=== PATIENT | male | born 1950 | race Caucasian/White ===

== ENCOUNTER → 2016-07-31 | Outpatient (CLI) | payer OTHER ==
--- NOTE | 2016-07-31 13:18 | DIAGNOSTIC IMAGING REPORT ---
ULTRASOUND OF THE CAROTID ARTERIES CLINICAL HISTORY: Hollenhorst plaque. COMPARISON STUDY: No priors. TECHNIQUE: Real-time, grayscale, and color Doppler sonography of the carotid arteries is performed. Images are reviewed in the transverse and longitudinal planes. FINDINGS: Blood pressure in the right arm measures 140/80 and blood pressure in the left arm measures 130/80. The carotid arteries are patent bilaterally and demonstrate antegrade flow. There is no significant atherosclerotic plaque seen. Normal doppler arterial waveforms are seen throughout. Velocity measurements are listed below. Common carotid peak systolic velocity (cm/sec): RIGHT: 63 LEFT: 62 ICA proximal peak systolic velocity (cm/sec): RIGHT: 40 LEFT: 44 ICA mid peak systolic velocity (cm/sec): RIGHT: 77 LEFT: 47 ICA distal peak systolic velocity (cm/sec): RIGHT: 82 LEFT: 70 ICA/CC peak systolic ratio: RIGHT: 1.3 LEFT: 1.1 Antegrade flow was shown in the vertebral arteries. The external carotid arteries are patent. IMPRESSION: 1. There is no sonographic evidence of hemodynamically significant stenosis in the right or left carotid arterial system. 2. Antegrade flow is shown in the vertebral arteries. Electronically signed by: Baudilio Soni M.D. 07/31/2016 1:17 PM Dictated Date/Time: 07/31/2016 1:16 PM
== END | disposition home or self-care (01) ==
LOC: C.ULTR 12:25
PROVIDERS: ATTEND Ophthalmology
DX: H34.212 Partial retinal artery occlusion, left eye (principal)

== ENCOUNTER 2023-12-29 15:57 | Inpatient (IN) ==
--- NOTE | 2023-12-29 16:26 | Emergency Department Note ---
Impression & Plan Chest pain, COPD (chronic obstructive pulmonary disease) ED Provider Note NAME: SRAVANTHI KOCH AGE: 73 SEX: M : 1950 ARRIVES VIA: Walk-In INFORMANT: Patient, ED PROVIDER(S): Pavel Isaac MD CHIEF COMPLAINT: Chest pain MEDICAL DECISION MAKING: Patient presents due to concern for chest pain. IV was established and blood work was obtained. Nitro and aspirin ordered. Blood work shows a normal white count H&H and platelet count. The patient's kidney function is unremarkable. Mild hyponatremia 135. Initial troponin negative. Patient is a heavy smoker does not had any provocative testing in several years. Patient did feel better after the nitro and aspirin. Given this do believe the patient would benefit further evaluation treatment and monitoring. I did speak with the patient informed him of the recommendations and he is comfortable with the plan of care as does his . Spoke with KRZYSZTOF Nieto and the patient was admitted by Dr. Cummings. Discussion w/ other healthcare providers: KRZYSZTOF Nieto and Dr. Cummings inpatient medicine service Prior /Outside records reviewed: None Differential diagnosis: Cardiac ischemia, aortic dissection, pulmonary embolism, pneumothorax, pneumonia, pericarditis, myocarditis, GERD, cholecystitis, pancreatitis, musculoskeletal, as well as other pathologies were considered. Diagnostics, as interpreted by me: ECG: Normal sinus rhythm, rate of 83, normal intervals, left axis deviation no ST elevations. Cardiac monitoring: An order was placed for continuous cardiac monitoring. The monitor shows a rate of 83 with sinus rhythm. Patient was placed on pulse oximetry Medical decision rules: Heart score Imaging studies: I informally interpreted the patient's chest x-ray does not show obvious pneumonia or pneumothorax with formal report to follow. HPI: Patient presents due to concern for chest pain. The patient states that this began maybe about 30 minutes ago while driving as they were coming up over the [facility]. Patient states that he does have a recent concern with regard to an EKG that showed a possible prior heart attack and the patient was to be scheduled for a nuclear stress test. The patient has yet to complete this. The patient states that it still feels "funny in there." He states that "something is not right." Patient Nuys any prior history of known heart disease. Patient does have a known history of COPD with chronic cough. Patient is still a smoker. Patient also reports that he does have a prior history of a thoracic aortic aneurysm about 4-1/2 cm which gets monitored. Patient denies any exertional symptoms per se but the patient states that he does not do any significant activity given his history of his aneurysm as he has been told not to. Patient denies any falls or trauma. The patient does have mild leg swelling which is relatively unchanged for the patient. PAST MEDICAL HISTORY: See Below PAST SURGICAL HISTORY: See Below SOCIAL HISTORY: See Below HOME MEDICATIONS: See Below ALLERGIES: See Below VITALS: See Below PHYSICAL EXAMINATION: GENERAL: NAD, non-toxic. Wearing glasses. EYE EXAM: Normal conjunctiva. PERRL, no anisocoria and EOM's grossly intact w/o pain. OROPHARYNX: Moist mucus membranes, grossly normal dentition. NECK: Trachea midline, no stridor. LUNGS: Scant wheeze bilateral chest. Normal chest wall mechanics. HEART: NSR, no MRG. ABDOMEN: Abdomen soft, non-tender, no masses, no rebound or guarding. BACK: No CVA TTP. SKIN: No rashes and no bruising. UPPER EXTREMITIES: Upper extremities are grossly normal. LOWER EXTREMITIES: Grossly normal, trace pretibial edema without calf pain or erythema. NEURO EXAM: A&O x3, cranial nerves II-XII grossly intact, normal speech, moves all 4 extremities. Past Med/Surg History Problem List (Updated 12/29/23 @ 22:01 by Pavel Isaac MD) Chest pain (Acute) Tobacco use History of AAA (abdominal aortic aneurysm) repair COPD (chronic obstructive pulmonary disease) (Acute) Chest pain, rule out acute myocardial infarction Surgical History No pertinent past surgical history Family History Other Coronary heart disease Social History Smoking Status: Current every day smoker Cigarettes Per Day: 2.5 ppd; Second Hand Exposure: No; Do You Dip or Chew Tobacco: No; Tobacco Cessation Education Requested by Patient: Yes Hx Alcohol Use: Yes Alcohol type: beer Alcohol type Comment: up to 6 beers almost every daily Hx Substance Use: No Preferred Language: Samoan Feels Safe at Home: Yes Allergies Allergies Allergy/AdvReac Type Severity Reaction Status Date / Time tree and shrub pollen Allergy Difficulty Verified 12/29/23 21:21 Breathing bee pollen AdvReac Redness of Verified 12/29/23 21:21 Skin Home Meds Home Medications Medication Instructions Recorded Confirmed None (Patient States No Home Meds) ##0 12/21/09 albuterol 90 mcg/actuation aerosol 108 mcg inhalation Q4H PRN sob 12/29/23 12/29/23 inhaler amlodipine 5 mg tablet 5 mg PO DAILY 12/29/23 12/29/23 cholestyramine (with sugar) 4 gram 4 g PO DAILY PRN cholesterol 12/29/23 12/29/23 powder for susp in a packet (Questran) fluticasone furoate 100 1 inh inhalation DAILY 12/29/23 12/29/23 mcg-vilanterol 25 mcg/dose inhalation powder folic acid 1 mg tablet 1 mg PO DAILY 12/29/23 12/29/23 mecobalamin (vitamin B12) 1,000 1,000 mcg PO DAILY 12/29/23 12/29/23 mcg chewable tablet (B12 Active) rosuvastatin 40 mg PO DAILY 12/29/23 12/29/23 Results & Data (ED) Vital Signs Vital Signs - 24 hr 12/29/23 16:02 12/29/23 16:02 12/29/23 16:21 Temperature 36.5 C Temperature Source Temporal Artery Scan Pulse Rate 85 84 Respiratory Rate 17 Respiratory Effort / Characteristics SOB on Exertion Blood Pressure 137/81 Blood Pressure Mean 99 Pulse Oximetry 92 Oxygen Delivery Method Room Air Sepsis Recent Fever Within 48 Hours No Sepsis New/Unexplained Change in Mental Status N/A Sepsis Action Taken by Nursing No Action Required 12/29/23 17:28 12/29/23 17:28 12/29/23 20:27 Temperature Temperature Source Pulse Rate 75 74 Respiratory Rate 18 Respiratory Effort / Characteristics Blood Pressure Blood Pressure Mean Pulse Oximetry 92 Oxygen Delivery Method Room Air Room Air Sepsis Recent Fever Within 48 Hours Sepsis New/Unexplained Change in Mental Status Sepsis Action Taken by Halfway Medications Current Medication List: was personally reviewed by me Laboratory Data Attestation: I reviewed the patient's lab results. 12/29/23 16:11 12/29/23 16:11 Lab Results 10/21/24 10/21/24 Range/Units 16:11 20:40 WBC 7.86 (4.8-10.8) K/ul RBC 5.09 (4.70-6.10) M/uL Hgb 17.2 (14.0-18.0) g/dl Hct 48.6 (42.0-52.0) % MCV 95.5 (80.0-100.0) fL MCH 33.8 (25.0-34.0) pg MCHC 35.4 (32.0-36.0) g/dL RDW Std Deviation 41.1 (36.4-46.3) fL RDW Coeff of Zenaida 11.8 (11.5-14.5) % Plt Count 262 (130-400) K/uL MPV 10.4 (9.4-12.4) fL Immature Gran % (Auto) 1.1 % Neut % (Auto) 42.0 % Lymph % (Auto) 41.2 % Frederick % (Auto) 10.9 % Eos % (Auto) 3.7 % Baso % (Auto) 1.1 % Neut # (Auto) 3.29 (1.40-6.50) K/uL Lymph # (Auto) 3.24 (1.20-3.40) K/uL Frederick # (Auto) 0.86 H (0.11-0.59) K/uL Eos # (Auto) 0.29 (0.00-0.50) K/uL Baso # (Auto) 0.09 (0.00-0.20) K/uL Immature Gran # (Auto) 0.09 (0.01-0.20) K/uL PT 10.9 (9.0-12.0) Seconds INR 1.0 (0.9-1.1) APTT 27 (21-31) Seconds PTT Ratio 1.0 Sodium 135 L (136-145) mmol/L Potassium 3.9 (3.5-5.1) mmol/L Chloride 100 (98-107) mmol/L Carbon Dioxide 29 (21-32) mmol/L Anion Gap 6 (3-11) BUN 7 (6-23) mg/dl Creatinine 0.83 (0.6-1.4) mg/dl Est Cr Clr Drug Dosing 101.8 ml/min eGFR 92.99 BUN/Creatinine Ratio 8.4 L (10-20) Glucose 94 (70-99(Fasting)) mg/dl Calcium 9.5 (8.6-10.3) mg/dl Total Bilirubin 1.1 H (0.2-1.0) mg/dl AST 18 (13-39) U/L ALT 13 (7-52) U/L Alkaline Phosphatase 63 (34-104) U/L Troponin I High Sens 5.1 5.1 (0-20) pg/ml Total Protein 7.3 (6.0-8.3) gm/dl Albumin 4.4 (3.4-5.0) gm/dl Globulin 2.9 (2.5-4.0) gm/dl Albumin/Globulin Ratio 1.5 (0.9-2) Triglycerides 101 (0-150) mg/dl Cholesterol 114 (0-200) mg/dl LDL Cholesterol, Calc 45 mg/dl VLDL Cholesterol, Calc 20 (0-30) mg/dl HDL Cholesterol 49 mg/dl Cholesterol/HDL Ratio 2.3 (0-5) Vitamin B12 353 (180-914) pg/ml TSH 2.718 (0.300-4.500) uIu/ml Administered Medications Discontinued Medications Aspirin (Aspirin Chew 324 Mg) 324 mg PO NOW STA Stop: 12/29/23 16:42 Last Admin: 12/29/23 16:54 Dose: 324 mg Documented By: CEF Gabapentin (Gabapentin 400 Mg Cap) 800 mg PO NOW ONE Stop: 12/29/23 20:01 Last Admin: 12/29/23 20:26 Dose: 800 mg Documented By: CEF Nitroglycerin (Nitroglycerin Sl 0.4 Mg/Tab Tab) 0.4 mg SL NOW STA Stop: 12/29/23 16:42 Last Admin: 12/29/23 16:54 Dose: 0.4 mg Documented By: CEF Imaging Data Radiologist's Impression: Chest X-Ray 12/29/23 16:05 SINGLE VIEW CHEST CLINICAL HISTORY: Atypical chest pain FINDINGS: 2 AP, portable, upright chest radiographs are compared to study dated 12/21/2009. The examination is degraded by portable technique and apical lordotic positioning. The heart is enlarged noting atherosclerotic calcification of the thoracic aorta. The pulmonary vasculature is noncongested. Chronic interstitial thickening is similar to previous. There are scattered calcified granulomas. No airspace consolidation or large pleural effusion is identified. No pneumothorax is seen. The skeletal structures are osteopenic. The bony thorax is grossly intact. IMPRESSION: Cardiomegaly with no acute cardiopulmonary abnormality identified. ACT 112: Negative or not required by law. Electronically signed by: Baudilio Soni M.D. 12/29/2023 6:06 PM Discharge Plan Visit Data Chief Complaint: Cardiac Assessment Stated Complaint: CHESST PAIN, SOB, ED Provider: Pavel Isaac Discharge Problem: Chest pain, COPD (chronic obstructive pulmonary disease) Forms Stand Alone Forms: [employer] Prescriptions Prescriptions: No Action None (Patient States No Home Meds) . Qty: 0 folic acid 1 mg Tablet 1 mg PO DAILY albuterol 90 mcg/actuation Aerosol 108 mcg INHALATION Q4H PRN (Reason: sob) cholestyramine (with sugar) [Questran] 4 gram Powder In Packet 4 g PO DAILY PRN (Reason: cholesterol) Rx Instructions: administer w/meal; avoid other meds within 1hr before or 4-6hr after dose fluticasone furoate-vilanterol 100-25 mcg/dose Blister With Device 1 inh INHALATION DAILY mecobalamin (vitamin B12) [B12 Active] 1,000 mcg Tablet,Chewable 1,000 mcg PO DAILY rosuvastatin 40 mg PO DAILY amlodipine 5 mg tablet 5 mg PO DAILY Rx Instructions: UNABLE TO VERIFY WITH PT THIS IS PER PHARMACY FILL Referrals Referrals: Vilma Winters, [Outside Practitioners] - Discharge Problem: Chest pain Qualifiers: Chest pain type: unspecified Qualified Code(s): R07.9 - Chest pain, unspecified COPD (chronic obstructive pulmonary disease) Qualifiers: COPD type: unspecified COPD Qualified Code(s): J44.9 - Chronic obstructive pulmonary disease, unspecified
[2023-12-29 16:29] LABS: Basophils # (auto) 0.09 K/uL (0.00-0.20); Basophils % (auto) 1.1 %; Eosinophils # (auto) 0.29 K/uL (0.00-0.50); Eosinophils % (auto) 3.7 %; Hematocrit (blood only) 48.6 % (42.0-52.0); Hemoglobin 17.2 g/dl (14.0-18.0); Immature Granulocytes # (auto) 0.09 K/uL (0.01-0.20); Immature Granulocytes % (auto) 1.1 %; Lymphocytes # (auto) 3.24 K/uL (1.20-3.40); Lymphocytes % (auto) 41.2 %; Mean Corpuscular Hemoglobin 33.8 pg (25.0-34.0); Mean Corpuscular Hgb Conc 35.4 g/dL (32.0-36.0); Mean Corpuscular Volume 95.5 fL (80.0-100.0); Mean Platelet Volume 10.4 fL (9.4-12.4); Monocytes # (auto) 0.86 K/uL (0.11-0.59); Monocytes % (auto) 10.9 %; Neutrophils # (auto) 3.29 K/uL (1.40-6.50); Platelet Count 262 K/uL (130-400); RDW Coefficient of Variation 11.8 % (11.5-14.5); RDW Standard Deviation 41.1 fL (36.4-46.3); Red Blood Count 5.09 M/uL (4.70-6.10); White Blood Count 7.86 K/ul (4.8-10.8)
[2023-12-29 16:44] LABS: Albumin Globulin Ratio 1.5 (0.9-2); Albumin Level 4.4 gm/dl (3.4-5.0); BUN Creatinine Ratio 8.4 (10-20); Bilirubin,Total 1.1 mg/dl (0.2-1.0); Calcium 9.5 mg/dl (8.6-10.3); Creatinine Clr Calc Pharmacy 101.8 ml/min; Globulin 2.9 gm/dl (2.5-4.0); Potassium 3.9 mmol/L (3.5-5.1); Total Protein 7.3 gm/dl (6.0-8.3)
[2023-12-29 16:50] LABS: Troponin I High Sensitivity 5.1 pg/ml (0-20)
[2023-12-29] MEDS: NITROGLYCERIN SL 0.4 MG/TAB TAB SL STA (16:54)
[2023-12-29] MEDS: ASPIRIN CHEW 324 MG PO STA (16:54)
[2023-12-29 17:00] LABS: Partial Thromboplastin Time 27 Seconds (21-31); Prothrombin Time 10.9 Seconds (9.0-12.0)
--- NOTE | 2023-12-29 18:07 | XRay Report ---
SINGLE VIEW CHEST CLINICAL HISTORY: Atypical chest pain FINDINGS: 2 AP, portable, upright chest radiographs are compared to study dated 12/21/2009. The exami nation is degraded by portable technique and apical lordotic positioning. The heart is enlarged notin g atherosclerotic calcification of the thoracic aorta. The pulmonary vasculature is noncongested. Chr onic interstitial thickening is similar to previous. There are scattered calcified granulomas. No air space consolidation or large pleural effusion is identified. No pneumothorax is seen. The skeletal st ructures are osteopenic. The bony thorax is grossly intact. IMPRESSION: Cardiomegaly with no acute cardiopulmonary abnormality identified. ACT 112: Negative or not required by law. Electronically signed by: Baudilio Soni M.D. 12/29/2023 6:06 PM
[2023-12-29] MEDS ORDERED: POLYETHYLENE (MIRALAX) 17 GM PACK PO PRN (19:02)
[2023-12-29] MEDS ORDERED: MAGNESIUM HYDROXIDE SUSP 30 ML UDC PO PRN (19:02)
[2023-12-29] MEDS ORDERED: ACETAMINOPHEN 325 MG TAB PO PRN (19:02)
[2023-12-29] MEDS ORDERED: ONDANSETRON INJ 2 MG/ML 2 ML VIAL IV PRN (19:02)
[2023-12-29] MEDS ORDERED: Patient's HEIGHT &/or WEIGHT Needed SCH (19:15)
--- NOTE | 2023-12-29 19:15 | History & Physical Report ---
Date of Service December 29, 2023 Assessment & Plan (1) Chest pain, rule out acute myocardial infarction: (2) COPD (chronic obstructive pulmonary disease): (3) History of AAA (abdominal aortic aneurysm) repair: (4) Tobacco use: Plan Mr. Pruett is a 73-year-old male who presented to the ED today after he started to have crushing anterior chest pain that resulted in him having to lung puller his car. He reports that this pain is the second time that he has experienced this with the first 1 being last week. [facility] was evaluated [facility] the [facility] and is to have a nuclear stress test and echo scheduled which has not been done yet. Past medical history includes: HLD, HTN, history of thoracic AAA COPD (no CPAP or supplemental home O2), alcohol use (up to a 6 pack of beer daily), tobacco use (2.5 ppd), His AAA measuring 4.5 cm per patient that is monitored as an outpatient every 6 to 12 months with the last scan being approximately 1 year ago. No leukocytosis, troponin negative, LFTs negative, otherwise electrolytes unremarkable. CXR reveals cardiomegaly without acute cardiopulmonary disease process. Patient receives most care through the [facility], but also sees Dr. Bulladr. ECG in ED normal sinus rhythm. He states that when he went for his yearly exam with the [facility] they did an EKG and noted that he may have had a prior AMI for which an outpatient stress test and echocardiogram was to be performed which has not been scheduled yet. Normotensive and not hypoxic in the ED. ED provider gave aspirin and nitro with full resolution of chest pain. Chest pain rule out AMI: Acute moderate risk heart score; admit to PCU ECG NSR Initial troponin negative; trend x1 ASA plus nitro given in ED with full resolution of his chest pain Echo ordered Check TSH EKG PRN NPO after MN pending cards consult Cardiology consult placed History of thoracic AAA: Chronic measuring 4.5 cm [id number]; last scan one year ago ECHO ordered Alcohol use: Chronic Drinks up to 6 pack of beer daily Takes Folic Acid at home Thiamine and Folic acid while here AWSS scale ordered with Gabapentin + Ativan PRN COPD: Tobacco use: Chronic Smokes 2.5 ppd Hold on Nicotine patch for now given symptoms Smoking cessation recommended HTN: Chronic Takes amlodipine; continue Heart Healthy diet/NPO after MN as outlined above HLD: Chronic Takes rosuvastatin; continue Lipid panel ordered Disposition: PCP: [facility] CODE STATUS: Full code VTE prophylaxis: Heparin SQ I spent a total of 86 minutes coordinating, documenting, and providing care for this patient excluding time spent in the performance of separately billed services. All of the aforementioned completed while collaborating with the assigned attending physician for a full treatment plan. Please see their addendum for further details. History of Present Illness Chief Complaint: chest pain Primary Care Provider: [facility] Mr. Pruett is a 73-year-old male who presented to the ED today after he started to have Crushing anterior chest pain that resulted in him having to lung puller his car. He reports that this pain is the second time that he has experienced this with the first 1 being last week. He was evaluated at the [facility] and is to have a nuclear stress test and echo scheduled which has not been done yet. Past medical history includes: HLD, HTN, history of thoracic AAA COPD (no CPAP or supplemental home O2), alcohol use (up to a 6 pack of beer daily), tobacco use (2.5 ppd), His AAA measuring 4.5 cm per patient that is monitored as an outpatient every 6 to 12 months with the last scan being approximately 1 year ago.Notes that he has a cyst in his throat that he is following up with ENT to have a biopsy with on January 21 2024. In the ED no leukocytosis, troponin negative, LFTs negative, otherwise josiane ctrolytes unremarkable. CXR reveals cardiomegaly without acute cardiopulmonary disease process. Patient receives most care through the [facility], but also sees Dr. Bullard. ECG in ED normal sinus rhythm. He states that when he went for his yearly exam with the [facility] they did an EKG and noted that he may have had a prior AMI for which an outpatient stress test and echocardiogram was to be performed which has not been scheduled yet. Normotensive and not hypoxic in the ED. ED provider gave aspirin and nitro with full resolution of chest pain. Currently patient denies headache, visual or auditory changes, chest pain, shortness of breath, nausea, vomiting, diarrhea, abdominal pain or tenderness, hematochezia or dysuria, recent falls or trauma. Currently, patient sitting in his hospital bed in no apparent distress without chest pain. He states that he does have some intermittent LE swell, but he also takes Amlodipine. No LE swelling today. Patient will be admitted for further evaluation of management of his chest pain. Please see A/P for further details. Home Medications Medication Instructions Recorded Confirmed Type None (Patient States No Home Meds) ##0 12/21/09 History albuterol 90 mcg/actuation aerosol 108 mcg inhalation Q4H PRN sob 12/29/23 12/29/23 History inhaler amlodipine 5 mg tablet 5 mg PO DAILY 12/29/23 12/29/23 History cholestyramine (with sugar) 4 gram 4 g PO DAILY PRN cholesterol 12/29/23 12/29/23 History powder for susp in a packet (Questran) fluticasone furoate 100 1 inh inhalation DAILY 12/29/23 12/29/23 History mcg-vilanterol 25 mcg/dose inhalation powder folic acid 1 mg tablet 1 mg PO DAILY 12/29/23 12/29/23 History mecobalamin (vitamin B12) 1,000 1,000 mcg PO DAILY 12/29/23 12/29/23 History mcg chewable tablet (B12 Active) rosuvastatin 40 mg PO DAILY 12/29/23 12/29/23 History Past Med/Surg History Problem List (Updated 12/29/23 @ 19:13 by KRZYSZTOF Minaya) Tobacco use History of AAA (abdominal aortic aneurysm) repair COPD (chronic obstructive pulmonary disease) Chest pain, rule out acute myocardial infarction Surgical History (Updated 12/29/23 @ 20:00 by KRZYSZTOF Minaya) No pertinent past surgical history Family History (Updated 12/29/23 @ 20:00 by KRZYSZTOF Minaya) Other Coronary heart disease Social History (Updated 12/29/23 @ 20:01 by KRZYSZTOF Minaya) Smoking Status: Current every day smoker Cigarettes Per Day: 2.5 ppd; Second Hand Exposure: No; Do You Dip or Chew Tobacco: No; Tobacco Cessation Education Requested by Patient: Yes Hx Alcohol Use: Yes Alcohol type: beer Alcohol type Comment: up to 6 beers almost every daily Hx Substance Use: No Preferred Language: Citizen Of [place] Feels Safe at Home: Yes Review of Systems Review of Systems: Neuro: (-) Falls, trauma, slurred speech HEENT: (-) BUSTAMANTE, dizziness, dysphagia, visual or auditory changes CV: (-) CP, palpitations, swelling Resp: (-) SOB GI: (-) appetite changes, N/V/D, bowel changes : (-) urinary changes Skin: (-) rashes Psych: (-) anxiety, depression Physical Exam Physical Exam: Neuro: AAOx4, PERRLA, no aphagia, memory changes, CNII-XII grossly intact HEENT: head normocephalic, moist mucus membranes CV: S1/S2, (-) M/G/R, (-) edema, cap refill < 3 seconds Resp: Lungs CTA in all rahman. On RA GI: Abdomen S/NT/ND, Ax4 bowel sounds, (-) CVA tenderness Musculoskeletal: 5/5 B/L UE strength, 5/5 B/L LE strength. No gait disturbance Skin: (-) rashes , (-) erythema. Psych: euthymic mood Results & Data Results & Data Vital Signs (Past 12 Hours) Vital Signs Temp Pulse Resp BP Pulse Ox O2 Del Method 12/29/23 17:28 Room Air 12/29/23 17:28 75 18 92 Room Air 12/29/23 16:21 84 12/29/23 16:02 36.5 C 85 17 137/81 92 Room Air Laboratory Results Short CBC 12/29/23 Range/Units 16:11 WBC 7.86 (4.8-10.8) K/ul Hgb 17.2 (14.0-18.0) g/dl Hct 48.6 (42.0-52.0) % Plt Count 262 (130-400) K/uL BMP 12/29/23 16:11 Sodium 135 L Potassium 3.9 Chloride 100 Carbon Dioxide 29 BUN 7 Creatinine 0.83 Glucose 94 Calcium 9.5 Liver Function 12/29/23 Range/Units 16:11 Total Bilirubin 1.1 H (0.2-1.0) mg/dl AST 18 (13-39) U/L ALT 13 (7-52) U/L Alkaline Phosphatase 63 (34-104) U/L Albumin 4.4 (3.4-5.0) gm/dl Diagnostic Findings Chest X-Ray 12/29/23 16:05 SINGLE VIEW CHEST CLINICAL HISTORY: Atypical chest pain FINDINGS: 2 AP, portable, upright chest radiographs are compared to study dated 12/21/2009. The examination is degraded by portable technique and apical lordotic positioning. The heart is enlarged noting atherosclerotic calcification of the thoracic aorta. The pulmonary vasculature is noncongested. Chronic interstitial thickening is similar to previous. There are scattered calcified granulomas. No airspace consolidation or large pleural effusion is identified. No pneumothorax is seen. The skeletal structures are osteopenic. The bony thorax is grossly intact. IMPRESSION: Cardiomegaly with no acute cardiopulmonary abnormality identified. ACT 112: Negative or not required by law. Electronically signed by: Baudilio Soni M.D. 12/29/2023 6:06 PM Code Status & VTE Plan Code Status Full code in the event of cardiac or respiratory arrest. VTE Prophylaxis Plan VTE Prophylaxis will be ordered: Yes Supervising Physician Co-Signing Physician Notes 73-year-old male with PMH of HTN, HLD, AAA, COPD, alcohol use, tobacco use presented to the ED after having crushing anterior chest pain while driving, no radiation, relieved with aspirin and nitro given in the ED. Labs reviewed, troponin 5.1, LDL 45, TSH WNL. CXR with no acute finding. EKG with no acute ST or T changes. Chest pain rule out ACS, trend troponin, get echo, telemetry monitoring, nitroglycerin as needed, EKG as needed with chest pain, cardiology consult. [facility] protocol for alc use disorder. folic acid, thiamine On exam: GENERAL: Alert and oriented x3. NAD, on RA. HEENT: No pallor, no icterus. Pupils equal, round and reactive to light. Oral mucosa moist. NECK: No JVD, no neck masses. HEART: S1 and S2 heard. Regular rate and rhythm. No murmur, no gallop. RESPIRATORY SYSTEM: Normal AP diameter. No accessory muscle use. No wheezing, no crackles. diminished breath sounds b/l. ABDOMEN: Soft, bowel sounds present, nontender, no distention. CENTRAL NERVOUS SYSTEM: No facial droop. Speech is clear. Obeys simple commands. Moves extremities. EXTREMITIES: No edema, no erythema seen. I have seen and examined the patient and have discussed the case with the provider above. I agree with the assessment and plan as stated. Time spent: 30 min.
[2023-12-29 19:35] LABS: Chol HDL Ratio 2.3 (0-5)
[2023-12-29] MEDS ORDERED: LORazepam 2 MG/1 ML VIAL IV PRN (19:42)
[2023-12-29] MEDS ORDERED: ALBUTEROL HFA INHALER 8.5 GM INH PRN (19:42)
[2023-12-29] MEDS ORDERED: GABAPENTIN 800MG ALCOHOL WITHDRAWAL LOAD PO STA (19:42)
[2023-12-29 19:51] LABS: Thyroid Stimulating Hormone 2.718 uIu/ml (0.300-4.500)
[2023-12-29] MEDS ORDERED: LORazepam 2 MG/1 ML VIAL--Active Protocol IV PRN ×4 (20:15→20:21)
[2023-12-29] MEDS: GABAPENTIN 400 MG CAP PO ONE (20:26)
[2023-12-29 22:11] LABS: Appearance Urine Clear (Clear); Bacteria Urine Automated None Seen (None Seen); Bilirubin Urine Negative (Negative); Blood Urine Negative (Negative); Cast Urine Automated 0-2 /lpf (0-2); Color Urine Yellow; Epithelial Cell Urine Auto 0-2 /hpf (0-2); Glucose Urine UA Negative (Negative); Ketones Urine Negative (Negative); Leukocyte Esterase Urine Trace (Negative); Nitrite Urine Negative (Negative); Protein Urine Negative (Negative); RBC Urine Automated 0-2 /hpf (0-2); Specific Gravity Urine 1.015 (1.000-1.030); Urobilinogen Urine Negative (Negative); WBC Urine Automated 0-5 /hpf (0-5)
--- OUTSIDE RECORDS SUMMARY | 2023-12-30 00:34 | External Medical Summary | Summary of Care ---
Author Name Unknown Organization [facility] Address [address] [place] [address] Phone [phone] Care Team Providers Care Electrical Automation Engineer Name Role Phone Alfa Bullard MD Primary Care Provider Reason for Visit * Reason Onset Date Comments Advice 09/01/2023 Encounter Details Date Type Department Care Team (Late st Contact Info) Description 09/01/2023 Telephone [facility] [address] [place] [address] Alfa Bullard MD [address] [place] [address] Advice Allergies Active Allergy Reactions Criticality Noted Date Comments Bee Venom 08/19/2016 Other - Drugs 02/08/2005 temporary dental cement--swelling documented as of this encounter (statuses as of 09/03/2023) Medications Medication Sig Dispensed Refills Start Date End Date Status albuterol (PROVENTIL HFA) 108 (90 BASE) MCG/ACT inhalerIndications:COPD exacerbation (HCC),COPD, mild (HCC) Inhale 2 Puffs by mouth every 4 hours as needed for Wheezing. 1 Inhaler 1 07/13/2016 Active SUMAtriptan Succinate 50 MG Oral Tablet Take 1 Tablet by mouth every 2 hours as needed for Migraine. Active atorvaSTATin (LIPITOR) 20 MG TabletIndications:Thora cic ascending aortic aneurysm (HCC),Mixed hyperlipidemia Take 1 Tab by mouth daily. 90 Tab 3 11/24/2019 Active Folic Acid 1 MG Oral Tablet daily. Active Vitamin B-12 1000 MCG Oral Tablet (Cyanocobalamin) Take 1 Tablet by mouth in the morning. Active Cholestyramine 4 GM Oral Packet (Questran) Take 1 Packet by mouth as needed. Active amLODIPine Besylate 5 MG Oral Tablet (Norvasc) Take 1 Tablet by mouth in the morning. 90 Tablet 1 07/18/2023 Active documented as of this encounter (statuses as of 09/03/2023) Active Problems Problem Noted Date Diagnosed Date HTN, goal below 140/90 05/30/2023 Mixed hyperlipidemia 03/11/2019 Pulmonary nodules 03/11/2019 Primary osteoarthritis of both knees 03/13/2018 Thoracic ascending aortic aneurysm 03/13/2018 COPD, mild 07/13/2016 Tobacco use disorder 02/06/2007 Hammer toe of right foot 12/24/2005 documented as of this encounter (statuses as of 09/03/2023) Resolved Problems Problem Noted Date Diagnosed Date Resolved Date Influenza A 03/11/2019 05/10/2019 Overview: Acute. Hyperlipidemia 09/22/2018 03/11/2019 Overview: No comments entered for problem. COPD exacerbation 03/13/2018 03/13/2018 Central retinal artery occlusion of left eye 7 03/11/2019 COPD exacerbation 07/13/2016 05/10/2019 Overview: Acute. Migraine variant 05/29/2016 05/30/2023 History of pancreatitis 05/29/201604/2019 Overview: Historical. Cellulitis of axilla, right 08/07/2013 05/29/2016 COPD bronchitis 08/04/2012 05/29/2016 Need for influenza vaccination 02/06/2007 05/29/2016 Abdominal pain, generalized 02/06/2007 05/29/2016 Nausea with vomiting 02/06/2007 017 VIRAL GASTROENTERITIS 02/06/20072016 ABDOMINAL PAIN, RIGHT LOWER QUADRANT, MUSCULAR 12/24/2005 05/29/2016 ADVANCE DIRECTIVE INFORMATION 01/11/2005 11/29/2016 Overview: No, Advance Directive brochure given to patient. Other, multiple, and unspeci fied sites, insect bite, nonvenomous, without mention of infection(919.4) 08/30/1999 05/29/2016 LOCAL ALLERGIC REACTION 08/30/199905/09 documented as of this encounter (statuses as of 09/03/2023) Immunizations Name Administration Dates Next Due Pneumococcal Conjugate Vacc, 13 Valent (Prevnar) 05/29/2016 Pneumococcal Polysaccharide PPV23 (Pneumovax) 08/28/2017,03/10/2013,08/04/2012,01/26 Seasonal Influenza, PF, 6 M & above, IM , (FluLaval or Fluzone) 11/24/2019 Seasonal Influenza, Split, I IV3, No Preserve, Inj 02/06/2007,04/12/2005 Seasonal Influenza, Split, I IV3, With Preserve, Inj 04/05/2019,01/26/2003 TD - Tetanus/Diptheria (ADULT) 03/10/2010 TDAP, Age 7 and older, IM (Adacel) 11/27/2009 Varicella Zoster Vaccine (Adult) 08/10/2013 documented as of this encounter Social History Tobacco Use Types Packs/Day Years Used Date Smoking Tobacco: Every Day Cigarettes 0.5 40 Started: 06/10/1973; Last attempted to quit: 06/10/2013 Smokeless Tobacco: Never Comments:cigarettes abuse Alcohol Use Standard Drinks/Week Comments Yes 0 (1 standard drink = 0.6 oz pur e alcohol) ocassionally PHQ-2 Answer Date Recorded PHQ-2 Score -1 11/28/2019 Hunger Vital Sign Answer Date Recorded Worried About Running Out of Food in the Last Ye ar Never true 03/11/2019 Ran Out of Food in the Last Year Never true 03/11/2019 Utilities Answer Date Recorded Do you have trouble paying y our heating, water, or electric bill? (Adult - for ages 18 years and over) Not on file 08/26/2023 Is your family able to pay t he heat, water, or electric bill? (Household - for ages 0-17 years) Not on file 08/26/2023 Does your family have access to good internet? (Household - for ages 0-17 years) Not on file 08/26/2023 Social Connections Answer Date Recorded How often do you feel lonely or isolated from those around you? (Adult - for ages 18 years and over) Not on file 08/26/2023 Sex and Gender Information Value Date Recorded Sex Assigned at Not on file Gender Identity Not on file Sexual Orientation Not on file Job Start Date Occupation Industry Not on file Not on file Not on file documented as of this encounter Miscellaneous Notes * Telephone Encounter - Enma Nunn LPN - 09/03/2023 9:02 AM EDT Called pt. Informed of message. He verbalized understanding. * Telephone Encounter - Alfa Bullard MD - 09/02/2023 5:19 PM EDT Notify: it is safe for him to fly * Telephone Encounter - Enma Nunn LPN - 09/01/2023 9:55 AM EDT Pt calling with questions about fly in the future. The has an ascending aortic aneurysm Last time he had it checked it measured 4.7. [facility]. He is inquiring if it is safe for him to fly? He planning trip from [place] to [place]. Please advise. * Telephone Encounter - Patti Baer OSA - 09/01/2023 9:53 AM EDT Patient is concerned if he is able to fly having an Aortic Aneurysm. documented in this encounter Plan of Treatment Upcoming Encounters Date Type Department Care Team (Late st Contact Info) Description 10/20/2023 2:00 PM EDT [facility] [address] [facility] [address] Alfa Bullard MD [address] [place] [facility] [place] [address] Health Maintenance Due Date Last Done Comments DISCUSS TOBACCO CESSATION (REFER TO SMARTSET #6079) 1950 Albumin/Creatinine Ratio 1969 Alpha-1 Antitrypsin 1969 Cologuard 02/26/1996 Sigmoidoscopy 02/26/1996 Fecal Occult Blood Test 11/27/2010 11/27/2009 DTaP,Tdap,and Td Vaccines (3 - Td or Tdap) 03/10/2020 03/10/2010, 11/27/2009 Colonoscopy 08/15/2020 08/16/2015, 03/10, 04/10/2005 Colorectal Cancer Screening 08/15/2020 Depression Screening 11/23/2020 11/24/2019 COVID-19 Vaccine (3 - 2022- season) 2023 12/19/2022, 05/16/2020 GFR 06/14/2023 06/13/2022, 04/2019, 08/18/2018, Additional history exists Lipid Panel 08/20/2023 08/19/2018, 09/2018, 02/19/2017, Additional history exists Influenza Vaccine (FLU shot) (Season Ended) 2023 11/24/2019, 04/05/2019, 02/06/2007, Additional history exists O2 ASSESSMENT COMPLETED IN PAST YEAR FOR COPD 05/29/2024 05/30/2023 AAA Screening Completed 10/29/2014, 07/08, 06/30/2007 RETIRED - COLONOSCOPY-EVERY 5 YRS AGES 18-100 Discontinued 08/16/2015, 03/26/2010, 04/10/2005 Pneumococcal Vaccine: 65+ Years Completed 08/28/2017, 05/29/2016, 03/10/2013, Additional history exists Lung Cancer Screening Completed 03/29/2019 , 03/03/2019, 03/27/2017 Zoster Vaccines Completed 02/14/2022, 12/09, 08/10/2013 GARDASIL-HPV IMMUNIZATION SERIES Aged Out No longer eligible based on patient's age to complete this topic Hepatitis B Aged Out No longer eligi ble based on patient's age to complete this topic MENINGOCOCCAL (MENACTRA/MENVEO) Aged Out No longer eligible based on patient's age to complete this topic documented as of this encounter Medical Devices Not on filedocumented as of this encounter Care Teams Electrical Automation Engineer Relationship Specialty Start Date End Date Alfa Bullard MD [address] [facility] [id number] PCP - General Family Medicine 11/24/19 documented as of this encounter
--- OUTSIDE RECORDS SUMMARY | 2023-12-30 00:34 | External Medical Summary | Summary of Care ---
Author Name Unknown Organization [facility] Address [address] [place] [address] Phone [phone] Care Team Providers Care Landscape Engineer Name Role Phone Laura Bullard MD Primary Care Provider [phone] Reason for Visit * Reason Onset Date Comments Medication Refill 07/17/2023 Encounter Details Date Type Department Care Team (Late st Contact Info) Description 07/17/2023 Refill [place] [id number] [place] [address] Laura Bullard MD [address] [place] [address] Allergies Active Allergy Reactions Criticality Noted Date Comments Bee Venom 08/19/2016 Other - Drugs 02/08/2005 temporary dental cement--swelling documented as of this encounter (statuses as of 07/18/2023) Medications Medication Sig Dispensed Refills Start Date End Date Status albuterol (PROVENTIL HFA) 108 (90 BASE) MCG/ACT inhalerIndications:C OPD exacerbation (HCC),COPD, mild (HCC) Inhale 2 Puffs by mouth every 4 hours as needed for Wheezing. 1 Inhaler 1 07/13/2016 Active SUMAtriptan Succinate 50 MG Oral Tablet Take 1 Tablet by mouth every 2 hours as needed for Migraine. 0 Active atorvaSTATin (LIPITOR) 20 MG TabletIndications:Th oracic ascending aortic aneurysm (HCC),Mixed hyperlipidemia Take 1 Tab by mouth daily. 90 Tab 3 11/24/2019 Active Folic Acid 1 MG Oral Tablet daily. 0 Active Vitamin B-12 1000 MCG Oral Tablet (Cyanocobalamin) Take 1 Tablet by mouth in the morning. 0 Active Cholestyramine 4 GM Oral Packet (Questran) Take 1 Packet by mouth as needed. 0 Active amLODIPine Besylate 5 MG Oral Tablet (Norvasc) Take 1 Tablet by mouth in the morning. 90 Tablet 1 07/18/2023 Active amLODIPine Besylate 5 MG Oral Tablet (Norvasc) Take 1 Tablet by mouth in the morning. 90 Tablet 1 11/19/2022 07/17/2023 Discontinued (Refill) documented as of this encounter (statuses as of 07/18/2023) Active Problems Problem Noted Date Diagnosed Date HTN, goal below 140/90 05/30/2023 Mixed hyperlipidemia 03/11/2019 Pulmonary nodules 03/11/2019 Primary osteoarthritis of both knees 03/13/2018 Thoracic ascending aortic aneurysm 03/13/2018 COPD, mild 07/13/2016 Tobacco use disorder 02/06/2007 Hammer toe of right foot 12/24/2005 documented as of this encounter (statuses as of 07/18/2023) Resolved Problems Problem Noted Date Diagnosed Date Resolved Date Influenza A 03/11/2019 05/10/2019 Overview: Acute. Hyperlipidemia 09/22/2018 03/11/2019 Overview: No comments entered for problem. COPD exacerbation 03/13/2018 03/13/2018 Central retinal artery occlusion of left eye 7 03/11/2019 COPD exacerbation 07/13/2016 05/10/2019 Overview: Acute. Migraine variant 05/29/2016 05/30/2023 History of pancreatitis 05/29/2016 0304/2019 Overview: Historical. Cellulitis of axilla, right 08/07/2013 [...] as of this encounter (statuses as of 07/18/2023) Immunizations Name Administration Dates Next Due Pneumococcal Conjugate Vacc, 13 Valent (Prevnar) 05/29/2016 Pneumococcal Polysaccharide PPV23 (Pneumovax) 08/28/2017,03/10/2013,08/04/2012 Seasonal Influenza, PF, 6 M & above, IM , (FluLaval or Fluzone) 11/24/2019 Seasonal Influenza, Split, I IV3, No Preserve, Inj 02/06/2007,04/12/2005 Seasonal Influenza, Split, I IV3, With Preserve, Inj 04/05/2019 TD - Tetanus/Diptheria (ADULT) 03/10/2010 TDAP (age 11 and older)(Adacel) 11/27/2009 Varicella Zoster Vaccine (Adult) 08/10/2013 documented [...] in the Last Year Never true 03/11/2019 Sex and Gender Information Value Date Recorded Sex Assigned at Not on file Gender Identity Not on file Sexual Orientation Not on file Job Start Date Occupation Industry Not on file Not on file Not on file documented as of this encounter Miscellaneous Notes * Telephone Encounter - Sumanth Win, [facility] - 07/18/2023 9:21 AM EDTSigned Prescriptions: Disp Refills amLODIPine Besylate 5 MG Oral Tablet (Norv*90 Tab*1 Sig: Take 1 Tablet by mouth in the morning. Authorizing Provider: LAURA BULLARD Ordering User: SUMANTH BALDERAS * Telephone Encounter - Catie Dean PHARM Tech - 07/17/2023 8:40 AM EDT Did you pend patient's preferred pharmacy and medication before forwarding?yes Pharmacy: [facility] #[id number] [facility] Pending Prescriptions: Disp Refills amLODIPine Besylate 5 MG Oral Tablet (Nor*90 Tab*1 Sig: Take 1 Tablet by mouth in the morning. Last Visit: 05/30/2023 (in office), Visit date not found (telemedicine) Next Visit: 10/20/2023 If no future appointments scheduled, and last appointment is greater than a year ago, please schedule patient for a follow-up appointment Last date the medication was ordered: 11/19/2022 Is this request for a controlled substance?No Urine Drug Screen:No results found for this or any previous visit. Patient Phone Numbers Labs: Lab Results Component Value Date/Time CREAT 0.9 06/13/2022 02:33 PM CREAT 1.1 03/11/2019 09:47 AM POTASSIUM 4.6 06/13/2022 02:33 PM POTASSIUM 4.4 03/11/2019 09:47 AM TSH 1.85 06/13/2022 02:33 PM TSH 2.37 03/16/2018 12:00 AM TSH 1.39 11/27/2009 10:42 AM TSH 1.60 02/26/1996 11:45 AM LDLCALC 103 (A) 08/19/2018 12:00 AM LDLCALC 82 08/06/2012 08:20 AM LDLDIRECT 104 (H) 11/27/2009 10:42 AM ALT 12 06/13/2022 02:33 PM ALT 73 (H) 03/11/2019 09:47 AM documented in this encounter Plan of Treatment Upcoming Encounters Date Type Department Care Team (Late st Contact Info) Description 10/20/2023 2:00 PM EDT [facility] [address] [facility] [address] Laura Bullard MD [address] [facility] [place] [address] Health Maintenance Due Date Last Done Comments DISCUSS TOBACCO CESSATION (REFER TO SMARTSET #2366) 1950 Albumin/Creatinine Ratio 1969 Alpha-1 Antitrypsin 1969 Cologuard 02/26/1996 Sigmoidoscopy 02/26/1996 Fecal Occult Blood Test 11/27/2010 11/27/2009 AAA Screening 02/26/2016 DTaP,Tdap,and Td Vaccines (3 - Td or Tdap) 03/10/2020 03/10/2010, 11/27/2009 Colonoscopy 08/15/2020 08/16/2015, 03/10, 04/10/2005 Colorectal Cancer Screening 08/15/2020 Depression Screening 11/23/2020 11/24/2019 GFR 06/14/2023 06/13/2022, 04/2019, 08/18/2018, Additional history exists Lipid Panel 08/20/2023 08/19/2018, 09/2018, 02/19/2017, Additional history exists Influenza Vaccine (FLU shot) (Season Ended) 2023 11/24/2019, 04/05/2019, 02/06/2007, Additional history exists O2 ASSESSMENT COMPLETED IN PAST YEAR FOR COPD 05/29/2024 05/30/2023 RETIRED - COLONOSCOPY-EVERY 5 YRS AGES 18-100 Discontinued 08/16/2015, 03/26/2010, 04/10/2005 Pneumococcal Vaccine: 65+ Years Completed 08/28/2017, 05/29/2016, 03/10/2013, Additional history exists Lung Cancer Screening Completed 03/29/2019 , 03/03/2019, 03/27/2017 Zoster Vaccines Completed 02/14/2022, 12/09, 08/10/2013 COVID-19 Vaccine Completed 12/19/2022, 05/16/2020 GARDASIL-HPV IMMUNIZATION SERIES Aged Out No longer eligible based on patient's age to complete this topic Hepatitis B Aged Out No longer eligi ble based on patient's age to complete this topic MENINGOCOCCAL (MENACTRA/MENVEO) Aged Out No longer eligible based on patient's age to complete this topic documented as of this encounter Medical Devices Not on filedocumented as of this encounter Care Teams Landscape Engineer Relationship Specialty Start Date End Date Laura Bullard MD [address] [place] [address] PCP - General Family Medicine 11/24/19 documented as of this encounter
--- OUTSIDE RECORDS SUMMARY | 2023-12-30 00:34 | External Medical Summary | Summary of Care ---
Author Name Unknown Organization [facility] Address [address] [place] [address] Phone [phone] Care Team Providers Care Ordnance Mechanic Name Role Phone Alfa Bullard MD Primary Care Provider [phone] Reason for Visit * Reason Comments Physical-Exam Patient is here toda y for a physical. Patient states his knee pain and back pain seem to be getting increasingly worse. Encounter Details Date Type Department Care Team (Latest Contact Info) Description 10/23/2023 11:20 AM EDT Office Visit [facility] [address] [place] [address] Alfa Bullard MD [address] [place] [address] Need for tetanus, diphtheria, and acellular pertussis (Tdap) vaccine*; Need for ykgdyfybtw-hajwcer-uqzvw ssis (Tdap) vaccine; HTN, goal below 140/90; COPD, mild (HCC); Screening for cardiovascular condition; Coronary atherosclerosis due to calcified coronary lesion (CODE); Hyperlipidemia, unspecified hyperlipidemia type; COPD, moderate (HCC); LUCINDA (obstructive sleep apnea) Allergies Active Allergy Reactions Criticality Noted Date Comments Bee Venom 08/19/2016 Other - Drugs 02/08/2005 temporary dental cement--swelling documented as of this encounter (statuses as of 10/23/2023) Medications Medication Sig Dispensed Refills Start Date End Date Status albuterol (PROVENTIL HFA) 108 (90 BASE) MCG/ACT inhalerIndications:C OPD exacerbation (HCC),COPD, mild (HCC) Inhale 2 Puffs by mouth every 4 hours as needed for Wheezing. 1 Inhaler 1 07/13/2016 Active SUMAtriptan Succinate 50 MG Oral Tablet Take 1 Tablet by mouth every 2 hours as needed for Migraine. Active Folic Acid 1 MG Oral Tablet daily. Active Vitamin B-12 1000 MCG Oral Tablet (Cyanocobalamin) Take 1 Tablet by mouth in the morning. Active Cholestyramine 4 GM Oral Packet (Questran) Take 1 Packet by mouth as needed. Active amLODIPine Besylate 5 MG Oral Tablet (Norvasc) Take 1 Tablet by mouth in the morning. 90 Tablet 1 07/18/2023 Active Rosuvastatin Calcium 40 MG Oral Tablet (Crestor) Take 0.5 Tablets by mouth. 01/20/2023 Active Fluticasone Furoate-Vilanterol 100-25 MCG/ACT Inhalation Aerosol Powder Breath Activated (BREO ellipta)Indications: COPD, mild (HCC) Inhale 1 Puff by mouth in the morning. 3 Each 3 10/23/2023 Active atorvaSTATin (LIPITOR) 20 MG TabletIndications:Th oracic ascending aortic aneurysm (HCC),Mixed hyperlipidemia Take 1 Tab by mouth daily. 90 Tab 3 11/24/2019 10/23/2023 Discontinue d(Medicatio n List Clean Up) documented as of this encounter (statuses as of 10/23/2023) Active Problems Problem Noted Date Diagnosed Date Coronary atherosclerosis due to calcified coronary lesion (CODE) 10/23/2023 Hyperlipidemia 10/23/2023 HTN, goal below 140/90 05/30/2023 Mixed hyperlipidemia 03/11/2019 Pulmonary nodules 03/11/2019 Primary osteoarthritis of both knees 03/13/2018 Thoracic ascending aortic aneurysm 03/13/2018 COPD, mild 07/13/2016 Tobacco use disorder 02/06/2007 Hammer toe of right foot 12/24/2005 documented as of this encounter (statuses as of 10/23/2023) Resolved Problems Problem Noted Date Diagnosed Date [...] as of this encounter (statuses as of 10/23/2023) Immunizations Name Administration Dates Next Due Pneumococcal Conjugate Vacc, 13 Valent (Prevnar) 05/29/2016 Pneumococcal Polysaccharide PPV23 (Pneumovax) 08/28/2017,03/10/2013,08/04/2012 Seasonal Influenza, PF, 6 M & above, IM , (FluLaval or Fluzone) 11/24/2019 Seasonal Influenza, Split, I IV3, No Preserve, Inj 02/06/2007,04/12/2005 Seasonal Influenza, Split, I IV3, With Preserve, Inj 04/05/2019 TD - Tetanus/Diptheria (ADULT) 03/10/2010 TDAP, Age [...] e alcohol) ocassionally PHQ-2 Answer Date Recorded PHQ Adult Total Score 0 10/23/2023 Hunger Vital Sign Answer Date Recorded Within the past 12 months, y ou worried that your food would run out before you got the money to buy more. Never true 10/23/19 24 Within the past 12 months, t he food you bought just didn't last and you didn't have money to get more. Never true 10/23/2023 Childcare Answer Date Recorded Do you feel overwhelmed with taking care of a child, family member or friend? No 10/23/2023 Does your family need help f inding childcare? (Household - for ages 0-17 years) Not on file 10/23/2023 Clothing Answer Date Recorded Have you been unable to get clothing when it was really needed? No 10/23/2023 Is your family able to get c lothes or diapers when needed? (Household - for ages 0-17 years) Not on file 10/23/2023 Personal Safety Answer Date Recorded Do you feel unsafe or have concerns for your saf ety? No 10/23/2023 Do you have concerns for you r family's safety? (Household - for ages 0-17 years) Not on file 10/23/2023 Utilities Answer Date Recorded Do you have trouble paying y our heating, water, or electric bill? No 10/23/2023 Is your family able to pay t he heat, water, or electric bill? (Household - for ages 0-17 years) Not on file 10/23/2023 Does your family have access to good internet? (Household - for ages 0-17 years) Not on file 10/23/2023 Employment Status Answer Date Recorded Are you unemployed or without regular income? No 10/23/2023 Does the household have a re gular source of income? (Household - for ages 0-17 years) Not on file 10/23/2023 Social Connections Answer Date Recorded How often do you feel lonely or isolated from th ose around you? Never 10/23/2023 Financial Resource Strain Answer Date R ecorded Do you have any trouble payi ng for your medications, or do you think you might in the future? No 10/23/2023 Does your family have troubl e paying for medicine? (Household - for ages 0-17 years) Not on file 10/23/2023 Transportation Needs Answer Date Record ed Do you have trouble getting a ride to medical visits or work? (Adult - for ages 18 years and over) Not on file 10/23/2023 Does your family have a hard time getting a ride to doctors visits? (Household - for ages 0-17 years) Not on file 10/23/2023 Has lack of transportation k ept you from medical appointments, meetings, work, or from getting things needed for daily living? Check all that apply. No 10/23/2023 Do you (or your family) have trouble finding or paying for a ride (transportation)? (Household - for ages 0-17 years) Not on file 10/23/2023 Housing Stability Answer Date Recorded Do you currently live in a s helter or have no steady place to sleep at night? No 10/23/2023 Do you think you are at risk of becoming homeless? (Adult - for ages 18 years and over) Not on file 10/23/2023 Does your family worry about paying for your home or becoming homeless? (Household - for ages 0-17 years) Not on file 0 10/23/2023 Are you homeless or worried that you might be in the future? No 10/23/2023 Are you (or your family) chary eless or worried that you might be in the future? (Household - for ages 0-17 years) Not on file Food Insecurity Answer Date Recorded Do you need food for this week? No 10/23/2023 Are you able to get enough f ood for your family? (Household - for ages 0-17 years) Not on file 10/23/2023 Does your family need food t his week? (Household - for ages 0-17 years) Not on file 10/23/2023 Do you always have enough fo od for your family? (Household - for ages 0-17 years) Not on file 10/23/2023 Sex and Gender Information Value Date Recorded Sex Assigned at Not on file Gender Identity Not on file Sexual Orientation Not on file Job Start Date Occupation Industry Not on file Not on file Not on file documented as of this encounter Last Filed Vital Signs Vital Sign Reading Time Taken Comments Blood Pressure 116/82 10/23/2023 11:48 AM EDT Pulse 78 10/23/2023 11:48 AM EDT Temperature 36.1 C (96.9 F) 10/23/2023 11:48 AM E DT Respiratory Rate 16 10/23/2023 11:48 AM EDT Oxygen Saturation 95% 10/23/2023 11:48 AM EDT Inhaled Oxygen Concentration - - Weight 101.6 kg (224 lb) 10/23/2023 11:48 AM EDT Height 182.9 cm (6') 10/23/2023 11:48 AM EDT Body Mass Index 30.38 10/23/2023 11:48 AM EDT documented in this encounter Patient Instructions * Patient Instructions* Rafaela Manzanares LPN - 10/23/2023 11:47 AM EDT ~~PATIENT INSTRUCTIONS FOR TDAP VACCINE~~ Possible side effects of TDAP vaccine, (tetanus shot), are usually mild and can include: 1. Soreness or redness at injection site 2. Low grade fever 3. Body aches You may use a fever / pain reducing medication as needed for these symptoms. LET YOUR DOCTOR KNOW IMMEDIATELY IF YOU HAVE DIFFICULTY BREATHING OR SWALLOWING, EXPERIENCE ITCHINGOF FEET OR HANDS, HAVE SWELLING OF EYES, FACE OR INSIDE OF NOSE. documented in this encounter Progress Notes * Alfa Bullard MD - 10/23/2023 12:26 PM EDT Subjective: Otis Morton is a 73 year old male. Chief Complaint Patient presents with Physical-Exam Patient is here today for a physical. Patient states his knee pain and back pain seem to be getting increasingly worse. HPI: 73-year-old seen today as a routine recheck. [facility]. He lives [place] in [facility]. He has a diagnosis of COPD. He has had pulmonary function testing done although the last PFT he readings that are inhis chart or [facility] 4[facility] He tells me that he has had Um done since then. He also [facility] although we do not have a copy of that from the last year. He is due to have his annual blood work sometime next month [facility]. He does have issues with recurrent cough. He has typical smoker's morning cough and brings up phlegm. Only inhaler that he has his albuterol. He notes little affect using the albuterol. Review records show that 4 years ago he was given a prescription for Breo Ellipta. It is his recollection that henever really used the inhaler so we can not be sure whether it worked or not. He was found to have sleep apnea. Did not tolerate CPAP. Scheduled for oral surgery [facility] to make a dental appliance. Has had in the past and continues to have difficulty staying awake Um duringthe daytime Patient Active Problem List Diagnosis Hammer toe of right foot Tobacco use disorder COPD, mild (HCC) Primary osteoarthritis of both knees Thoracic ascending aortic aneurysm (HCC) Mixed hyperlipidemia Pulmonary nodules HTN, goal below 140/90 Current Outpatient Medications Medication Sig Dispense Refill albuterol (PROVENTIL HFA) 108 (90 BASE) MCG/ACT inhaler Inhale 2 Puffs by mouth every 4 hours as needed for Wheezing. 1 Inhaler 1 Folic Acid 1 MG Oral Tablet daily. Vitamin B-12 1000 MCG Oral Tablet (Cyanocobalamin) Take 1 Tablet by mouth in the morning. amLODIPine Besylate 5 MG Oral Tablet (Norvasc) Take 1 Tablet by mouth in the morning. 90 Tablet 1 Rosuvastatin Calcium 40 MG Oral Tablet (Crestor) Take 0.5 Tablets by mouth. SUMAtriptan Succinate 50 MG Oral Tablet Take 1 Tablet by mouth every 2 hours as needed for Migraine. Cholestyramine 4 GM Oral Packet (Questran) Take 1 Packet by mouth as needed. No current facility-administered medications for this visit. Review of patient's allergies indicates: Allergen Reactions Bee Venom Other - Drugs temporary dental cement--swelling Objective: BP 116/82 | Pulse 78 | Temp 36.1 C (96.9 F) (Tympanic) | Resp 16 | Ht 1.829 m (6') | Wt 101.6 kg (224 lb) | SpO2 95% | BMI 30.38 kg/m | BSA 2.27 m Physical Exam: CONST: alert, pleasant, no acute distress HEAD: normocephalic, atraumatic NECK: supple, soft, no adenopathy EARS: canals normal, TMs normal Eyes - PERRLA, EOM'I OROPHARYNX: clear, no swelling or erythema, moist CV: regular rate and rhythm, no murmur CHEST: clear to auscultation bilaterally, no rales or wheezing ABD: soft, non tender, non distended, no masses or hepatosplenomegaly EXT: no edema, no joint swelling or deformities, NEURO: AAOx3, no gross focal deficits, cerebellar signs normal, affect appropriate ASSESSMENT/PLAN: Need for tetanus, diphtheria, and acellular pertussis (Tdap) vaccine (Primary)- patient is given a note which in turn [facility] indicating [facility], he needs an update ontetanus. It is very possible that the [facility] has given [facility] update within the last 10 years. HTN, goal below 140/90-reasonable control. Continue amlodipine 5 mg daily COPD, mild (HCC)-moderate: Try again Breo Ellipta 1 puff daily. He is given a printed [facility] and [facility] if they will get this inhaler for him. Hyperlipidemia-continue rosuvastatin 40 mg daily. Anticipate he will have lipid profile done when he has [facility] next month. Routine health maintenance-highly recommended he get flu shot in the fall which he plans on. See again in 1 year or sooner if needed. Alfa Bullard MD documented in this encounter Nursing Notes * Rafaela Manzanares LPN - 10/23/2023 11:51 AM EDT The patient has been properly identified by confirmation of name and date of . Chief Complaint Patient presents with Physical-Exam Patient is here today for a physical. Patient states his knee pain and back pain seem to be getting increasingly worse. documented in this encounter Plan of Treatment Health Maintenance Due Date Last Done Comments DISCUSS TOBACCO CESSATION (REFER TO SMARTSET #4591) 1950 Albumin/Creatinine Ratio 1969 Alpha-1 Antitrypsin 1969 Cologuard 02/26/1996 Sigmoidoscopy 02/26/1996 Fecal Occult Blood Test 11/27/2010 11/27/2009 Adult Wellness Visit 2017 DTaP,Tdap,and Td Vaccines (3 - Td or Tdap) 03/10/2020 03/10/2010, 11/27/2009 Colonoscopy 08/15/2020 08/16/2015, 03/10, 04/10/2005 Colorectal Cancer Screening 08/15/2020 COVID-19 Vaccine (3 2022- season) 2023 12/19/2022, 05/16/2020 GFR 06/14/2023 06/13/2022, 04/2019, 08/18/2018, Additional history exists Lipid Panel 08/20/2023 08/19/2018, 09/2018, 02/19/2017, Additional history exists Influenza Vaccine (FLU shot) (#1) 2023 11/24/2019, 04/05/2019, 02/06/2007, Additional history exists Depression Screening 10/22/2024 10/23/2023 O2 ASSESSMENT COMPLETED IN PAST YEAR FOR COPD 10/22/2024 10/23/2023 AAA Screening Completed 10/29/2014, 07/08, 06/30/2007 RETIRED - COLONOSCOPY-EVERY 5 YRS AGES 18-100 Discontinued 08/16/2015, 03/26/2010, 04/10/2005 Pneumococcal Vaccine: 65+ Years Completed 08/28/2017, 05/29/2016, 03/10/2013, Additional history exists Lung Cancer Screening Completed 03/29/2019 , 03/03/2019, 03/27/2017 Zoster Vaccines Completed 02/14/2022, 12/09, 08/10/2013 HPV (Gardasil) Vaccine Aged Out No lo nger eligible based on patient's age to complete this topic Hepatitis B Vaccine Aged Out No longe r eligible based on patient's age to complete this topic MENINGOCOCCAL (MENACTRA/MENVEO) Aged Out No longer eligible based on patient's age to complete this topic documented as of this encounter Medical Devices Not on filedocumented as of this encounter Visit Diagnoses Diagnosis Need for tetanus, diphtheria, and acellular pertussis (Tdap) vaccine- Primary Need for zmolnujhzm-qozkdcb-ksojknwbk (Tdap) vaccine Need for prophylactic vaccination with combined cvvrvukmsy-ntugeme-bagmbmtmq (DTP) vaccine HTN, goal below 140/90 Unspecified essential hypertension COPD, mild (HCC) Chronic airway obstruction, not elsewhere classified Screening for cardiovascular condition Screening for other and unspecified cardiovascular conditions Coronary atherosclerosis due to calcified coronary lesion (CODE) Hyperlipidemia, unspecified hyperlipidemia type COPD, moderate (HCC) Chronic airway obstruction, not elsewhere classified LUCINDA (obstructive sleep apnea) Obstructive sleep apnea (adult) (pediatric) documented in this encounter Care Teams Ordnance Mechanic Relationship Specialty Start Date End Date Alfa Bullard MD [address] [place] [address] PCP - General Family Medicine 11/24/19 documented as of this encounter"
--- OUTSIDE RECORDS SUMMARY | 2023-12-30 00:34 | External Medical Summary | Summary of Care ---
Author Name Unknown Organization [facility] Address [address] [place] [address] Phone [phone] Care Team Providers Care Air Brakes Inspector Name Role Phone Alfa Bullard MD Primary Care Provider [phone] Reason for Visit * Reason Onset Date Comments Advice 09/01/2023 Encounter Details Date Type Department Care Team (Late st Contact Info) Description 09/01/2023 Telephone [facility] [address] [place] [address] Alfa Bullard MD [address] [place] [address] Advice Allergies Active Allergy Reactions Criticality Noted Date Comments Bee Venom 08/19/2016 Other - Drugs 02/08/2005 temporary dental cement--swelling documented as of this encounter (statuses as of 09/02/2023) Medications Medication Sig Dispensed Refills Start Date [...] as of this encounter (statuses as of 09/02/2023) Active Problems Problem Noted Date Diagnosed Date HTN, goal below 140/90 05/30/2023 Mixed hyperlipidemia 03/11/2019 Pulmonary nodules 03/11/2019 Primary osteoarthritis of both knees 03/13/2018 Thoracic ascending aortic aneurysm 03/13/2018 COPD, mild 07/13/2016 Tobacco use disorder 02/06/2007 Hammer toe of right foot 12/24/2005 documented as of this encounter (statuses as of 09/02/2023) Resolved Problems Problem Noted Date Diagnosed Date [...] as of this encounter (statuses as of 09/02/2023) Immunizations Name Administration Dates Next Due Pneumococcal [...] encounter Miscellaneous Notes * Telephone Encounter - Alfa Bullard MD [...] him to fly? He planning trip from [place] to [place]. Please advise. * Telephone Encounter - Patti Baer OSA - 09/01/2023 9:53 AM EDT Patient is concerned if he is able to fly having an Aortic Aneurysm. documented in this encounter Plan of Treatment Upcoming Encounters Date Type Department Care Team (Late st Contact Info) Description 10/20/2023 2:00 PM EDT Office Visit [facility] [address] [place] [address] Alfa Bullard MD [address] [place] [address] Health Maintenance Due Date Last Done Comments DISCUSS TOBACCO CESSATION (REFER TO SMARTSET #3780) 1950 Albumin/Creatinine Ratio 1969 Alpha-1 Antitrypsin 1969 Cologuard 02/26/1996 Sigmoidoscopy 02/26/1996 Fecal Occult Blood Test 11/27/2010 11/27/2009 DTaP,Tdap,and Td Vaccines (3 - Td or Tdap) 03/10/2020 03/10/2010, 11/27/2009 Colonoscopy 08/15/2020 08/16/2015, 03/10, 04/10/2005 Colorectal Cancer Screening 08/15/2020 Depression Screening 11/23/2020 11/24/2019 COVID-19 Vaccine ( season) 2023 12/19/2022, 05/16/2020 GFR 06/14/2023 06/13/2022, [...] filedocumented as of this encounter Care Teams Air Brakes Inspector Relationship Specialty Start Date End Date Alfa Bullard MD [address] [place] [facility] [place] [address] PCP - General Family Medicine 11/24/19 documented as of this encounter
[2023-12-30] MEDS: Patient's ALLERGY Info needs ENTERED STA (01:32)
[2023-12-30] MEDS ORDERED: Nursing to Pharmacy Communication SCH (01:45)
[2023-12-30] MEDS: HEPARIN SOD 5,000 UNIT/0.5 ML VIAL SQ SCH (03:49)
[2023-12-30] MEDS: GABAPENTIN 400 MG CAP PO SCH (05:25)
[2023-12-30 06:27] LABS: Hematocrit (blood only) 47.7 % (42.0-52.0); Hemoglobin 16.3 g/dl (14.0-18.0); Mean Corpuscular Hgb Conc 34.2 g/dL (32.0-36.0); Mean Corpuscular Volume 96.6 fL (80.0-100.0); Mean Platelet Volume 10.8 fL (9.4-12.4); Platelet Count 231 K/uL (130-400); RDW Coefficient of Variation 11.9 % (11.5-14.5); RDW Standard Deviation 42.4 fL (36.4-46.3); Red Blood Count 4.94 M/uL (4.70-6.10); White Blood Count 7.65 K/ul (4.8-10.8)
[2023-12-30 06:51] LABS: BUN Creatinine Ratio 11.3 (10-20); Calcium 8.7 mg/dl (8.6-10.3); Creatinine Clr Calc Pharmacy 105.4 ml/min; Potassium 4.1 mmol/L (3.5-5.1)
[2023-12-30 07:20] VITALS: RESP 17
[2023-12-30] MEDS: FOLIC ACID 1 MG TAB PO SCH (08:13)
[2023-12-30] MEDS: amLODIPine BESYLATE 5 MG TAB PO SCH (08:13)
[2023-12-30] MEDS: ROSUVASTATIN CALCIUM 20 MG TAB PO SCH (08:14)
[2023-12-30] MEDS: FLUTICASONE/VILANTEROL 100/25MCG 14 PUFFS/INHALER INH SCH (08:14)
[2023-12-30] MEDS: THIAMINE HCL 100 MG TAB PO SCH (08:14)
[2023-12-30] MEDS ORDERED: amLODIPine BESYLATE 5 MG TAB PO SCH (09:00)
[2023-12-30 11:03] VITALS: TEMP 97.5
--- NOTE | 2023-12-30 11:03 | Cardiology Consultation ---
Date of Consultation December 30, 2023 Assessment & Plan (1) Epigastric pain: (2) Chest pain at rest: (3) Thoracic aortic atherosclerosis: (4) HTN, goal below 130/80: (5) Dyslipidemia, goal LDL below 70: (6) Tobacco abuse: (7) Alcohol abuse: (8) Thoracic ascending aortic aneurysm: Plan Complex 73-year-old male admitted with resting epigastric discomfort. EKG without acute change. High-sensitivity troponin negative. Resting echocardiography with preserved LV systolic function, without wall motion abnormality. Chest x-ray without acute cardiopulmonary process. Telemetry benign. History is most suggestive of GI etiology though patient has multiple cardiac risk factors and notes reduced exercise tolerance. Options of management discussed. Dobutamine stress echocardiography ordered. Possible need for further evaluation including coronary angiography noted. Continue ASA and statin. Trial Maalox. Add PPI. Further recommendations to come. Supervising Physician Co-Signing Physician Notes Patient was seen and personally examined. Full assessment and plan by advanced provider as outlined above. Care and management discussed and personally endorsed 73-year-old male with multiple cardiovascular risk factors including age, gender, hypertension, chronic tobacco use, hyperlipidemia, known vascular disease with dilated ascending aorta presents with symptoms with atypical features. Indigestion nausea type complaint of chest pressure mid abdomen. Initial cardiac enzymes negative and repeat EKG during symptoms negative for ischemia. Dobutamine stress echocardiogram ordered for today with low threshold for further progression and imaging if abnormal. History of Present Illness Reason for Consultation: Atypical chest pain, relieved by nitro Requesting Physician: Dr. Nita Pickens MD Attending Physician: Dr. Nita Pickens MD History of Present Illness Mr. Otis Morton is a 73-year-old male who presented to [facility] ER with chest pressure/pain associated with difficulty breathing. Patient notes driving in the car, headed home, following behind yesterday afternoon and needing to pull the car over due to significant discomfort in the epigastric area. Patient notes having had a similar episode a week or so ago upon awakening. Shortly thereafter the first episode he was evaluated by the [facility] [facility] for his annual physical examination. EKG at that time raised concern for possible prior myocardial infarction for which nuclear stress testing is being arranged. Patient notes that he used to be very active hunting and fishing. Unfortunately his slow down a lot recently, becoming out of breath really quick, especially with trying to ambulate a flight of stairs. No overt activity related chest pain. No palpitations. No resting shortness of breath. Chronic stable cough. No orthopnea, PND, or peripheral edema. No dizziness, near syncope, or syncope. No recent colds, subjective fevers, or shaking chills. EKG on presentation was technically limited, revealing normal sinus rhythm at [address] segment change. High-sensitivity troponin negative x 2 at 5.1 then 5.1. Chest x-ray notable for cardiomegaly with atherosclerotic calcifications in the thoracic aorta, chronic interstitial thickening, scattered calcified granulomas; no acute cardiopulmonary abnormality observed. Resting echocardiography on December 30, 2023 demonstrated the following: Normal size LV. Normal LV wall motion. Moderate concentric LVH. Basal septum thickened and angulated consistent with sigmoid septum. LVEF 55 to 60%. Grade 1 diastolic dysfunction. Mild aortic valve sclerosis without significant stenosis. Moderate aortic root dilatation. Continuous telemetry monitoring revealed sinus throughout with heart rates predominantly in the 60s and 70s. Past Medical and Surgical History Ascending thoracic aortic aneurysm, 4.6 cm via March [address] through the [place] Chart history of central retinal artery occlusion Hypertension Dyslipidemia Chronic tobacco abuse, 2+ packs per day COPD Untreated obstructive sleep apnea Chronic alcohol use Migraine headaches Tonsillectomy as a child Hernia surgery Gallbladder surgery Colonoscopy with polypectomy Family History: Mother with an unknown cancer, age 94. Father with leukemia at the age of 65. 2 siblings, sisters, 1 with? CAD Social History: Smoker, 2+ packs per day since the age of 17. Alcohol: Sixpack a day along with 1-2 shots of whiskey 3 days/week. Occasional marijuana. Vapes. to his second . 1 daughter. 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 Allergies Allergy/AdvReac Type Severity Reaction Status Date / Time tree and shrub pollen Allergy Difficulty Verified 12/29/23 21:21 Breathing bee pollen AdvReac Redness of Verified 12/29/23 21:21 Skin Home Medications Medication Instructions Recorded Confirmed Type None (Patient States No Home Meds) ##0 12/21/09 History albuterol 90 mcg/actuation aerosol 108 mcg inhalation Q4H PRN sob 12/29/23 12/29/23 History inhaler amlodipine 5 mg tablet 5 mg PO DAILY 12/29/23 12/29/23 History cholestyramine (with sugar) 4 gram 4 g PO DAILY PRN cholesterol 12/29/23 12/29/23 History powder for susp in a packet (Questran) fluticasone furoate 100 1 inh inhalation DAILY 12/29/23 12/29/23 History mcg-vilanterol 25 mcg/dose inhalation powder folic acid 1 mg tablet 1 mg PO DAILY 12/29/23 12/29/23 History mecobalamin (vitamin B12) 1,000 1,000 mcg PO DAILY 12/29/23 12/29/23 History mcg chewable tablet (B12 Active) rosuvastatin 40 mg PO DAILY 12/29/23 12/29/23 History Patient History Surgical History No pertinent past surgical history Family History Other Coronary heart disease Social History Smoking Status: Current every day smoker Cigarettes Per Day: 50; Second Hand Exposure: No; Do You Dip or Chew Tobacco: No; Tobacco Cessation Education Requested by Patient: Yes Hx Alcohol Use: Yes Alcohol type: beer Alcohol type Comment: up to 6 beers almost every daily Hx Substance Use: No Preferred Language: Amharic Communication Ability: Effective Digital Marketing Strategist Required: No Beliefs That Will Affect Care: None Current Living Situation: Spouse Feels Safe at Home: Yes Safety Concerns: Feels Safe At This Time Assistive Devices: Denture - Upper, Denture - Lower and Glasses Review of Systems Review of Systems: Complete Review of Systems: Constitutional: No fevers, chills, or night sweats. HEENT: Glasses. Left cataract extraction. History of retinal artery occlusion. No glaucoma. Pulmonary: COPD. Untreated sleep apnea. No history of PE. Cardiac: See above. GI/Abd: Dysphagia. GERD. Diarrhea post cholecystectomy. Prior tarry stools leading to colonoscopy and polypectomy. No kidney problems. No liver problems. No history of pancreatic issues. Vascular: Ascending aortic aneurysm. No AAA. No lower extremity claudication/PAD. Hematologic: No coagulation disorder, anemia, or abnormal bleeding. Musculoskeletal: Arthritis. Skin: No rash. Neurologic: No history of seizure disorder. Male : BPH. Nocturia Endocrine: Denies history of diabetes mellitus or thyroid trouble. Complete Review of Systems is as stated above, negative, or noncontributory Physical Exam Physical Exam: General: A&Ox3. NAD. HENT: Normocephalic. Atraumatic. Eyes: PER. Conjunctiva pink, sclera clear. Neck: No carotid bruits. No JVD. No HJR. Heart: RRR. Grade I-II systolic ejection murmur. No diastolic murmur. Lungs: Diminished. Decreased. Clear to auscultation. Abdomen: +BS. Soft. Nontender. No masses or organomegaly. Extremities: No clubbing, cyanosis, or edema. Limited neurological examination is without focal deficits. Pulses: Posterior tibial=2/4. Results & Data Vital Signs (Past 12 Hours) Vital Signs Temp Pulse Pulse Resp BP BP Pulse Ox 12/30/23 07:18 36.3 C L 68 17 122/69 91 12/30/23 07:04 74 12/30/23 05:58 12/30/23 03:23 36.4 C L 75 18 121/73 92 Pulse Ox O2 Del Method O2 Del Method 12/30/23 07:18 Room Air 12/30/23 07:04 12/30/23 05:58 92 Room Air 12/30/23 03:23 Room Air Laboratory Results Cardiac Enzymes 12/29/23 12/29/23 Range/Units 16:11 20:40 AST 18 (13-39) U/L Troponin I High Sens 5.1 5.1 (0-20) pg/ml Coagulation 12/29/23 Range/Units 16:11 PT 10.9 (9.0-12.0) Seconds APTT 27 (21-31) Seconds Lipids 12/29/23 Range/Units 16:11 Triglycerides 101 (0-150) mg/dl Cholesterol 114 (0-200) mg/dl HDL Cholesterol 49 mg/dl Cholesterol/HDL Ratio 2.3 (0-5) CBC 12/29/23 12/30/23 Range/Units 16:11 05:32 WBC 7.86 7.65 (4.8-10.8) K/ul RBC 5.09 4.94 (4.70-6.10) M/uL Hgb 17.2 16.3 (14.0-18.0) g/dl Hct 48.6 47.7 (42.0-52.0) % Plt Count 262 231 (130-400) K/uL Neut # (Auto) 3.29 (1.40-6.50) K/uL Lymph # (Auto) 3.24 (1.20-3.40) K/uL Jessamine # (Auto) 0.86 H (0.11-0.59) K/uL Eos # (Auto) 0.29 (0.00-0.50) K/uL Baso # (Auto) 0.09 (0.00-0.20) K/uL Comprehensive Metabolic Panel 12/29/23 12/30/23 Range/Units 16:11 05:32 Sodium 135 L 137 (136-145) mmol/L Potassium 3.9 4.1 (3.5-5.1) mmol/L Chloride 100 103 (98-107) mmol/L Carbon Dioxide 29 29 (21-32) mmol/L BUN 7 9 (6-23) mg/dl Creatinine 0.83 0.80 (0.6-1.4) mg/dl Glucose 94 89 (70-99(Fasting)) mg/dl Calcium 9.5 8.7 (8.6-10.3) mg/dl AST 18 (13-39) U/L ALT 13 (7-52) U/L Alkaline Phosphatase 63 (34-104) U/L Total Protein 7.3 (6.0-8.3) gm/dl Albumin 4.4 (3.4-5.0) gm/dl Intake and Output 12/29/23 12/30/23 12/30/23 22:59 06:59 14:59 Intake Total 200 / 200 Balance 200 / 200 Intake: Oral 200 / 200 Other: # Unmeasured Voids 1 Weight 100.4 kg 99.836 kg Weight Measurement Method Chair Scale Built in [facility]
[2023-12-30] MEDS: ALUMINUM/MAGNESIUM SUSP 30 ML UDC PO PRN (12:15)
--- NOTE | 2023-12-30 13:44 | Communication Note ---
Date of Service: December 30, 2023 Patient with multiple cardiovascular risk factors admitted with chest pain. Cardiac enzymes and EKGs without acute ischemia. Patient referred for dobutamine stress echocardiogram Stress echocardiogram with normal resting and stress wall motion without evidence of stress-induced ischemia at adequate heart rate. No exacerbation of cardiac symptoms. Impression: No evidence of acute coronary syndrome or stress-induced myocardial ischemia and patient with multiple cardiovascular risk factors. Known ascending aortic aneurysm Recommendation: Treat heartburn symptoms with proton pump inhibitor Close clinical follow-up with primary care provider at [facility] Patient to promptly return with any severe chest discomfort Consider cardiology follow-up as outpatient Urged tobacco cessation
[2023-12-30] MEDS: ATROPINE SULFATE 0.1 MG/ML 10ML SYR IV ONE (14:04)
[2023-12-30] MEDS: DOBUTamine HCL 12.5 MG/ML 20 ML VIAL IV ONE (14:05)
[2023-12-30] MEDS: METOPROLOL TARTRATE 1 MG/ML VIAL IV ONE (14:05)
[2023-12-30] MEDS: PANTOprazole 40 MG TAB PO SCH (14:32)
[2023-12-30 15:12] VITALS: PULSE 69; O2SAT 93
--- NOTE | 2023-12-30 15:19 | Discharge Summary ---
Discharge Summary Date of Service December 30, 2023 Principal Dx & Hospital Course #1 = Principal Diagnosis (1) Chest pain, rule out acute myocardial infarction: (2) COPD (chronic obstructive pulmonary disease): (3) History of AAA (abdominal aortic aneurysm) repair: (4) Tobacco use: Plan Mr. Pruett is a 73-year-old male who presented to the ED today after he started to have crushing anterior chest pain that resulted in him having to pulley worker his car. He reports that this pain is the second time that he has experienced this with the first 1 being last week. [facility] was evaluated [facility] and is to have a nuclear stress test and echo scheduled which has not been done yet. Past medical history includes: HLD, HTN, history of thoracic AAA COPD (no CPAP or supplemental home O2), alcohol use (up to a 6 pack of beer daily), tobacco use (2.5 ppd), His AAA measuring 4.5 cm per patient that is monitored as an outpatient every 6 to 12 months with the last scan being approximately 1 year ago. Patient receives most care through the [facility], but also sees Dr. Bullard. ECG in ED normal sinus rhythm. He states that when he went for his yearly exam with the [facility] they did an EKG and noted that he may have had a prior TN for which an outpatient stress test and echocardiogram was to be performed which has not been scheduled yet. ED provider gave aspirin and nitro with full resolution of chest pain. Atypical chest pain rule out TN Epigastric Pain ECG NSR Troponin negative x2 Echo with EF of 55 to 60%, grade 1 diastolic dysfunction, moderate left ventricular hypertrophy, findings consistent with sigmoid septum noted, mild aortic sclerosis without significant aortic valve stenosis, moderate aortic root dilatation ASA plus nitro given in ED with full resolution of his chest pain TSH normal cardiology was consulted and recommended dobutamine stress echo. Dobutamine stress echo noted normal EKG response and no cardiac symptoms. Cardiology recommended the following upon discharge: "Treat heartburn symptoms with proton pump inhibitor Close clinical follow-up with primary care provider at [facility] Patient to promptly return with any severe chest discomfort Consider cardiology follow-up as outpatient Urged tobacco cessation" Patient discharged with pantoprazole 40 mg daily. Consider abdominal ultrasound for follow-up of epigastric pain after discharge. consider cardiology follow-up after discharge. Smoking cessation encouraged. History of thoracic AAA: measuring 4.5 cm [id number] last scan one year ago PCP followup Alcohol use: Drinks up to 6 pack of beer daily Takes Folic Acid at home Thiamine and Folic acid AWSS scale ordered with Gabapentin + Ativan PRN PCP followup COPD: Tobacco use: Smokes 2.5 ppd Smoking cessation recommended PCP follow up HTN: Takes amlodipine; continue HLD: Takes rosuvastatin; continue Notes For Next Care Provider Please consider close cardiology follow-up after discharge Continue to treat and further evaluate and manage reflux symptoms Please encourage tobacco cessation Medication Changes From Visit pantoprazole 40 mg daily Thiamine 100 mg daily Admission HPI Per Admitting Provider Mr. Pruett is a 73-year-old male who presented to the ED today after he started to have Crushing anterior chest pain that resulted in him having to pulley worker his car. He reports that this pain is the second time that he has experienced this with the first 1 being last week. He was evaluated [facility] and is to have a nuclear stress test and echo scheduled which has not been done yet. Past medical history includes: HLD, HTN, history of thoracic AAA COPD (no CPAP or supplemental home O2), alcohol use (up to a 6 pack of beer daily), tobacco use (2.5 ppd), His AAA measuring 4.5 cm per patient that is monitored as an outpatient every 6 to 12 months with the last scan being approximately 1 year ago.Notes that he has a cyst in his throat that he is following up with ENT to have a biopsy with on January 21 2024. In the ED no leukocytosis, troponin negative, LFTs negative, otherwise electrolytes unremarkable. CXR reveals cardiomegaly without acute cardiopulmonary disease process. Patient receives most care through [facility], but also sees Dr. Bullard. ECG in ED normal sinus rhythm. He states that when he went for his yearly exam with the [facility] they did an EKG and noted that he may have had a prior AMI for which an outpatient stress test and echocardiogram was to be performed which has not been scheduled yet. Normotensive and not hypoxic in the ED. ED provider gave aspirin and nitro with full resolution of chest pain. Currently patient denies headache, visual or auditory changes, chest pain, shortness of breath, nausea, vomiting, diarrhea, abdominal pain or tenderness, hematochezia or dysuria, recent falls or trauma. Currently, patient sitting in his hospital bed in no apparent distress without chest pain. He states that he does have some intermittent LE swell, but he also takes Amlodipine. No LE swelling today. Patient will be admitted for further evaluation of management of his chest pain. Please see A/P for further details. Admission Exam Per Admitting Provider Neuro: AAOx4, PERRLA, no aphagia, memory changes, CNII-XII grossly intact HEENT: head normocephalic, moist mucus membranes CV: S1/S2, (-) M/G/R, (-) edema, cap refill < 3 seconds Resp: Lungs CTA in all rahman. On RA GI: Abdomen S/NT/ND, Ax4 bowel sounds, (-) CVA tenderness Musculoskeletal: 5/5 B/L UE strength, 5/5 B/L LE strength. No gait disturbance Skin: (-) rashes , (-) erythema. Psych: euthymic mood Discharge Exam General: Alert, oriented. No acute distress Skin: No noted rashes or bruises Psych: Appropriate mood and affect HEENT: NC/AT Chest: Nontender to palpation. CV: RRR Resp: Breath sounds clear bilaterally, no increased effort of breathing Abdomen:Soft, nontender Extremities: No edema in lower extremities bilaterally. Updated Medication List Medication Instructions Recorded Confirmed Type albuterol 90 mcg/actuation aerosol 108 mcg inhalation Q4H PRN sob 12/29/23 12/29/23 History inhaler amlodipine 5 mg tablet 5 mg PO DAILY 12/29/23 12/29/23 History cholestyramine (with sugar) 4 gram 4 g PO DAILY PRN cholesterol 12/29/23 12/29/23 History powder for susp in a packet (Questran) fluticasone furoate 100 1 inh inhalation DAILY 12/29/23 12/29/23 History mcg-vilanterol 25 mcg/dose inhalation powder folic acid 1 mg tablet 1 mg PO DAILY 12/29/23 12/29/23 History rosuvastatin 40 mg PO DAILY 12/29/23 12/29/23 History pantoprazole 40 mg tablet,delayed 40 mg PO QAM #30 tabs 12/30/23 Rx release thiamine HCl (vitamin B1) 100 mg 100 mg PO QAM #30 tabs 12/30/23 Rx tablet Hospital Stay Data Consultations 12/29/23 19:30 ED Decision to Admit Stat 12/30/23 10:08 Consult Cardiology Routine Diagnostic Imagining Performed Chest X-Ray 12/29/23 16:05 SINGLE VIEW CHEST CLINICAL HISTORY: Atypical chest pain FINDINGS: 2 AP, portable, upright chest radiographs are compared to study dated 12/21/2009. The examination is degraded by portable technique and apical lordotic positioning. The heart is enlarged noting atherosclerotic calcification of the thoracic aorta. The pulmonary vasculature is noncongested. Chronic inter stitial thickening is similar to previous. There are scattered calcified granulomas. No airspace consolidation or large pleural effusion is identified. No pneumothorax is seen. The skeletal structures are osteopenic. The bony thorax is grossly intact. IMPRESSION: Cardiomegaly with no acute cardiopulmonary abnormality identified. ACT 112: Negative or not required by law. Electronically signed by: Baudilio Soni M.D. 12/29/2023 6:06 PM Pending Results Patient Have Any Pending Studies at Discharge: No Discharge Instructions Given to Patient (Per Discharging Provider) Otis, You were admitted and evaluated further for chest pain. You was seen by the straight knife cutter machine and had a stress test done which did not show any cardiac abnormalities. They recommend that you continue with the pantoprazole started as it is very possible that your symptoms are related to heartburn. They also recommend that you stop smoking. Please keep close follow up with your primary care provider and/or prior straight knife cutter machine after discharge. Please do not hesitate to come back to the emergency room if your symptoms worsen or return. It was a pleasure taking care of you while you were here. Total Time Total Time Spent Total Time Spent (In Minutes): 65
[2023-12-30 16:45] VITALS: BP 121/73
[2023-12-30] MEDS ORDERED: GABAPENTIN 400 MG CAP PO SCH (22:00)
[2024-01-01] MEDS ORDERED: GABAPENTIN 400 MG CAP PO SCH
--- NOTE | 2024-01-01 05:47 | Electrocardiogram Report ---
Test Reason : Blood Pressure : */* mmHG Vent. Rate : 83 BPM Atrial Rate : 83 BPM P-R Int : 194 ms QRS Dur : 90 ms QT Int : 368 ms P-R-T Axes : 69 -28 68 degrees QTcB Int : 432 ms Poor data quality, interpretation may be adversely affected Normal sinus rhythm Normal ECG No previous ECGs available Confirmed by Gunner Landers ([id number]) on 01/01/2024 5:46:58 AM Referred By: REFERRED SELF Confirmed By: Gunner Landers
[2024-01-02] MEDS ORDERED: GABAPENTIN 400 MG CAP PO SCH (12:00)
== END 2023-12-30 17:15 | disposition home or self-care (01) | DRG 313 ==
LOC: ED 15:57 → SUATTDRO 19:02 → 2S 19:02

== ENCOUNTER 2025-01-06 13:47 | Inpatient (IN) ==
[2025-01-06 14:24] LABS: Hematocrit (blood only) 53.6 % (42.0-52.0); Hemoglobin 18.7 g/dl (14.0-18.0); Immature Granulocytes # (auto) 0.04 K/uL (0.01-0.20); Immature Granulocytes % (auto) 0.7 %; Mean Corpuscular Hemoglobin 34.1 pg (25.0-34.0); Mean Corpuscular Volume 97.6 fL (80.0-100.0); Platelet Count 185 K/uL (130-400); RDW Standard Deviation 44.4 fL (36.4-46.3); Red Blood Count 5.49 M/uL (4.70-6.10); White Blood Count 5.53 K/ul (4.8-10.8)
[2025-01-06 14:40] LABS: Alanine Aminotransferase 16.0 U/L (7-52); Albumin Globulin Ratio 1.2 (0.9-2); Albumin Level 4.1 gm/dl (3.4-5.0); Alkaline Phosphatase 72.0 U/L (34-104); Anion Gap 8.0 (3-11); Bilirubin,Total 0.7 mg/dl (0.2-1.0); Blood Urea Nitrogen 9.0 mg/dl (6-23); Calcium 9.3 mg/dl (8.6-10.3); Carbon Dioxide 29.0 mmol/L (21-32); Chloride 100.0 mmol/L (98-107); Creatinine Clr Calc Pharmacy 68.9 ml/min; Globulin 3.4 gm/dl (2.5-4.0); Glucose 145.0 mg/dl (70-99(Fasting)); Potassium 3.6 mmol/L (3.5-5.1); Sodium 137.0 mmol/L (136-145); Total Protein 7.5 gm/dl (6.0-8.3)
[2025-01-06 14:51] LABS: INR 1.1 (0.9-1.1); Partial Thromboplastin Time 30 Seconds (21-31); Prothrombin Time 11.4 Seconds (9.0-12.0)
--- NOTE | 2025-01-06 15:59 | Electrocardiogram Report ---
Test Reason : Blood Pressure : */* mmHG Vent. Rate : 101 BPM Atrial Rate : 101 BPM P-R Int : 196 ms QRS Dur : 100 ms QT Int : 328 ms P-R-T Axes : 67 -48 71 degrees QTcB Int : 425 ms Sinus tachycardia Left anterior fascicular block Incomplete right bundle branch block Abnormal ECG When compared with ECG of 30-Dec-2023 11:11, PA interval has decreased Left anterior fascicular block is now Present Confirmed by Jorge Cheatham ([id number]) on 01/06/2025 3:59:29 PM Referred By: Confirmed By: Jorge Cheatham
--- NOTE | 2025-01-06 16:00 | Emergency Department Note ---
Impression & Plan Acute hypoxic respiratory failure, Acute exacerbation of chronic obstructive pulmonary disease, Erythrocytosis ED Provider Note NAME: SRAVANTHI KOCH AGE: 74 SEX: M : 1950 ARRIVES VIA: Walk-In INFORMANT: Patient, ED PROVIDER(S): Servando Leslie DO CHIEF COMPLAINT: SOB HPI: This is a 74-year-old male with the PMHx of COPD, tobacco use disorder, AAA, CAD, hypertension, dyslipidemia and alcohol use disorder presenting to [facility] for further evaluation of shortness of breath. Patient is accompanied by his who provide additional history. Current illness has been ongoing for the last 2 to 3 weeks. He states he has progressively worsened. He states his cough is now productive of yellow sputum. Reports more shortness of breath at rest. Patient has worsening exertional dyspnea as well. Patient reports some lower extremity swelling. He states this is intermittent. Does not seem worse than usual. He was at urgent care today and had a chest x-ray. He received 1 breathing treatment. Sent to the ED for further evaluation. He reports that his chest x-ray was reported as no pneumonia. They deny fever or chills. Denies chest pain or palpitations. They deny abdominal pain, nausea and vomiting. No urinary complaints. No recent changes in bowel movements. Patient denies recent changes in medications or OTC supplements. Patient offers no other complaints, today. ADDITIONAL HISTORY OBTAINED: Per HPI Chronic Medical/Social Conditions Affecting Care: Per HPI PAST MEDICAL HISTORY: See Below PAST SURGICAL HISTORY: See Below FAMILY HISTORY: See Below SOCIAL HISTORY: See Below HOME MEDICATIONS: See Below ALLERGIES: See Below VITALS: See Below PHYSICAL EXAMINATION: GENERAL: Sitting up in bed, alert, well appearing, well nourished, no distress, non-toxic EYE EXAM: normal conjunctiva. PERRL and EOM's grossly intact. OROPHARYNX: no exudate, no erythema, lips, buccal mucosa, and tongue normal and mucous membranes are moist NECK: supple, no nuchal rigidity, no adenopathy, non-tender LUNGS: Minimal expiratory wheezing. Normal chest wall mechanics HEART: no murmurs, regular rate, regular rhythm ABDOMEN: abdomen soft, non-tender, no masses, no rebound or guarding. BACK: Back is symmetrical on inspection and there is no deformity, no midline tenderness, no CVA tenderness. SKIN: no rashes and no bruising UPPER EXTREMITIES: upper extremities are grossly normal. LOWER EXTREMITIES: minimal lower extremity edema NEURO EXAM: Normal sensorium, GCS 15, normal speech, no gross weakness of arms, no gross weakness of legs. MEDICAL DECISION MAKING: Differential diagnoses includes but not limited to ACS, unstable angina, dysrhythmia, PNA, hypervolemia/pulmonary edema, CHF exacerbation, COPD exacerbation, PE, pneumothorax, pericardial effusion, cardiac tamponade, anxiety/psychogenic, viral URI In summary, this is a 74 year old male who presented with shortness of breath. Differential as above. Nursing notes and pertinent past medical records reviewed. Vital signs reviewed and the patient is hypoxic but otherwise afebrile hemodynamically stable. The patient was placed on low-flow nasal cannula. Patient was titrated to 4 L of low-flow nasal cannula. This is a new oxygen requirement for the patient. History and presentation revealed ongoing issues with dyspnea at rest as well as congestive and productive cough. Symptoms have been worsening over the past 2 to 3 weeks. Long-term diagnosis of COPD. Suspect likely COPD exacerbation but would consider other etiologies including cardiac. Patient supposedly had a chest x-ray at urgent care today. Will touch base with care management to obtain this study. If we are unable to obtain imaging study, patient will benefit from a chest x-ray while in the emergency department. Physical examination revealed some expiratory wheezing and tachypnea. As a result of my initial evaluation, I do feel the patient symptoms are likely explained by COPD exacerbation but not exactly clear with symptoms ongoing for 2-3 weeks. Diagnostics interpreted by me include EKG and cardiac monitoring as listed below: -Cardiac Monitoring: An order was placed for continuous cardiac monitoring. The monitor shows a rate of 80-100s with regular rhythm. -ECG: Sinus tachycardia at a rate of 101 bpm. Left anterior fascicular block present. No significant ST segment changes to suggest STEMI. Intervals otherwise within normal limits. Patient completed laboratory studies and imaging. Results independently interpreted by me are mild erythrocytosis. No leukocytosis. Normal coagulation studies. Normal electrolytes and kidney function besides mild hyperglycemia. Normal LFTs. Troponin is normal.. The patient was managed with low-flow nasal cannula for oxygenation support. Patient. The patient is shortness of breath and new oxygen requirement is not entirely clear. Could be a combination of atypical pneumonia/bronchitis in the setting of COPD. Would also consider cardiac etiologies. Given new oxygen requirement, we will continue respiratory support with low-flow nasal cannula and breathing treatments. Patient may benefit from inpatient management. We attempted ambulatory trial with the patient following hour-long DuoNeb. Patient failed. He had oxygen desaturations down to the low 80s on room air. Unclear etiology of the patient's dyspnea and new oxygen requirement this time, will proceed with CT PE study for further evaluation prior to admission. CT PE was independently interpreted by me as negative for large saddle pulmonary embolism or pneumonia. Further DuoNeb ordered for the patient. Ultimately, the decision was made to admit the patient for acute hypoxic respiratory failure likely related to a COPD exacerbation but difficult to exclude other etiologies including cardiovascular disease. I discussed the case with the hospitalist service via telephone/TigerText and they are agreeable to admit the patient to their services. Based on the above, including the patient's age, coexisting illnesses, labs, imaging, and exam findings the decision to treat as an inpatient. I discussed the patient with the hospitalist team who recommended admission to their services. They received the medications, treatments, interventions indicated above and their condition remained guarded. I discussed my findings with the patient and their family and they understand and agree with the treatment plan. All patient / family questions were answered to their satisfaction. Consults/Care Managements Discussions: Per MDM ER treatment provided: See above Procedures: none Critical Care: I have personally spent 35 minutes of critical care time in direct management of this patient. This includes bedside care, interpretation of diagnostic studies, and testing, discussion with consultants, patient, and family members, and other require inpatient management activities. This 35 minutes is in excess of all separately billable procedures. The chart was completed utilizing [employer] Speech voice recognition software. Grammatical errors, random word insertions, pronoun errors, and incomplete sentences are an occasional consequence of this system due to software limitations, ambient noise, and hardware issues. Any formal questions or concerns about the content, text, or information contained within the body of this dictation should be directly addressed to the physician for clarification. Past Med/Surg History Problem List (Updated 01/07/25 @ 05:16 by Servando Leslie DO) Erythrocytosis (Acute) Acute exacerbation of chronic obstructive pulmonary disease (Acute) Acute hypoxic respiratory failure (Acute) Acute hypoxemic respiratory failure Thoracic ascending aortic aneurysm Alcohol abuse Tobacco abuse Dyslipidemia, goal LDL below 70 HTN, goal below 130/80 Thoracic aortic atherosclerosis Epigastric pain Chest pain at rest Chest pain (Acute) Tobacco use History of AAA (abdominal aortic aneurysm) repair COPD (chronic obstructive pulmonary disease) (Acute) Chest pain, rule out acute myocardial infarction Surgical History No pertinent past surgical history Family History Other Coronary heart disease Social History Smoking Status: Current every day smoker Tobacco Type: Cigarettes Cigarettes Per Day: 50; Second Hand Exposure: No; Do You Dip or Chew Tobacco: No; Hx Alcohol Use: Yes Alcohol type: hard liquor Alcohol type Comment: up to 6 beers almost every daily Hx Substance Use: Yes Last Used Substance Other:: Pt states he rarely uses Marijuana Preferred Language: Yi Communication Ability: Effective Technical Staff Assistant Required: No Beliefs That Will Affect Care: None Current Living Situation: Spouse Feels Safe at Home: Yes Safety Concerns: Feels Safe At This Time Assistive Devices: Glasses Allergies Allergies Allergy/AdvReac Type Severity Reaction Status Date / Time tree and shrub pollen Allergy Severe Difficulty Verified 01/06/25 18:00 Breathing bee pollen Allergy Intermediate EXTRA Verified 01/06/25 18:00 SWELLING AT STING SITES. Home Meds Home Medications Medication Instructions Recorded Confirmed amlodipine 5 mg tablet 5 mg PO DAILY 12/29/23 01/06/25 cholestyramine (with sugar) 4 gram 4 g PO DAILY PRN NEEDED PER 12/29/23 01/06/25 powder for susp in a packet PT'S (Ward) fluticasone furoate 100 1 inh inhalation DAILY 12/29/23 01/06/25 mcg-vilanterol 25 mcg/dose inhalation powder folic acid 1 mg tablet 1 mg PO DAILY 12/29/23 01/06/25 albuterol sulfate 90 mcg/actuation 2 puff inhalation Q4H PRN 01/06/25 01/06/25 aerosol inhaler Shortness Of Breath Or Wheezing rosuvastatin 40 mg tablet 40 mg PO DAILY 01/06/25 01/06/25 Previous Rx's Medication Instructions Recorded pantoprazole 40 mg tablet,delayed 40 mg PO QAM #30 tabs 12/30/23 release Results & Data (ED) Vital Signs Vital Signs - 24 hr 01/06/25 13:51 01/06/25 15:53 01/06/25 15:53 Temperature 37 C Temperature Source Temporal Artery Scan Pulse Rate 99 H Pulse Rate [Apical] 91 H Respiratory Rate 89 H 22 Respiratory Effort / Characteristics Non-Labored Spontaneous Respiratory Depth Normal Blood Pressure 144/78 H Blood Pressure [Left Arm] 140/78 Blood Pressure Mean 100 Blood Pressure Mean [Left Arm] 98 Blood Pressure Position Sitting Blood Pressure Position [Left Arm] Sitting Pulse Oximetry 89 L 92 86 L Oxygen Delivery Method Room Air Nasal Cannula Room Air Nasal Cannula Oxygen Flow Rate 4 0 Sepsis Recent Fever Within 48 Hours No Sepsis New/Unexplained Change in Mental Status No Sepsis Action Taken by Nursing No Action Required Oxygen Flow Rate - Titration 4 Pulse Oximetry Post Tiitration 92 01/06/25 15:53 01/06/25 16:02 01/06/25 19:30 Temperature Temperature Source Pulse Rate 91 H Pulse Rate [Apical] 93 H Respiratory Rate 20 Respiratory Effort / Characteristics Respiratory Depth Blood Pressure Blood Pressure [Left Arm] 145/73 H Blood Pressure Mean Blood Pressure Mean [Left Arm] 97 Blood Pressure Position Blood Pressure Position [Left Arm] Lying Pulse Oximetry 92 93 Oxygen Delivery Method Nasal Cannula Nasal Cannula Oxygen Flow Rate 4 4 Sepsis Recent Fever Within 48 Hours Sepsis New/Unexplained Change in Mental Status Sepsis Action Taken by Nursing Oxygen Flow Rate - Titration Pulse Oximetry Post Tiitration Laboratory Data 01/06/25 14:00 01/06/25 14:00 Lab Results 01/06/25 01/06/25 01/06/25 Range/Units 14:00 16:54 17:30 WBC 5.53 (4.8-10.8) K/ul RBC 5.49 (4.70-6.10) M/uL Hgb 18.7 H (14.0-18.0) g/dl Hct 53.6 H (42.0-52.0) % MCV 97.6 (80.0-100.0) fL MCH 34.1 H (25.0-34.0) pg MCHC 34.9 (32.0-36.0) g/dL RDW Std Deviation 44.4 (36.4-46.3) fL RDW Coeff of Zenaida 12.2 (11.5-14.5) % Plt Count 185 (130-400) K/uL MPV 10.5 (9.4-12.4) fL Immature Gran % (Auto) 0.7 % Neut % (Auto) 69.4 % Lymph % (Auto) 17.7 % [place] % (Auto) 10.1 % Eos % (Auto) 1.4 % Baso % (Auto) 0.7 % Neut # (Auto) 3.83 (1.40-6.50) K/uL Lymph # (Auto) 0.98 L (1.20-3.40) K/uL [place] # (Auto) 0.56 (0.11-0.59) K/uL Eos # (Auto) 0.08 (0.00-0.50) K/uL Baso # (Auto) 0.04 (0.00-0.20) K/uL Immature Gran # (Auto) 0.04 (0.01-0.20) K/uL PT 11.4 (9.0-12.0) Seconds INR 1.1 (0.9-1.1) APTT 30 (21-31) Seconds PTT Ratio 1.1 VBG pH 7.37 (7.36-7.41) VBG pCO2 58 H (38-50) mmHg VBG pO2 49 mmHg VBG HCO3 34 mmol/L VBG O2 Saturation 76.4 % VBG Base Excess 6.4 mEq/L Sodium 137 (136-145) mmol/L Potassium 3.6 (3.5-5.1) mmol/L Chloride 100 (98-107) mmol/L Carbon Dioxide 29 (21-32) mmol/L Anion Gap 8 (3-11) BUN 9 (6-23) mg/dl Creatinine 1.11 (0.6-1.4) mg/dl Est Cr Clr Drug Dosing 68.9 ml/min eGFR 70.12 BUN/Creatinine Ratio 8.1 L (10-20) Glucose 145 H (70-99(Fasting)) mg/dl Calcium 9.3 (8.6-10.3) mg/dl Magnesium 1.9 (1.7-2.4) mg/dl Total Bilirubin 0.7 (0.2-1.0) mg/dl AST 25 (13-39) U/L ALT 16 (7-52) U/L Alkaline Phosphatase 72 (34-104) U/L Troponin I High Sens 5.2 (0-20) pg/ml B-Natriuretic Peptide 8 (0-100) pg/ml Total Protein 7.5 (6.0-8.3) gm/dl Albumin 4.1 (3.4-5.0) gm/dl Globulin 3.4 (2.5-4.0) gm/dl Albumin/Globulin Ratio 1.2 (0.9-2) Adenovirus (PCR) (NotDetected) B. pertussis DNA (PCR) (NotDetected) B.parapertussis DNA PCR (NotDetected) C. pneumoniae DNA (PCR) (NotDetected) Coronavirus OC43 (PCR) (NotDetected) Coronavirus HKU1 (PCR) (NotDetected) Coronavirus 229E (PCR) (NotDetected) SARS-CoV-2 (PCR) (NotDetected) Coronavirus NL63 (PCR) (NotDetected) Human Metapneumovir PCR (NotDetected) Influenza Type A (PCR) (NotDetected) Influenza Type B (PCR) (NotDetected) M. pneumoniae (PCR) (NotDetected) Parainfluenza 1 (PCR) (NotDetected) Parainfluenza 2 (PCR) (NotDetected) Parainfluenza 3 (PCR) (NotDetected) Parainfluenza 4 (PCR) (NotDetected) RSV (PCR) (NotDetected) Entero/Rhino (PCR) (NotDetected) 01/06/25 Range/Units 19:47 WBC (4.8-10.8) K/ul RBC (4.70-6.10) M/uL Hgb (14.0-18.0) g/dl Hct (42.0-52.0) % MCV (80.0-100.0) fL MCH (25.0-34.0) pg MCHC (32.0-36.0) g/dL RDW Std Deviation (36.4-46.3) fL RDW Coeff of Zenaida (11.5-14.5) % Plt Count (130-400) K/uL MPV (9.4-12.4) fL Immature Gran % (Auto) % Neut % (Auto) % Lymph % (Auto) % [place] % (Auto) % Eos % (Auto) % Baso % (Auto) % Neut # (Auto) (1.40-6.50) K/uL Lymph # (Auto) (1.20-3.40) K/uL [place] # (Auto) (0.11-0.59) K/uL Eos # (Auto) (0.00-0.50) K/uL Baso # (Auto) (0.00-0.20) K/uL Immature Gran # (Auto) (0.01-0.20) K/uL PT (9.0-12.0) Seconds INR (0.9-1.1) APTT (21-31) Seconds PTT Ratio VBG pH (7.36-7.41) VBG pCO2 (38-50) mmHg VBG pO2 mmHg VBG HCO3 mmol/L VBG O2 Saturation % VBG Base Excess mEq/L Sodium (136-145) mmol/L Potassium (3.5-5.1) mmol/L Chloride (98-107) mmol/L Carbon Dioxide (21-32) mmol/L Anion Gap (3-11) BUN (6-23) mg/dl Creatinine (0.6-1.4) mg/dl Est Cr Clr Drug Dosing ml/min eGFR BUN/Creatinine Ratio (10-20) Glucose (70-99(Fasting)) mg/dl Calcium (8.6-10.3) mg/dl Magnesium (1.7-2.4) mg/dl Total Bilirubin (0.2-1.0) mg/dl AST (13-39) U/L ALT (7-52) U/L Alkaline Phosphatase (34-104) U/L Troponin I High Sens (0-20) pg/ml B-Natriuretic Peptide (0-100) pg/ml Total Protein (6.0-8.3) gm/dl Albumin (3.4-5.0) gm/dl Globulin (2.5-4.0) gm/dl Albumin/Globulin Ratio (0.9-2) Adenovirus (PCR) Not Detected (NotDetected) B. pertussis DNA (PCR) Not Detected (NotDetected) B.parapertussis DNA PCR Not Detected (NotDetected) C. pneumoniae DNA (PCR) Not Detected (NotDetected) Coronavirus OC43 (PCR) Not Detected (NotDetected) Coronavirus HKU1 (PCR) Not Detected (NotDetected) Coronavirus 229E (PCR) Not Detected (NotDetected) SARS-CoV-2 (PCR) Not Detected (NotDetected) Coronavirus NL63 (PCR) Not Detected (NotDetected) Human Metapneumovir PCR Not Detected (NotDetected) Influenza Type A (PCR) Not Detected (NotDetected) Influenza Type B (PCR) Not Detected (NotDetected) M. pneumoniae (PCR) Not Detected (NotDetected) Parainfluenza 1 (PCR) Not Detected (NotDetected) Parainfluenza 2 (PCR) Not Detected (NotDetected) Parainfluenza 3 (PCR) Not Detected (NotDetected) Parainfluenza 4 (PCR) Not Detected (NotDetected) RSV (PCR) Not Detected (NotDetected) Entero/Rhino (PCR) Not Detected (NotDetected) Administered Medications Amlodipine Besylate (Amlodipine Besylate 5 Mg Tab) 5 mg PO HS BRANDON Stop: 02/05/25 23:29 Last Admin: 01/06/25 23:53 Dose: 5 mg Documented By: ALLISON Folic Acid (Folic Acid 1 Mg Tab) 1 mg PO HS BRANDON Stop: 02/05/25 23:29 Last Admin: 01/06/25 23:53 Dose: 1 mg Documented By: ALLISON Potassium Chloride/Sodium Chloride (Normal Saline W/20 Meq Kcl) 20 meq in 1,000 mls @ 60 mls/hr IV .[id number] ONE Stop: 01/07/25 12:22 Last Admin: 01/06/25 20:54 Dose: 60 mls/hr Documented By: QGV Ipratropium [place] (Ipratropium [place] Neb Soln 0.02% 0.5mg/2.5ml Vial) 0.5 mg INH Q6R BRANDON Stop: 02/06/25 00:59 Last Admin: 01/07/25 01:34 Dose: 0.5 mg Documented By: ERD Levalbuterol HCl (Levalbuterol 1.25 Mg/3 Ml Neb) 1.25 mg NEB Q6R BRANDON Stop: 02/06/25 00:59 Last Admin: 01/07/25 01:34 Dose: 1.25 mg Documented By: GLORIA Pantoprazole Sodium (Pantoprazole 40 Mg Tab) 40 mg PO [facility] Stop: 02/05/25 23:29 Last Admin: 01/06/25 23:53 Dose: 40 mg Documented By: ALLISON Rosuvastatin Calcium (Rosuvastatin Calcium 20 Mg Tab) 40 mg PO [facility] Stop: 02/05/25 23:29 Last Admin: 01/06/25 23:54 Dose: 40 mg Documented By: ALLISON Discontinued Medications Albuterol (Albuterol 0.083% Nebu Soln 3 Ml Vial) 15 mg NEB NOW STA; Protocol Stop: 01/06/25 16:06 Last Admin: 01/06/25 16:09 Dose: 15 mg Documented By: QGV Albuterol (Albut/Ipratrop 3mg/0.5mg Neb 3 Ml Vial) 3 ml NEB NOW STA; Protocol Stop: 01/06/25 19:17 Last Admin: 01/06/25 19:31 Dose: 3 ml Documented By: QGV Doxycycline Hyclate (Doxycycline Hyclate 100 Mg Cap) 100 mg PO NOW STA Stop: 01/06/25 16:05 Last Admin: 01/06/25 16:09 Dose: 100 mg Documented By: QGV Thiamine HCl 100 mg/ Syringe 10 mls @ 2 mls/min IV NOW STA Stop: 01/06/25 20:28 Last Admin: 01/06/25 20:54 Dose: 2 mls/min Documented By: QGV Magnesium Sulfate/Dextrose (Magnesium Sulfate / D5w) 1 gm in 100 mls @ 50 mls/hr IV ONE ONE Stop: 01/06/25 23:00 Last Infusion: 01/06/25 23:35 Dose: Infused Documented By: Admin: 01/06/25 21:35 Dose: 50 mls/hr Documented By: QGV Ioversol (Optiray 320 125ml) 118 ml IV ONCE ONE Stop: 01/06/25 18:39 Last Admin: 01/06/25 18:38 Dose: 118 ml Documented By: TJ Prednisone (Prednisone 50 Mg Tab) 50 mg PO ONCE ONE Stop: 01/06/25 16:05 Last Admin: 01/06/25 16:09 Dose: 50 mg Documented By: QGV Imaging Data Radiologist's Impression: Chest CTA 01/06/25 17:15 CT pulmonary angiogram with IV contrast History: Chest pain COMPARISON: None TECHNIQUE: CT angiography of the chest was performed without IV contrast followed by IV contrast, including 3D post processing CTA image reconstruction. Dose reduction techniques were achieved by using automatic exposure control and/or adjustment of mA and/or kV according to patient size and/or use of iterative reconstruction technique. FINDINGS: Diagnostic quality: Adequate There is no evidence for pulmonary embolism. The heart is not enlarged. There is no pericardial effusion. There are no abnormally enlarged hilar or mediastinal lymph nodes. Small scattered calcified lymph node suggesting old granulomatous disease. The central tracheobronchial tree is clear. Moderate emphysema. Bronchial wall thickening seen throughout the lung bases. Scattered streaky postobstructive atelectasis seen in the medial lower lobes. There is no pleural effusion. Limited visualized upper abdomen. No destructive osseous changes are seen. IMPRESSION: No evidence for pulmonary embolism. Bibasilar bronchitis and postobstructive atelectasis. Emphysema. Electronically signed by Jorge Bae 01-06-2025 7:06 PM Discharge Plan Visit Data Chief Complaint: Referred by Doctor Stated Complaint: SOB, BODY ACHES, SNEEZING ED Provider: Servando Leslie Discharge Problem: Acute hypoxic respiratory failure, Acute exacerbation of chronic obstructive pulmonary disease, Erythrocytosis Patient Disposition: Admitted As Inpatient Condition: Fair Discharge Instructions Interventions: ED Discharge Assessment Last Done: 01/06/25 22:57
[2025-01-06] MEDS: ALBUTEROL 0.083% NEBU SOLN 3 ML VIAL NEB STA (16:09)
[2025-01-06] MEDS: DOXYCYCLINE HYCLATE 100 MG CAP PO STA (16:09)
[2025-01-06 17:10] LABS: Base Excess VBG 6.4 mEq/L; HCO3 VBG 34 mmol/L; Oxygen Saturation VBG 76.4 %; PCO2 VBG 58 mmHg (38-50); PO2 VBG 49 mmHg; pH VBG 7.37 (7.36-7.41)
[2025-01-06] MEDS: OPTIRAY 320 125ml IV ONE (18:38)
--- NOTE | 2025-01-06 19:06 | CT Scan Report ---
CT pulmonary angiogram with IV contrast History: Chest pain COMPARISON: None TECHNIQUE: CT angiography of the chest was performed without IV contrast followed by IV contrast, including 3D post processing CTA image reconstruction. Dose reduction techniques were achieved by using automatic exposure control and/or adjustment of mA and/or kV according to patient size and/or use of iterative reconstruction technique. FINDINGS: Diagnostic quality: Adequate There is no evidence for pulmonary embolism. The heart is not enlarged. There is no pericardial effusion. There are no abnormally enlarged hilar or mediastinal lymph nodes. Small scattered calcified lymph node suggesting old granulomatous disease. The central tracheobronchial tree is clear. Moderate emphysema. Bronchial wall thickening seen throughout the lung bases. Scattered streaky postobstructive atelectasis seen in the medial lower lobes. There is no pleural effusion. Limited visualized upper abdomen. No destructive osseous changes are seen. IMPRESSION: No evidence for pulmonary embolism. Bibasilar bronchitis and postobstructive atelectasis. Emphysema. Electronically signed by Jorge Bae 01-06-2025 7:06 PM
[2025-01-06] MEDS: ALBUT/IPRATROP 3MG/0.5MG NEB 3 ML VIAL NEB STA (19:31)
--- NOTE | 2025-01-06 19:53 | History & Physical Report ---
Date of Service January 06, 2025 Assessment & Plan (1) Acute hypoxemic respiratory failure: Plan: Assessment and plan below following discussion of case with ED provider and reviewing patient history/pertinent normal/abnormal diagnostic test results. Acute hypoxemic, hypercapnic respiratory failure secondary to COPD exacerbation/complicated bronchitis No sepsis for now hx PVD hypertension, slightly elevated hyperlipidemia, on statin Rx alcohol abuse, last drink was yesterday Hyperglycemia rule out DM Polycythemia noted on outpatient blood work as well, likely secondary to chronic lung disease ongoing tobacco abuse Admit to med/tele Supplemental O2 Doxycycline, nebs RTC, prednisone course Pulmonology consulted without improvement IVETH S at risk, DT precautions Check hemoglobin A1c DVT prophylaxis. Lovenox subcu Full code Text document was generated using [employer] voice recognition software. It may contain grammatical or spelling errors. Kindly contact undersigned for clarification of any documentation item in question. History of Present Illness Chief Complaint: Cough, worsening shortness of breath Primary Care Provider: [facility] History obtained from patient and records. Medical history significant for PVD, COPD, pulmonary nodules, hypertension, hyperlipidemia, alcohol abuse, ongoing tobacco abuse. Last confinement December 2023 for epigastric pain attributed to heartburn symptoms. 3 weeks history of junky cough symptoms associated with worsening SOB. No chest pain. Possible sick contacts at home. Denies aspiration. Patient consulted local urgent care center today. O2 sats 87 on room air. Patient given DuoNeb at the clinic. Patient prescribed doxycycline and prednisone course but directed to ER for evaluation. O2 sats 80s upon arrival at the ER. Doxycycline and prednisone administered at the ER. 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 Home Medications Medication Instructions Recorded Confirmed Type amlodipine 5 mg tablet 5 mg PO DAILY 12/29/23 01/06/25 History cholestyramine (with sugar) 4 gram 4 g PO DAILY PRN NEEDED PER 12/29/23 01/06/25 History powder for susp in a packet PT'S (Questran) fluticasone furoate 100 1 inh inhalation DAILY 12/29/23 01/06/25 History mcg-vilanterol 25 mcg/dose inhalation powder folic acid 1 mg tablet 1 mg PO DAILY 12/29/23 01/06/25 History pantoprazole 40 mg tablet,delayed 40 mg PO QAM #30 tabs 12/30/23 01/06/25 Rx release albuterol sulfate 90 mcg/actuation 2 puff inhalation Q4H PRN 01/06/25 01/06/25 History aerosol inhaler Shortness Of Breath Or Wheezing rosuvastatin 40 mg tablet 40 mg PO DAILY 01/06/25 01/06/25 History Past Med/Surg History Problem List (Updated 01/06/25 @ 21:59 by Moe Hammer MD) Acute hypoxemic respiratory failure Thoracic ascending aortic aneurysm Alcohol abuse Tobacco abuse Dyslipidemia, goal LDL below 70 HTN, goal below 130/80 Thoracic aortic atherosclerosis Epigastric pain Chest pain at rest Chest pain (Acute) Tobacco use History of AAA (abdominal aortic aneurysm) repair COPD (chronic obstructive pulmonary disease) (Acute) Chest pain, rule out acute myocardial infarction Surgical History No pertinent past surgical history Family History Other Coronary heart disease Social History Smoking Status: Current every day smoker Tobacco Type: Cigarettes Cigarettes Per Day: 50; Second Hand Exposure: No; Do You Dip or Chew Tobacco: No; Hx Alcohol Use: Yes Alcohol type: beer Alcohol type Comment: up to 6 beers almost every daily Hx Substance Use: No Preferred Language: [place] Communication Ability: Effective Twist Packer Required: No Beliefs That Will Affect Care: None Current Living Situation: Spouse Feels Safe at Home: Yes Assistive Devices: Denture - Upper, Denture - Lower and Glasses Review of Systems Review of Systems: As per HPI, all other systems reviewed and negative Physical Exam Physical Exam: GENERAL: Comfortable, slightly anxious, slightly hard of hearing, no respiratory distress SKIN: Normal color, warm HEENT: [place] palpebral conjunctivae, no ptosis, dry buccal mucosa, nasal cannula in place NECK : Supple, no tenderness CHEST : Decreased breath sounds, occasional expiratory wheezes, no tenderness HEART : RRR, no obvious murmurs ABDOMEN: Some distention, nontender EXTREMITIES : No LE swelling/tenderness, palpable pulses, no other conspicuous deformities noted NEUROLOGIC : Coherent, no facial asymmetry, no other gross focality Results & Data Results & Data Vital Signs (Past 12 Hours) Vital Signs Temp Pulse Pulse Resp BP BP Pulse Ox 01/06/25 16:02 91 H 01/06/25 15:53 92 01/06/25 15:53 86 L 01/06/25 15:53 91 H 22 140/78 92 01/06/25 13:51 37 C 99 H 89 H 144/78 H 89 L O2 Del Method O2 Flow Rate 01/06/25 16:02 01/06/25 15:53 Nasal Cannula 4 01/06/25 15:53 Room Air, Nasal Cannula 0 01/06/25 15:53 Nasal Cannula 4 01/06/25 13:51 Room Air Laboratory Results Laboratory Results WBC 5.53 K/ul (4.8-10.8) 01/06/25 14:00 RBC 5.49 M/uL (4.70-6.10) 01/06/25 14:00 Hgb 18.7 g/dl (14.0-18.0) H 01/06/25 14:00 Hct 53.6 % (42.0-52.0) H 01/06/25 14:00 MCV 97.6 fL (80.0-100.0) 01/06/25 14:00 MCH 34.1 pg (25.0-34.0) H 01/06/25 14:00 MCHC 34.9 g/dL (32.0-36.0) 01/06/25 14:00 RDW Std Deviation 44.4 fL (36.4-46.3) 01/06/25 14:00 RDW Coeff of Zenaida 12.2 % (11.5-14.5) 01/06/25 14:00 Plt Count 185 K/uL (130-400) 01/06/25 14:00 MPV 10.5 fL (9.4-12.4) 01/06/25 14:00 Immature Gran % (Auto) 0.7 % 01/06/25 14:00 Neut % (Auto) 69.4 % 01/06/25 14:00 Lymph % (Auto) 17.7 % 01/06/25 14:00 [place] % (Auto) 10.1 % 01/06/25 14:00 Eos % (Auto) 1.4 % 01/06/25 14:00 Baso % (Auto) 0.7 % 01/06/25 14:00 Neut # (Auto) 3.83 K/uL (1.40-6.50) 01/06/25 14:00 Lymph # (Auto) 0.98 K/uL (1.20-3.40) L 01/06/25 14:00 [place] # (Auto) 0.56 K/uL (0.11-0.59) 01/06/25 14:00 Eos # (Auto) 0.08 K/uL (0.00-0.50) 01/06/25 14:00 Baso # (Auto) 0.04 K/uL (0.00-0.20) 01/06/25 14:00 Immature Gran # (Auto) 0.04 K/uL (0.01-0.20) 01/06/25 14:00 PT 11.4 Seconds (9.0-12.0) 01/06/25 14:00 INR 1.1 (0.9-1.1) 01/06/25 14:00 APTT 30 Seconds (21-31) 01/06/25 14:00 PTT Ratio 1.1 01/06/25 14:00 VBG pH 7.37 (7.36-7.41) 01/06/25 16:54 VBG pCO2 58 mmHg (38-50) H 01/06/25 16:54 VBG pO2 49 mmHg 01/06/25 16:54 VBG HCO3 34 mmol/L 01/06/25 16:54 VBG O2 Saturation 76.4 % 01/06/25 16:54 VBG Base Excess 6.4 mEq/L 01/06/25 16:54 Sodium 137 mmol/L (136-145) 01/06/25 14:00 Potassium 3.6 mmol/L (3.5-5.1) 01/06/25 14:00 Chloride 100 mmol/L (98-107) 01/06/25 14:00 Carbon Dioxide 29 mmol/L (21-32) 01/06/25 14:00 Anion Gap 8 (3-11) 01/06/25 14:00 BUN 9 mg/dl (6-23) 01/06/25 14:00 Creatinine 1.11 mg/dl (0.6-1.4) 01/06/25 14:00 Est Cr Clr Drug Dosing 68.9 ml/min 01/06/25 14:00 eGFR 70.12 01/06/25 14:00 BUN/Creatinine Ratio 8.1 (10-20) L 01/06/25 14:00 Glucose 145 mg/dl (70-99(Fasting)) H 01/06/25 14:00 Calcium 9.3 mg/dl (8.6-10.3) 01/06/25 14:00 Total Bilirubin 0.7 mg/dl (0.2-1.0) 01/06/25 14:00 AST 25 U/L (13-39) 01/06/25 14:00 ALT 16 U/L (7-52) 01/06/25 14:00 Alkaline Phosphatase 72 U/L (34-104) 01/06/25 14:00 Troponin I High Sens 5.2 pg/ml (0-20) 01/06/25 14:00 B-Natriuretic Peptide 8 pg/ml (0-100) 01/06/25 17:30 Total Protein 7.5 gm/dl (6.0-8.3) 01/06/25 14:00 Albumin 4.1 gm/dl (3.4-5.0) 01/06/25 14:00 Globulin 3.4 gm/dl (2.5-4.0) 01/06/25 14:00 Albumin/Globulin Ratio 1.2 (0.9-2) 01/06/25 14:00 Impressions Chest CTA 01/06/25 17:15 CT pulmonary angiogram with IV contrast History: Chest pain COMPARISON: None TECHNIQUE: CT angiography of the chest was performed without IV contrast followed by IV contrast, including 3D post processing CTA image reconstruction. Dose reduction techniques were achieved by using automatic exposure control and/or adjustment of mA and/or kV according to patient size and/or use of iterative reconstruction technique. FINDINGS: Diagnostic quality: Adequate There is no evidence for pulmonary embolism. The heart is not enlarged. There is no pericardial effusion. There are no abnormally enlarged hilar or mediastinal lymph nodes. Small scattered calcified lymph node suggesting old granulomatous disease. The central tracheobronchial tree is clear. Moderate emphysema. Bronchial wall thickening seen throughout the lung bases. Scattered streaky postobstructive atelectasis seen in the medial lower lobes. There is no pleural effusion. Limited visualized upper abdomen. No destructive osseous changes are seen. IMPRESSION: No evidence for pulmonary embolism. Bibasilar bronchitis and postobstructive atelectasis. Emphysema. Electronically signed by Jorge Bae 01-06-2025 7:06 PM Diagnostic Findings EKG as per my interpretation : rate 105, sinus tachycardia, LAD, LAFB, incomplete RBBB, T wave abnormality septal leads
[2025-01-06 20:01] LABS: Magnesium 1.9 mg/dl (1.7-2.4)
[2025-01-06] MEDS ORDERED: PROMETHAZINE 6.25 MG/50.25 ML BAG IV PRN (20:25)
[2025-01-06] MEDS ORDERED: LORazepam Inj 1 MG in SYRINGE 0.5 ML IV PRN (20:25)
[2025-01-06] MEDS ORDERED: ACETAMINOPHEN 325 MG TAB PO PRN (20:25)
[2025-01-06] MEDS: NSS + 20MEQ KCL 20 MEQ/1,000 ML BAG IV ONE (20:54)
[2025-01-06] MEDS: THIAMINE HCL 100 MG in SYRINGE 9 ML IV STA (20:54)
[2025-01-06 21:03] LABS: Chlamydia pneumoniae PCR Not Detected (NotDetected); Coronavirus 229E PCR Not Detected (NotDetected); Coronavirus CoV-2 (COVID19)PCR Not Detected (NotDetected); Coronavirus HKU1 PCR Not Detected (NotDetected); Coronavirus NL63 PCR Not Detected (NotDetected); Coronavirus OC43PCR Not Detected (NotDetected); Human Metapneumovirus PCR Not Detected (NotDetected); Parainfluenza Virus 1 PCR Not Detected (NotDetected); Parainfluenza Virus 2 PCR Not Detected (NotDetected); Parainfluenza Virus 3 PCR Not Detected (NotDetected); Parainfluenza Virus 4 PCR Not Detected (NotDetected); Respiratory Syncytial VirusPCR Not Detected (NotDetected); Rhinovirus/Enterovirus PCR Not Detected (NotDetected)
[2025-01-06] MEDS: MAGNESIUM SULFATE / D5W 1 GM/100 ML BAG IV ONE (21:35)
[2025-01-06] MEDS: FOLIC ACID 1 MG TAB PO SCH (23:53)
[2025-01-06] MEDS: ROSUVASTATIN CALCIUM 20 MG TAB PO SCH (23:54)
[2025-01-07] MEDS: LEVALBUTEROL 1.25 MG/3 ML NEB NEB SCH (01:34)
[2025-01-07] MEDS: IPRATROPIUM BROMIDE NEB SOLN 0.02% 0.5MG/2.5ML VIAL INH SCH (01:34)
[2025-01-07 07:31] LABS: Hemoglobin A1C 5.4 % (4.5-5.6)
[2025-01-07] MEDS ORDERED: ONDANSETRON INJ 2 MG/ML 2 ML VIAL IV PRN (07:50)
[2025-01-07] MEDS ORDERED: ROSUVASTATIN CALCIUM 20 MG TAB PO SCH (09:00)
[2025-01-07] MEDS ORDERED: FOLIC ACID 1 MG TAB PO SCH (09:00)
[2025-01-07] MEDS: MULTIVITAMIN TAB PO SCH (09:03)
[2025-01-07] MEDS: predniSONE 20 MG TAB PO SCH (09:03)
[2025-01-07] MEDS: THIAMINE HCL 100 MG TAB PO SCH (09:04)
[2025-01-07] MEDS: ENOXAPARIN INJ 40 MG/0.4 ML SYR SQ SCH (09:04)
[2025-01-07] MEDS: DOXYCYCLINE HYCLATE 100 MG CAP PO SCH (09:04)
[2025-01-07 11:13] VITALS: RESP 18
[2025-01-07 11:30] VITALS: BP 118/70; TEMP 97.9
[2025-01-07 14:07] VITALS: O2SAT 91
[2025-01-07 16:13] VITALS: PULSE 92
--- NOTE | 2025-01-07 16:37 | Discharge Summary ---
Discharge Summary Date of Service January 07, 2025 Principal Dx & Hospital Course #1 = Principal Diagnosis (1) Acute hypoxemic respiratory failure: Assessment and plan below following discussion of case with ED provider and reviewing patient history/pertinent normal/abnormal diagnostic test results. Acute hypoxemic, hypercapnic respiratory failure secondary to COPD exacerbation/complicated bronchitis No sepsis for now hx PVD hypertension, slightly elevated hyperlipidemia, on statin Rx alcohol abuse, last drink was yesterday Hyperglycemia rule out DM Polycythemia noted on outpatient blood work as well, likely secondary to chronic lung disease ongoing tobacco abuse Admit to med/tele Supplemental O2 Doxycycline, nebs RTC, prednisone course Pulmonology consulted without improvement IVETH S at risk, DT precautions Check hemoglobin A1c DVT prophylaxis. Lovenox subcu Full code Text document was generated using [employer] voice recognition software. It may contain grammatical or spelling errors. Kindly contact undersigned for clarification of any documentation item in question. Notes For Next Care Provider 74 yo male with pmhx of PVD, COPD, pulmonary nodules, hypertension, hyper lipidemia, alcohol abuse, ongoing tobacco abuse who presents for SOB. Found to be saturating at 87% with bronchitis, admitted to medicine. On medicine, started on steroids and abx with improvement. Patient has been declining with oxygen for weeks per patient. 2 step performed, requires oxygen with movement and at rest. Oxygen ordered for at home. ON 01/07/2025 patient medically stable for discharge home with home oxygen. To do: -Incidental Findings: bronchitis, atelectasis [ ] titrate off of oxygen if able [ ] encourage tobacco cessation Medication Changes From Visit -abx for bronchitis, steroids Admission HPI Per Admitting Provider History obtained from patient and records. Medical history significant for PVD, COPD, pulmonary nodules, hypertension, hyperlipidemia, alcohol abuse, ongoing tobacco abuse. Last confinement December 2023 for epigastric pain attributed to heartburn symptoms. 3 weeks history of junky cough symptoms associated with worsening SOB. No chest pain. Possible sick contacts at home. Denies aspiration. Patient consulted local urgent care center today. O2 sats 87 on room air. Patient given DuoNeb at the clinic. Patient prescribed doxycycline and prednisone course but directed to ER for evaluation. O2 sats 80s upon arrival at the ER. Doxycycline and prednisone administered at the ER. 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 External ears normal. No rhinorrhea. Moist mucous membranes. Neck: Supple, full range of motion, no observable masses, No meningeal sign. Lungs: No Respiratory distress. CV: RRR, no edema. Abdomen: Soft, nondistended, No rebound tenderness. MSK: No joint swelling, no redness. Skin: No rashes, petechiae, lesions. Normal color per patient. Neuro: Normal Gait, Grossly intact. Psych: Appropriate for situation. Updated Medication List Medication Instructions Recorded Confirmed Type amlodipine 5 mg tablet 5 mg PO DAILY 12/29/23 01/06/25 History cholestyramine (with sugar) 4 gram 4 g PO DAILY PRN NEEDED PER 12/29/23 01/06/25 History powder for susp in a packet PT'S (Questran) fluticasone furoate 100 1 inh inhalation DAILY 12/29/23 01/06/25 History mcg-vilanterol 25 mcg/dose inhalation powder folic acid 1 mg tablet 1 mg PO DAILY 12/29/23 01/06/25 History pantoprazole 40 mg tablet,delayed 40 mg PO QAM #30 tabs 12/30/23 01/06/25 Rx release albuterol sulfate 90 mcg/actuation 2 puff inhalation Q4H PRN 01/06/25 01/06/25 History aerosol inhaler Shortness Of Breath Or Wheezing rosuvastatin 40 mg tablet 40 mg PO DAILY 01/06/25 01/06/25 History amoxicillin 500 mg-potassium 1 tab PO BID 4 days #8 tabs 01/07/25 Rx clavulanate 125 mg tablet (Augmentin) doxycycline hyclate 100 mg capsule 100 mg PO BID 5 days #10 caps 01/07/25 Rx prednisone 20 mg tablet 40 mg (2 x 20 mg) PO DAILY 4 days 01/07/25 Rx #8 tabs Hospital Stay Data Consultations 01/06/25 19:28 ED Decision to Admit Stat Diagnostic Imagining Performed 01/06/25 17:15 CT for pulmonary embolism PE [CT angio chest PE protocol] Stat Pending Results Patient Have Any Pending Studies at Discharge: No Discharge Instructions Given to Patient (Per Discharging Provider) Diagnosis: chronic hypoxic respiratory failure 2/2 COPD, tobacco use Follow Ups: PCP, pulmonology Incidental Findings: bronchitis, atelectasis 1. Please follow up with PCP, pulmonology. 2. Finish course of steroids. 3. Please wear oxygen and wean with assistance of PCP. 4. Stop tobacco use. Total Time Total Time Spent Total Time Spent (In Minutes): I spent a total of 35 minutes in direct patient care, including [id number] time with the patient and/or family, reviewing medical records, ordering and reviewing diagnostic tests, and coordinating care with other healthcare providers. This time includes: history taking, physical examination, medical decision making, counseling, ECG interpretation, imaging interpretation, lab interpretation, orders, and education, excluding time spent in the performance of separately billed services.
== END 2025-01-07 16:57 | disposition home or self-care (01) | DRG 190 ==
LOC: ED 13:47 → 2W 19:53

== ENCOUNTER 2025-02-08 22:53 | Inpatient (IN) ==
--- NOTE | 2025-02-08 23:05 | Emergency Department Note ---
Impression & Plan SOB (shortness of breath), COPD (chronic obstructive pulmonary disease), Hypoxia ED Provider Note CHIEF COMPLAINT: Trouble breathing HISTORY OF PRESENTING ILLNESS: This 74-year-old male patient presents to the emergency department with his for evaluation of shortness of breath worsening for the past couple of days. He does have a history of COPD and has had recent problems breathing since the end of December. The prednisone from his last ER visit on 01/19/25 helped, but as soon as the prednisone stopped his symptoms got worse again. The patient states that "they took the oxygen back" and he is no longer on oxygen at home. He is on Spiriva per patient, but only started it a couple days ago. He is using his albuterol multiple times a day over the past couple days. He is having trouble sleeping at night from the SOB and phlegm. He denies any fevers. He denies any chest pain. Denies abdominal pain, nausea, or vomiting. He stopped smoking the end of December. The patient was seen in the ER on 01/19/2025 and diagnosed with a COPD exacerbation. He had been having increased phlegm production 3 to 4 days prior to that ER visit. The patient had also been admitted at the end of December for low oxygen saturations and he was discharged home on 2 L of oxygen for at home. He had not been taking his Breo inhaler at that time per the note, but was taking his albuterol as needed. The patient's workup was reassuring per the ER visit note. He felt improved after the IV Solu-Medrol and DuoNeb treatment. The patient was discharged home on oral steroids after his previous ER visit. REVIEW OF SYSTEMS: See HPI for pertinent positives and pertinent negatives. ALLERGIES: Tree and shrub pollen, honey bees, pollen MEDICATIONS: See below PAST MEDICAL HISTORY: See below PHYSICAL EXAM: VITALS: Vitals are noted on the nurse's note and reviewed by myself. GENERAL: The patient appears mildly short of breath with mild accessory muscle use, but no retractions or acute respiratory distress. Non toxic, in no acute distress, non-diaphoretic. SKIN: Capillary refill <2 sec. EYES: PERRLA. EOMI. Conjunctivae without injection, sclerae without icterus. NOSE: Patent without discharge. MOUTH: Mucous membranes moist. Uvula midline. Airway patent. NECK: Supple without nuchal rigidity. HEART: Regular rate and rhythm without murmurs gallops or rubs. LUNGS: The patient appears mildly short of breath with mild accessory muscle use, but no retractions or acute respiratory distress. This did improve after oxygen placement. The patient prefers an oxy mask since he is a mouth breather and does not do well with the nasal cannula. Lungs were clear to auscultation bilaterally with a few scattered wheezes, but no rales or rhonchi. ABDOMEN: Positive bowel sounds x 4. Normal tympanic percussion. Soft, nontender to palpation. No masses or hepatosplenomegaly. sign negative. No CVA tenderness. No guarding, rigidity, or rebound tenderness. No focal RLQ or LLQ tenderness. MUSCULOSKELETAL: Bilateral lower extremities without pitting edema. Bilateral calves are nontender to palpation without erythema, edema, or cording felt. Peripheral pulses 2+ and equal in the bilateral upper and lower extremities. NEURO: Patient was alert and oriented. No focal neurological deficits. DIFFERENTIAL DIAGNOSIS: Differential diagnosis includes URI, bronchitis, pneumonia, pneumothorax, hemothorax, PE, AR, pericarditis, myocarditis, airway obstruction, aspiration, pulmonary edema, asthma, COPD, CHF, pleurisy, metabolic acidosis, anemia, neoplasm, or others. ED COURSE AND MEDICAL DECISION MAKING: HISTORY FROM INDEPENDENT HISTORIAN: Additional history obtained from the patient's MEDICATIONS GIVEN: 250 mL normal saline solution bolus. DuoNeb treatment x 2. Solu-Medrol 125 mg IV. MONITOR: Continuous cherry dipper: Order was placed for continuous cherry dipper. Patient was placed on the cherry dipper and continuous pulse ox. Patient was noted to be in normal sinus rhythm at an initial rate of 90 bpm per my interpretation. EKG: EKG was interpreted by myself as sinus rhythm at [address] bpm with no acute ST or T wave changes. INTERPRETATION OF LABS: I interpreted the labs with full lab results as below in the lab section of this note. Laboratory results pertinent to the emergent complaint are discussed in the MDM section below. The patient was advised to follow up with their PCP and/or specialist(s) for further outpatient monitoring and management of any abnormal results. INTERPRETATION OF IMAGING: Imaging studies were interpreted by myself and read by radiology as per the imaging section of this note. The patient was advised to follow up with their PCP and/or specialist(s) for further outpatient management of any non-emergent abnormal findings. CT of the chest with IV contrast showed no evidence for PE or pneumonia. There is bronchial wall thickening in the lower lobes and some mucous plugging which may reflect bronchitis. There is also emphysema. Mildly aneurysmal ascending aorta at 4.6 cm which is stable. EXTERNAL RECORDS REVIEWED: I reviewed the patient's recent admission and ER visit as summarized above. CHRONIC MEDICAL/SOCIAL CONDITIONS AFFECTING CARE: COPD no longer on home oxygen CONSULTATIONS: On-call hospitalist CRITICAL CARE: I have personally spent 35 minutes of critical care time in the direct management of this patient. This includes bedside care, interpretation of diagnostic studies, and testing, discussion with consultants, patient, and family members, and other required patient management activities. This 35 minutes is in excess of all separately billable procedures. MDM SUMMARY: I examined the patient. The patient has been having problems with his breathing since the end of December. He was admitted in the end of December and was sent home with 2 L of oxygen. The patient was seen in the ER again on 01/09/2025 for shortness of breath and increased phlegm. His workup was reassuring and he felt improved after the IV steroids and DuoNeb treatment. Therefore, the patient was discharged home. However, he states that he was taken off of his home oxygen at his last office visit so he no longer has oxygen at home. The patient felt improved on the oral steroids after his last ER visit, but now his symptoms are worsening again. An IV lock was placed and labs were drawn. CBC normal without leukocytosis, anemia, or thrombocytopenia. Coags were normal. VBG with a pH of 7.34 and pCO2 of 59, but otherwise normal. CMP was normal. Magnesium normal. High- sensitivity troponin normal. Lipase normal. Respiratory BioFire normal. CT of the chest with IV contrast showed no evidence for PE or pneumonia. There is bronchial wall thickening in the lower lobes and some mucous plugging which may reflect bronchitis. There is also emphysema. Mildly aneurysmal ascending aorta at 4.6 cm which is stable. The patient was initially 88% on room air. He was placed on 2 L of oxygen by nasal cannula and improved to 93% on room air. The patient was given a trial off of oxygen again and he dropped to 86% on room air. The patient states that he does better with an oxy mask and was put on 2 L of oxygen by an oxy mask. The patient was given a DuoNeb treatment with improvement of his symptoms, but did require a second DuoNeb treatment. The patient was also given a Solu-Medrol 125 mg IV. Despite these interventions, the patient still remained hypoxic in the mid to high 80s off of oxygen. I had a meaningful discussion about this patient with Dr. Diallo who agrees with my assessment and the treatment plan. Due to the patient's continued hypoxia and trouble breathing without home oxygen, the patient will require admission for further evaluation and treatment. I spoke with the on-call hospitalist who agreed to admit the patient for further management. Please refer to their dictation for further details. The patient's care was transferred in stable condition. DIAGNOSIS: Shortness of breath Hypoxia Past Med/Surg History Problem List (Updated 02/09/25 @ 04:42 by Desiree Bolden PA-C) Hypoxia (Acute) SOB (shortness of breath) (Acute) Erythrocytosis (Acute) Acute exacerbation of chronic obstructive pulmonary disease (Acute) Acute hypoxic respiratory failure (Acute) Acute hypoxemic respiratory failure Thoracic ascending aortic aneurysm Alcohol abuse Tobacco abuse Dyslipidemia, goal LDL below 70 HTN, goal below 130/80 Thoracic aortic atherosclerosis Epigastric pain Chest pain at rest Chest pain (Acute) Tobacco use History of AAA (abdominal aortic aneurysm) repair COPD (chronic obstructive pulmonary disease) (Acute) Chest pain, rule out acute myocardial infarction Surgical History No pertinent past surgical history Family History Other Coronary heart disease Social History Smoking Status: Former smoker Tobacco Type: Cigarettes Cigarettes Per Day: 50; Second Hand Exposure: No; Do You Dip or Chew Tobacco: No; Hx Alcohol Use: Yes Alcohol type: beer and hard liquor Alcohol type Comment: up to 6 beers almost every daily Hx Substance Use: Yes Last Used Substance: Unknown Last Used Substance Other:: Pt states he rarely uses Marijuana Preferred Language: Ukrainian Communication Ability: Effective [employer] Operator Required: No Beliefs That Will Affect Care: None Current Living Situation: Alone and Spouse Other Information That Helps Us Care for You: No Feels Safe at Home: Yes Safety Concerns: Feels Safe At This Time Assistive Devices: Glasses and Oxygen - Continuous Allergies Allergies Allergy/AdvReac Type Severity Reaction Status Date / Time bee venom protein (honey bee) Allergy Severe EXTREME Verified 01/20/25 00:26 SWELLING AT STING SIGHTS. tree and shrub pollen Allergy Severe Difficulty Verified 01/20/25 00:26 Breathing pollen extracts Allergy Intermediate DIFFICULTY Verified 01/20/25 00:26 BREATHING/CONGESTION Home Meds Home Medications Medication Instructions Recorded Confirmed amlodipine 5 mg tablet 5 mg PO QPM 12/29/23 02/09/25 cholestyramine (with sugar) 4 gram 4 g PO DAILY PRN NEEDED PER 12/29/23 02/09/25 powder for susp in a packet PT'S (Ward) fluticasone furoate 100 1 inh inhalation QPM 12/29/23 02/09/25 mcg-vilanterol 25 mcg/dose inhalation powder folic acid 1 mg tablet 1 mg PO QPM 12/29/23 02/09/25 albuterol sulfate 90 mcg/actuation 2 puff inhalation Q4H PRN 01/06/25 02/09/25 aerosol inhaler Shortness Of Breath Or Wheezing rosuvastatin 40 mg tablet 40 mg PO QPM 01/06/25 02/09/25 pantoprazole 40 mg tablet,delayed 40 mg PO QPM 01/20/25 02/09/25 release Results & Data (ED) Vital Signs Vital Signs - 24 hr 02/08/25 22:55 02/08/25 23:03 02/08/25 23:03 Temperature 36.6 C Temperature Source Oral Pulse Rate 92 H Pulse Rate [Right Finger] 91 H Pulse Rhythm [Right Finger] Regular Pulse Strength [Right Finger] Normal Respiratory Rate 22 23 Respiratory Effort / Characteristics Non-Labored Non-Labored Non-Labored Respiratory Depth Normal Normal Respiratory Pattern Regular Regular Blood Pressure 156/79 H Blood Pressure [Right Arm] 144/87 H Blood Pressure Mean 104 Blood Pressure Mean [Right Arm] 106 Blood Pressure Position [Right Arm] Lying Pulse Oximetry 88 L 93 Oxygen Delivery Method Room Air Nasal Cannula Oxygen Flow Rate 2 Sepsis Recent Fever Within 48 Hours No Sepsis New/Unexplained Change in Mental Status N/A Sepsis Action Taken by Nursing No Action Required Oxygen Flow Rate - Titration Pulse Oximetry Post Tiitration 02/08/25 23:03 02/08/25 23:11 02/08/25 23:29 Temperature Temperature Source Pulse Rate 88 Pulse Rate [Right Finger] Pulse Rhythm [Right Finger] Pulse Strength [Right Finger] Respiratory Rate Respiratory Effort / Characteristics Respiratory Depth Respiratory Pattern Blood Pressure Blood Pressure [Right Arm] Blood Pressure Mean Blood Pressure Mean [Right Arm] Blood Pressure Position [Right Arm] Pulse Oximetry 86 L 93 Oxygen Delivery Method Room Air Oxymask Oxymask Oxygen Flow Rate 0 3 Sepsis Recent Fever Within 48 Hours Sepsis New/Unexplained Change in Mental Status Sepsis Action Taken by Nursing Oxygen Flow Rate - Titration 3 Pulse Oximetry Post Tiitration 93 02/09/25 00:59 02/09/25 02:00 02/09/25 03:30 Temperature Temperature Source Pulse Rate Pulse Rate [Right Finger] 80 79 84 Pulse Rhythm [Right Finger] Regular Regular Regular Pulse Strength [Right Finger] Respiratory Rate 18 16 18 Respiratory Effort / Characteristics Non-Labored Non-Labored Labored Respiratory Depth Normal Normal Normal Respiratory Pattern Regular Blood Pressure Blood Pressure [Right Arm] 120/71 119/77 125/92 Blood Pressure Mean Blood Pressure Mean [Right Arm] 87 91 103 Blood Pressure Position [Right Arm] Pulse Oximetry 93 95 94 Oxygen Delivery Method Oxymask Oxymask Oxymask Oxygen Flow Rate 3 3 2 Sepsis Recent Fever Within 48 Hours Sepsis New/Unexplained Change in Mental Status Sepsis Action Taken by Nursing Oxygen Flow Rate - Titration Pulse Oximetry Post Tiitration Laboratory Data 02/08/25 23:13 02/08/25 23:13 Lab Results 02/08/25 02/08/25 Range/Units 23:13 23:21 WBC 9.43 (4.8-10.8) K/ul RBC 4.97 (4.70-6.10) M/uL Hgb 16.9 (14.0-18.0) g/dL Hct 48.3 (42.0-52.0) % MCV 97.2 (80.0-100.0) fL MCH 34.0 (25.0-34.0) pg MCHC 35.0 (32.0-36.0) g/dL RDW Std Deviation 44.2 (36.4-46.3) fL RDW Coeff of Zenaida 12.4 (11.5-14.5) % Plt Count 226 (130-400) K/uL MPV 10.3 (9.4-12.4) fL Immature Gran % (Auto) 1.0 % Neut % (Auto) 44.3 % Lymph % (Auto) 28.7 % [place] % (Auto) 10.5 % Eos % (Auto) 14.4 % Baso % (Auto) 1.1 % Neut # (Auto) 4.18 (1.40-6.50) K/uL Lymph # (Auto) 2.71 (1.20-3.40) K/uL [place] # (Auto) 0.99 H (0.11-0.59) K/uL Eos # (Auto) 1.36 H (0.00-0.50) K/uL Baso # (Auto) 0.10 (0.00-0.20) K/uL Immature Gran # (Auto) 0.09 (0.01-0.20) K/uL PT 10.2 (9.0-12.0) Seconds INR 1.0 (0.9-1.1) APTT 27 (21-31) Seconds PTT Ratio 1.0 VBG pH 7.34 L (7.36-7.41) VBG pCO2 59 H (38-50) mmHg VBG pO2 33 mmHg VBG HCO3 32 mmol/L VBG O2 Saturation < 60.0 % VBG Base Excess 4.3 mEq/L Sodium 137 (136-145) mmol/L Potassium 3.9 (3.5-5.1) mmol/L Chloride 101 (98-107) mmol/L Carbon Dioxide 31 (21-32) mmol/L Anion Gap 5 (3-11) BUN 14 (6-23) mg/dl Creatinine 0.89 (0.6-1.4) mg/dl Est Cr Clr Drug Dosing 93.3 ml/min eGFR 90.49 BUN/Creatinine Ratio 15.7 (10-20) Glucose 99 (70-99(Fasting)) mg/dl Calcium 9.3 (8.6-10.3) mg/dl Magnesium 2.0 (1.7-2.4) mg/dl Total Bilirubin 0.6 (0.2-1.0) mg/dl AST 17 (13-39) U/L ALT 12 (7-52) U/L Alkaline Phosphatase 70 (34-104) U/L Troponin I High Sens 7.0 (0-20) pg/ml Total Protein 7.3 (6.0-8.3) gm/dl Albumin 4.0 (3.4-5.0) gm/dl Globulin 3.3 (2.5-4.0) gm/dl Albumin/Globulin Ratio 1.2 (0.9-2) Lipase 40 (11-82) U/L Adenovirus (PCR) Not Detected (NotDetected) B. pertussis DNA (PCR) Not Detected (NotDetected) B.parapertussis DNA PCR Not Detected (NotDetected) C. pneumoniae DNA (PCR) Not Detected (NotDetected) Coronavirus OC43 (PCR) Not Detected (NotDetected) Coronavirus HKU1 (PCR) Not Detected (NotDetected) Coronavirus 229E (PCR) Not Detected (NotDetected) SARS-CoV-2 (PCR) Not Detected (NotDetected) Coronavirus NL63 (PCR) Not Detected (NotDetected) Human Metapneumovir PCR Not Detected (NotDetected) Influenza Type A (PCR) Not Detected (NotDetected) Influenza Type B (PCR) Not Detected (NotDetected) M. pneumoniae (PCR) Not Detected (NotDetected) Parainfluenza 1 (PCR) Not Detected (NotDetected) Parainfluenza 2 (PCR) Not Detected (NotDetected) Parainfluenza 3 (PCR) Not Detected (NotDetected) Parainfluenza 4 (PCR) Not Detected (NotDetected) RSV (PCR) Not Detected (NotDetected) Entero/Rhino (PCR) Not Detected (NotDetected) Administered Medications Discontinued Medications Albuterol (Albut/Ipratrop 3mg/0.5mg Neb 3 Ml Vial) 3 ml NEB NOW STA; Protocol Stop: 02/08/25 23:14 Last Admin: 02/08/25 23:17 Dose: 3 ml Documented By: SHB Albuterol (Albut/Ipratrop 3mg/0.5mg Neb 3 Ml Vial) 3 ml NEB NOW STA; Protocol Stop: 02/09/25 03:18 Last Admin: 02/09/25 03:25 Dose: 3 ml Documented By: NAW Sodium Chloride (Nss) 250 mls @ 999 mls/hr IV .Q16M ONE Stop: 02/08/25 23:28 Last Infusion: 02/08/25 23:34 Dose: Infused Documented By: Admin: 02/08/25 23:17 Dose: 999 mls/hr Documented By: DIANE Thiamine HCl 100 mg/ Syringe 10 mls @ 2 mls/min IV NOW STA Stop: 02/09/25 03:46 Last Admin: 02/09/25 03:50 Dose: 2 mls/min Documented By: NEVAEH Ioversol (Optiray 320 125ml) 125 ml IV ONCE ONE Stop: 02/08/25 23:54 Last Admin: 02/08/25 23:54 Dose: 118 ml Documented By: JUAN Methylprednisolone (Methylprednisolone 125 Mg/2 Ml Vial) 125 mg IV NOW STA Stop: 02/09/25 03:12 Last Admin: 02/09/25 03:26 Dose: 125 mg Documented By: NEVAEH Imaging Data Radiologist's Impression: Chest CTA 02/08/25 23:13 Exam(s): CTA CHEST IV Amt: 118 ML OPTIRAY 320 EXAM: CT Angiography Chest With Intravenous Contrast CLINICAL HISTORY: Reason for exam: worsening SOB - eval PE. OTHER: Other Notes: worsening SOB - eval PE TECHNIQUE: Axial computed tomographic angiography images of the chest with intravenous contrast. Automated exposure control was utilized for the study. A dose lowering technique was utilized adhering to the principles of ALARA. MIP reconstructed images were created and reviewed. COMPARISON: CTA Chest dated 01/06/2025 FINDINGS: Pulmonary arteries: Unremarkable. No pulmonary embolism. Aorta: Mildly aneurysmal ascending aorta, 4.6 cm. Stable. Lungs: Bronchial wall thickening in the lower lobes and some mucous plugging. Moderate centrilobular emphysema. Mild bibasilar atelectasis. No mass. Pleural space: Unremarkable. No significant effusion. No pneumothorax. Heart: Coronary calcifications. No cardiomegaly. No significant pericardial effusion. No evidence of RV dysfunction. Mediastinum: Calcified granulomatous mediastinal and hilar nodes. Bones/joints: No acute fracture. No dislocation. Soft tissues: Unremarkable. Lymph nodes: See above. Adrenals: Stable left adrenal nodule, partially visualized. Likely adenoma. Other findings: Bilateral calcified granulomas. IMPRESSION: 1. No evidence of pulmonary embolism. 2. Bronchial wall thickening in the lower lobes and some mucous plugging. May reflect bronchitis. 3. Emphysema. 4. Mildly aneurysmal ascending aorta, 4.6 cm. Stable. Electronically signed by: Penelope Corley M.D. 02/09/25 03:03 AM Discharge Plan Visit Data Chief Complaint: Shortness of Breath/Dyspnea Stated Complaint: BREATHING DIFFICULTIES ED Provider: Susan Diallo ED Midlevel Provider: Desiree Bolden Discharge Problem: SOB (shortness of breath), COPD (chronic obstructive pulmonary disease), Hypoxia Patient Disposition: Admitted As Inpatient Condition: Fair Discharge Instructions Interventions: ED Discharge Assessment Last Done: 02/09/25 04:38
[2025-02-08] MEDS: ALBUT/IPRATROP 3MG/0.5MG NEB 3 ML VIAL NEB STA (23:17)
[2025-02-08] MEDS: SODIUM CHLORIDE 0.9% 250 ML IV ONE (23:17)
[2025-02-08 23:27] LABS: Hematocrit (blood only) 48.3 % (42.0-52.0); Hemoglobin 16.9 g/dL (14.0-18.0); Immature Granulocytes # (auto) 0.09 K/uL (0.01-0.20); Immature Granulocytes % (auto) 1.0 %; Mean Corpuscular Hemoglobin 34.0 pg (25.0-34.0); Mean Corpuscular Volume 97.2 fL (80.0-100.0); Platelet Count 226 K/uL (130-400); RDW Standard Deviation 44.2 fL (36.4-46.3); Red Blood Count 4.97 M/uL (4.70-6.10); White Blood Count 9.43 K/ul (4.8-10.8)
[2025-02-08 23:27] LABS: Base Excess VBG 4.3 mEq/L; HCO3 VBG 32 mmol/L; Oxygen Saturation VBG < 60.0 %; PCO2 VBG 59 mmHg (38-50); PO2 VBG 33 mmHg; pH VBG 7.34 (7.36-7.41)
[2025-02-08 23:44] LABS: Alanine Aminotransferase 12.0 U/L (7-52); Albumin Globulin Ratio 1.2 (0.9-2); Albumin Level 4.0 gm/dl (3.4-5.0); Alkaline Phosphatase 70.0 U/L (34-104); Anion Gap 5.0 (3-11); Bilirubin,Total 0.6 mg/dl (0.2-1.0); Blood Urea Nitrogen 14.0 mg/dl (6-23); Calcium 9.3 mg/dl (8.6-10.3); Carbon Dioxide 31.0 mmol/L (21-32); Chloride 101.0 mmol/L (98-107); Creatinine Clr Calc Pharmacy 93.3 ml/min; Globulin 3.3 gm/dl (2.5-4.0); Glucose 99.0 mg/dl (70-99(Fasting)); Lipase 40.0 U/L (11-82); Magnesium 2.0 mg/dl (1.7-2.4); Potassium 3.9 mmol/L (3.5-5.1); Sodium 137.0 mmol/L (136-145); Total Protein 7.3 gm/dl (6.0-8.3)
[2025-02-08 23:54] LABS: INR 1.0 (0.9-1.1); Partial Thromboplastin Time 27 Seconds (21-31); Prothrombin Time 10.2 Seconds (9.0-12.0)
[2025-02-08] MEDS: OPTIRAY 320 125ml IV ONE (23:54)
[2025-02-09 00:22] LABS: Chlamydia pneumoniae PCR Not Detected (NotDetected); Coronavirus 229E PCR Not Detected (NotDetected); Coronavirus CoV-2 (COVID19)PCR Not Detected (NotDetected); Coronavirus HKU1 PCR Not Detected (NotDetected); Coronavirus NL63 PCR Not Detected (NotDetected); Coronavirus OC43PCR Not Detected (NotDetected); Human Metapneumovirus PCR Not Detected (NotDetected); Parainfluenza Virus 1 PCR Not Detected (NotDetected); Parainfluenza Virus 2 PCR Not Detected (NotDetected); Parainfluenza Virus 3 PCR Not Detected (NotDetected); Parainfluenza Virus 4 PCR Not Detected (NotDetected); Respiratory Syncytial VirusPCR Not Detected (NotDetected); Rhinovirus/Enterovirus PCR Not Detected (NotDetected)
--- NOTE | 2025-02-09 03:04 | CT Scan Report ---
Exam(s): CTA CHEST IV Amt: 118 ML OPTIRAY 320 EXAM: CT Angiography Chest With Intravenous Contrast CLINICAL HISTORY: Reason for exam: worsening SOB - eval PE. OTHER: Other Notes: worsening SOB - eval PE TECHNIQUE: Axial computed tomographic angiography images of the chest with intravenous contrast. Automated exposure control was utilized for the study. A dose lowering technique was utilized adhering to the principles of ALARA. MIP reconstructed images were created and reviewed. COMPARISON: CTA Chest dated 01/06/2025 FINDINGS: Pulmonary arteries: Unremarkable. No pulmonary embolism. Aorta: Mildly aneurysmal ascending aorta, 4.6 cm. Stable. Lungs: Bronchial wall thickening in the lower lobes and some mucous plugging. Moderate centrilobular emphysema. Mild bibasilar atelectasis. No mass. Pleural space: Unremarkable. No significant effusion. No pneumothorax. Heart: Coronary calcifications. No cardiomegaly. No significant pericardial effusion. No evidence of RV dysfunction. Mediastinum: Calcified granulomatous mediastinal and hilar nodes. Bones/joints: No acute fracture. No dislocation. Soft tissues: Unremarkable. Lymph nodes: See above. Adrenals: Stable left adrenal nodule, partially visualized. Likely adenoma. Other findings: Bilateral calcified granulomas. IMPRESSION: 1. No evidence of pulmonary embolism. 2. Bronchial wall thickening in the lower lobes and some mucous plugging. May reflect bronchitis. 3. Emphysema. 4. Mildly aneurysmal ascending aorta, 4.6 cm. Stable. Electronically signed by: Penelope Corley M.D. 02/09/25 03:03 AM
[2025-02-09] MEDS: ALBUT/IPRATROP 3MG/0.5MG NEB 3 ML VIAL NEB STA (03:25)
--- NOTE | 2025-02-09 03:38 | History & Physical Report ---
Date of Service February 09, 2025 Assessment & Plan (1) Acute hypoxic respiratory failure: Plan: Assessment and plan below following discussion of case with ED provider and reviewing patient history/pertinent normal/abnormal diagnostic test results. Acute hypoxemic, hypercapnic respiratory failure secondary to COPD exacerbation No sepsis for now CAD/PVD as per records hypertension, slightly elevated hyperlipidemia, on statin Rx alcohol abuse, last drink was yesterday Past tobacco abuse Admit to med/tele Supplemental O2 nebs RTC, prednisone course, no indication for antibiotics for now Pulmonology consulted without improvement IVETH S at risk, DT precautions DVT prophylaxis. Lovenox subcu Full code Text document was generated using [employer] voice recognition software. It may contain grammatical or spelling errors. Kindly contact undersigned for clarification of any documentation item in question. History of Present Illness Chief Complaint: Shortness of breath Primary Care Provider: [facility] History obtained from patient and records. Medical history significant for CAD/PVD, COPD, pulmonary nodules, hypertension, hyperlipidemia, alcohol abuse, past tobacco abuse. Recent confinement last December 2024 for respiratory failure secondary to COPD exacerbation. Patient had worsening shortness of breath the last 2 days. Chronic cough symptoms not any worse. Denies chest pain. Denies aspiration. Home O2 taken back by insurance as per patient because his oxygen was good. Not sure about sick contacts. O2 sats 80s upon arrival at the ER. Solu-Medrol, and neb treatment administered at the ER. Patient currently feeling much better. 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 tree and shrub pollen Allergy Severe Difficulty Verified 01/20/25 00:26 Breathing pollen extracts Allergy Intermediate DIFFICULTY Verified 01/20/25 00:26 BREATHING/CONGESTION Home Medications Medication Instructions Recorded Confirmed Type amlodipine 5 mg tablet 5 mg PO QPM 12/29/23 02/09/25 History cholestyramine (with sugar) 4 gram 4 g PO DAILY PRN NEEDED PER 12/29/23 02/09/25 History powder for susp in a packet PT'S (Questran) fluticasone furoate 100 1 inh inhalation QPM 12/29/23 02/09/25 History mcg-vilanterol 25 mcg/dose inhalation powder folic acid 1 mg tablet 1 mg PO QPM 12/29/23 02/09/25 History albuterol sulfate 90 mcg/actuation 2 puff inhalation Q4H PRN 01/06/25 02/09/25 History aerosol inhaler Shortness Of Breath Or Wheezing rosuvastatin 40 mg tablet 40 mg PO QPM 01/06/25 02/09/25 History pantoprazole 40 mg tablet,delayed 40 mg PO QPM 01/20/25 02/09/25 History release Past Med/Surg History Problem List (Updated 02/09/25 @ 04:42 by Desiree Bolden PA-C) Hypoxia (Acute) SOB (shortness of breath) (Acute) Erythrocytosis (Acute) Acute exacerbation of chronic obstructive pulmonary disease (Acute) Acute hypoxic respiratory failure (Acute) Acute hypoxemic respiratory failure Thoracic ascending aortic aneurysm Alcohol abuse Tobacco abuse Dyslipidemia, goal LDL below 70 HTN, goal below 130/80 Thoracic aortic atherosclerosis Epigastric pain Chest pain at rest Chest pain (Acute) Tobacco use History of AAA (abdominal aortic aneurysm) repair COPD (chronic obstructive pulmonary disease) (Acute) Chest pain, rule out acute myocardial infarction Surgical History No pertinent past surgical history Family History Other Coronary heart disease Social History Smoking Status: Former smoker Tobacco Type: Cigarettes Cigarettes Per Day: 50; Second Hand Exposure: No; Do You Dip or Chew Tobacco: No; Hx Alcohol Use: Yes Alcohol type: beer and hard liquor Alcohol type Comment: up to 6 beers almost every daily Hx Substance Use: Yes Last Used Substance: Unknown Last Used Substance Other:: Pt states he rarely uses Marijuana Preferred Language: Djiboutian Communication Ability: Effective Senior Energy Trader Required: No Beliefs That Will Affect Care: None Current Living Situation: Alone and Spouse Other Information That Helps Us Care for You: No Feels Safe at Home: Yes Safety Concerns: Feels Safe At This Time Assistive Devices: Glasses and Oxygen - Continuous Review of Systems Review of Systems: As per HPI, all other systems reviewed and negative Physical Exam Physical Exam: GENERAL: Comfortable, slightly anxious, slightly hard of hearing, no respiratory distress SKIN: Normal color, warm HEENT: [place] palpebral conjunctivae, no ptosis, dry buccal mucosa, O2 mask in place NECK : Supple, no tenderness CHEST : Decreased breath sounds, no tenderness HEART : RRR, no obvious murmurs ABDOMEN: Some distention, nontender EXTREMITIES : Minimal LE swelling/tenderness, palpable pulses, no other conspicuous deformities noted NEUROLOGIC : Coherent, no facial asymmetry, no other gross focality Results & Data Results & Data Vital Signs (Past 12 Hours) Vital Signs Temp Pulse Pulse Resp BP BP Pulse Ox 02/09/25 02:00 79 16 119/77 95 02/09/25 00:59 80 18 120/71 93 02/08/25 23:29 93 02/08/25 23:11 86 L 02/08/25 23:03 88 02/08/25 23:03 91 H 23 144/87 H 93 02/08/25 22:55 36.6 C 92 H 22 156/79 H 88 L O2 Del Method O2 Flow Rate 02/09/25 02:00 Oxymask 3 02/09/25 00:59 Oxymask 3 02/08/25 23:29 Oxymask 3 02/08/25 23:11 Room Air, Oxymask 0 02/08/25 23:03 02/08/25 23:03 Nasal Cannula 2 02/08/25 22:55 Room Air Laboratory Results Laboratory Results WBC 9.43 K/ul (4.8-10.8) 02/08/25 23:13 RBC 4.97 M/uL (4.70-6.10) 02/08/25 23:13 Hgb 16.9 g/dL (14.0-18.0) 02/08/25 23:13 Hct 48.3 % (42.0-52.0) 02/08/25 23:13 MCV 97.2 fL (80.0-100.0) 02/08/25 23:13 MCH 34.0 pg (25.0-34.0) 02/08/25 23:13 MCHC 35.0 g/dL (32.0-36.0) 02/08/25 23:13 RDW Std Deviation 44.2 fL (36.4-46.3) 02/08/25 23:13 RDW Coeff of Zenaida 12.4 % (11.5-14.5) 02/08/25 23:13 Plt Count 226 K/uL (130-400) 02/08/25 23:13 MPV 10.3 fL (9.4-12.4) 02/08/25 23:13 Immature Gran % (Auto) 1.0 % 02/08/25 23:13 Neut % (Auto) 44.3 % 02/08/25 23:13 Lymph % (Auto) 28.7 % 02/08/25 23:13 [place] % (Auto) 10.5 % 02/08/25 23:13 Eos % (Auto) 14.4 % 02/08/25 23:13 Baso % (Auto) 1.1 % 02/08/25 23:13 Neut # (Auto) 4.18 K/uL (1.40-6.50) 02/08/25 23:13 Lymph # (Auto) 2.71 K/uL (1.20-3.40) 02/08/25 23:13 [place] # (Auto) 0.99 K/uL (0.11-0.59) H 02/08/25 23:13 Eos # (Auto) 1.36 K/uL (0.00-0.50) H 02/08/25 23:13 Baso # (Auto) 0.10 K/uL (0.00-0.20) 02/08/25 23:13 Immature Gran # (Auto) 0.09 K/uL (0.01-0.20) 02/08/25 23:13 PT 10.2 Seconds (9.0-12.0) 02/08/25 23:13 INR 1.0 (0.9-1.1) 02/08/25 23:13 APTT 27 Seconds (21-31) 02/08/25 23:13 PTT Ratio 1.0 02/08/25 23:13 VBG pH 7.34 (7.36-7.41) L 02/08/25 23:21 VBG pCO2 59 mmHg (38-50) H 02/08/25 23:21 VBG pO2 33 mmHg 02/08/25 23:21 VBG HCO3 32 mmol/L 02/08/25 23:21 VBG O2 Saturation < 60.0 % 02/08/25 23:21 VBG Base Excess 4.3 mEq/L 02/08/25 23:21 Sodium 137 mmol/L (136-145) 02/08/25 23:13 Potassium 3.9 mmol/L (3.5-5.1) 02/08/25 23:13 Chloride 101 mmol/L (98-107) 02/08/25 23:13 Carbon Dioxide 31 mmol/L (21-32) 02/08/25 23:13 Anion Gap 5 (3-11) 02/08/25 23:13 BUN 14 mg/dl (6-23) 02/08/25 23:13 Creatinine 0.89 mg/dl (0.6-1.4) 02/08/25 23:13 Est Cr Clr Drug Dosing 93.3 ml/min 02/08/25 23:13 eGFR 90.49 02/08/25 23:13 BUN/Creatinine Ratio 15.7 (10-20) 02/08/25 23:13 Glucose 99 mg/dl (70-99(Fasting)) 02/08/25 23:13 Calcium 9.3 mg/dl (8.6-10.3) 02/08/25 23:13 Magnesium 2.0 mg/dl (1.7-2.4) 02/08/25 23:13 Total Bilirubin 0.6 mg/dl (0.2-1.0) 02/08/25 23:13 AST 17 U/L (13-39) 02/08/25 23:13 ALT 12 U/L (7-52) 02/08/25 23:13 Alkaline Phosphatase 70 U/L (34-104) 02/08/25 23:13 Troponin I High Sens 7.0 pg/ml (0-20) 02/08/25 23:13 Total Protein 7.3 gm/dl (6.0-8.3) 02/08/25 23:13 Albumin 4.0 gm/dl (3.4-5.0) 02/08/25 23:13 Globulin 3.3 gm/dl (2.5-4.0) 02/08/25 23:13 Albumin/Globulin Ratio 1.2 (0.9-2) 02/08/25 23:13 Lipase 40 U/L (11-82) 02/08/25 23:13 Adenovirus (PCR) Not Detected (NotDetected) 02/08/25 23:21 B. pertussis DNA (PCR) Not Detected (NotDetected) 02/08/25 23:21 B.parapertussis DNA PCR Not Detected (NotDetected) 02/08/25 23:21 C. pneumoniae DNA (PCR) Not Detected (NotDetected) 02/08/25 23:21 Coronavirus OC43 (PCR) Not Detected (NotDetected) 02/08/25 23:21 Coronavirus HKU1 (PCR) Not Detected (NotDetected) 02/08/25 23:21 Coronavirus 229E (PCR) Not Detected (NotDetected) 02/08/25 23:21 SARS-CoV-2 (PCR) Not Detected (NotDetected) 02/08/25 23:21 Coronavirus NL63 (PCR) Not Detected (NotDetected) 02/08/25 23:21 Human Metapneumovir PCR Not Detected (NotDetected) 02/08/25 23:21 Influenza Type A (PCR) Not Detected (NotDetected) 02/08/25 23:21 Influenza Type B (PCR) Not Detected (NotDetected) 02/08/25 23:21 M. pneumoniae (PCR) Not Detected (NotDetected) 02/08/25 23:21 Parainfluenza 1 (PCR) Not Detected (NotDetected) 02/08/25 23:21 Parainfluenza 2 (PCR) Not Detected (NotDetected) 02/08/25 23:21 Parainfluenza 3 (PCR) Not Detected (NotDetected) 02/08/25 23:21 Parainfluenza 4 (PCR) Not Detected (NotDetected) 02/08/25 23:21 RSV (PCR) Not Detected (NotDetected) 02/08/25 23:21 Entero/Rhino (PCR) Not Detected (NotDetected) 02/08/25 23:21 Impressions Chest CTA 02/08/25 23:13 Exam(s): CTA CHEST IV Amt: 118 ML OPTIRAY 320 EXAM: CT Angiography Chest With Intravenous Contrast CLINICAL HISTORY: Reason for exam: worsening SOB - eval PE. OTHER: Other Notes: worsening SOB - eval PE TECHNIQUE: Axial computed tomographic angiography images of the chest with intravenous contrast. Automated exposure control was utilized for the study. A dose lowering technique was utilized adhering to the principles of ALARA. MIP reconstructed images were created and reviewed. COMPARISON: CTA Chest dated 01/06/2025 FINDINGS: Pulmonary arteries: Unremarkable. No pulmonary embolism. Aorta: Mildly aneurysmal ascending aorta, 4.6 cm. Stable. Lungs: Bronchial wall thickening in the lower lobes and some mucous plugging. Moderate centrilobular emphysema. Mild bibasilar atelectasis. No mass. Pleural space: Unremarkable. No significant effusion. No pneumothorax. Heart: Coronary calcifications. No cardiomegaly. No significant pericardial effusion. No evidence of RV dysfunction. Mediastinum: Calcified granulomatous mediastinal and hilar nodes. Bones/joints: No acute fracture. No dislocation. Soft tissues: Unremarkable. Lymph nodes: See above. Adrenals: Stable left adrenal nodule, partially visualized. Likely adenoma. Other findings: Bilateral calcified granulomas. IMPRESSION: 1. No evidence of pulmonary embolism. 2. Bronchial wall thickening in the lower lobes and some mucous plugging. May reflect bronchitis. 3. Emphysema. 4. Mildly aneurysmal ascending aorta, 4.6 cm. Stable. Electronically signed by: Penelope Corley M.D. 02/09/25 03:03 AM Diagnostic Findings EKG as per my interpretation :Rate 90, NSR, normal axis, 1 AVB, no ischemia
[2025-02-09] MEDS: THIAMINE HCL 100 MG in SYRINGE 9 ML IV STA (03:50)
[2025-02-09] MEDS ORDERED: LORazepam Inj 1 MG in SYRINGE 0.5 ML IV PRN (04:06)
[2025-02-09] MEDS ORDERED: PROMETHAZINE 6.25 MG/50.25 ML BAG IV PRN (04:06)
[2025-02-09] MEDS ORDERED: LORazepam Inj 2 MG in SYRINGE 1 ML IV PRN (04:06)
[2025-02-09] MEDS ORDERED: ACETAMINOPHEN 325 MG TAB PO PRN (04:06)
[2025-02-09] MEDS ORDERED: LORazepam Inj 3 MG in SYRINGE 1.5 ML IV PRN (04:06)
--- NOTE | 2025-02-09 04:26 | Emergency Department Note ---
ED Visit Note I was consulted by the Advanced Practice Provider. I personally made/approved the management plan and take responsibility for the patient management. I performed a substantive portion of the visit. This includes the aspects of: Personally seeing the patient -MDM I reviewed CT scan of the chest. The patient be admitted to the [facility] service. .
[2025-02-09 06:58] LABS: Hematocrit (blood only) 46.1 % (42.0-52.0); Hemoglobin 15.4 g/dL (14.0-18.0); Immature Granulocytes # (auto) 0.13 K/uL (0.01-0.20); Immature Granulocytes % (auto) 1.2 %; Mean Corpuscular Hemoglobin 32.4 pg (25.0-34.0); Mean Corpuscular Volume 97.1 fL (80.0-100.0); Platelet Count 198 K/uL (130-400); RDW Standard Deviation 44.2 fL (36.4-46.3); Red Blood Count 4.75 M/uL (4.70-6.10); White Blood Count 11.03 K/ul (4.8-10.8)
[2025-02-09] MEDS ORDERED: IPRATROPIUM BROMIDE NEB SOLN 0.02% 0.5MG/2.5ML VIAL NEB SCH (07:00)
[2025-02-09] MEDS: ALBUT/IPRATROP 3MG/0.5MG NEB 3 ML VIAL NEB SCH (07:25)
[2025-02-09 07:30] LABS: Anion Gap 6.0 (3-11); Blood Urea Nitrogen 12.0 mg/dl (6-23); Calcium 9.0 mg/dl (8.6-10.3); Carbon Dioxide 30.0 mmol/L (21-32); Chloride 102.0 mmol/L (98-107); Creatinine Clr Calc Pharmacy 92.3 ml/min; Glucose 131.0 mg/dl (70-99(Fasting)); Potassium 4.0 mmol/L (3.5-5.1); Sodium 138.0 mmol/L (136-145)
[2025-02-09] MEDS: MULTIVITAMIN TAB PO SCH (08:54)
[2025-02-09] MEDS: FOLIC ACID 1 MG TAB PO SCH (08:54)
[2025-02-09] MEDS: ENOXAPARIN INJ 40 MG/0.4 ML SYR SQ SCH (08:54)
--- NOTE | 2025-02-09 10:36 | Electrocardiogram Report ---
Test Reason : Blood Pressure : */* mmHG Vent. Rate : 88 BPM Atrial Rate : 88 BPM P-R Int : 234 ms QRS Dur : 80 ms QT Int : 342 ms P-R-T Axes : 75 0 54 degrees QTcB Int : 413 ms Sinus rhythm with 1st degree A-V block Otherwise normal ECG When compared with ECG of 19-Jan-2025 23:31, Borderline criteria for Anterior infarct are no longer Present Confirmed by Saul Michael ([id number]) on 02/09/2025 10:36:02 AM Referred By: REFERRED SELF Confirmed By: Saul Michael
--- NOTE | 2025-02-09 11:48 | Hospitalist Progress Note ---
Date of Service February 09, 2025 Assessment & Plan (1) Acute exacerbation of chronic obstructive pulmonary disease: Plan: History of COPD and was on oxygen before Presented with worsening shortness of breath for 2 days prior to admission No infection identified Received methylprednisone intravenously and now on oral prednisone Has been getting nebulized bronchodilators Clinically much better and would continue current management Has been on 2 L of oxygen and will need to have steps O2 saturation test prior to discharge (2) Acute hypoxic respiratory failure: Plan: Assessment and plan below following discussion of case with ED provider and reviewing patient history/pertinent normal/abnormal diagnostic test results. Acute hypoxemic, hypercapnic respiratory failure secondary to COPD exacerbation No sepsis for now Other significant medical conditions remained stable and are as below: CAD/PVD as per records Hypertension, slightly elevated- controlled now Hyperlipidemia, on statin Rx Alcohol abuse, last drink was yesterday Past tobacco abuse DVT prophylaxis. Lovenox subcu Full code Text document was generated using [employer] voice recognition software. It may contain grammatical or spelling errors. Kindly contact undersigned for clarification of any documentation item in question. (3) HTN, goal below 130/80: (4) Dyslipidemia, goal LDL below 70: (5) History of AAA (abdominal aortic aneurysm) repair: Admission and Anticipated Discharge Date Admission Date: February 09, 2025 Subjective 02/09/2025 The patient was seen and examined in medical telemetry unit He has been feeling much better with improvement of shortness of breath and chest tightness Denies any wheezing, still has some cough without any phlegm No fever and no chills, no abdominal pain nausea no vomiting Review of Systems Review of Systems: All systems reviewed and are unremarkable except as noted below Physical Exam Physical Exam: Lying in bed with minimal respiratory distress Constitutional: well developed, well nourished, + ill appearing and average body habitus Eyes: PERRL, conjunctivae normal, anicteric sclerae ENMT: external ear and nose normal, oropharynx normal Neck: trachea midline, no thyromegaly Respiratory: + respiratory distress ( minimal distres s at rest) Auscultation: + diminished lung sounds; no crackles and no wheezes Cardiovascular: Rate/Rhythm: regular rate and regular rhythm; not tachycardic Heart Sounds: normal S1 and normal S2; no murmur Extremities: no edema Gastrointestinal (Abdomen): Inspection/Auscultation: normal bowel sounds; abdomen not distended Percussion/Palpation: abdomen soft; abdomen nontender Musculoskeletal: No acute arthritis involving any of the joint Neurologic: normal touch/pain/proprioception and moves all extremities; no focal motor deficits Lymphatic: no cervical or axillary lymphadenopathy Results & Data Results & Data Vital Signs (Past 12 Hours) Vital Signs Temp Pulse Pulse Resp BP BP Pulse Ox 02/09/25 08:08 36.3 C L 96 H 16 122/69 93 02/09/25 07:27 101 H 20 96 02/09/25 05:50 83 02/09/25 04:59 36.4 C L 85 18 156/73 H 95 02/09/25 04:45 02/09/25 04:45 36.4 C L 85 18 156/73 H 95 02/09/25 04:38 85 20 126/73 95 02/09/25 04:00 85 20 141/81 H 97 02/09/25 03:30 84 18 125/92 94 02/09/25 02:00 79 16 119/77 95 02/09/25 00:59 80 18 120/71 93 O2 Del Method O2 Flow Rate 02/09/25 08:08 Oxymask 2 02/09/25 07:27 Oxymask 3 02/09/25 05:50 02/09/25 04:59 Oxymask 2 02/09/25 04:45 Oxymask 2 02/09/25 04:45 Oxymask 2 02/09/25 04:38 Oxymask 2 02/09/25 04:00 Oxymask 02/09/25 03:30 Oxymask 2 02/09/25 02:00 Oxymask 3 02/09/25 00:59 Oxymask 3 Laboratory Results Short CBC 02/08/25 02/09/25 Range/Units 23:13 06:04 WBC 9.43 11.03 H (4.8-10.8) K/ul Hgb 16.9 15.4 (14.0-18.0) g/dL Hct 48.3 46.1 (42.0-52.0) % Plt Count 226 198 (130-400) K/uL BMP 02/08/25 02/09/25 23:13 06:04 Sodium 137 138 Potassium 3.9 4.0 Chloride 101 102 Carbon Dioxide 31 30 BUN 14 12 Creatinine 0.89 0.90 Glucose 99 131 H Calcium 9.3 9.0 Liver Function 02/08/25 Range/Units 23:13 Total Bilirubin 0.6 (0.2-1.0) mg/dl AST 17 (13-39) U/L ALT 12 (7-52) U/L Alkaline Phosphatase 70 (34-104) U/L Albumin 4.0 (3.4-5.0) gm/dl Medications Administered Current Inpatient Medications Acetaminophen (Acetaminophen 325 Mg Tab) 650 mg PO QID PRN PRN Reason: pain/fever Stop: 03/11/25 04:05 Albuterol (Albut/Ipratrop 3mg/0.5mg Neb 3 Ml Vial) 3 ml NEB Q6R [facility]; Protocol Stop: 03/11/25 06:59 Last Admin: 02/09/25 07:25 Dose: 3 ml Amlodipine Besylate (Amlodipine Besylate 5 Mg Tab) 5 mg PO QPM [facility] Stop: 03/11/25 20:59 Enoxaparin Sodium (Enoxaparin Inj 40 Mg/0.4 Ml Syr) 40 mg SQ [facility] Stop: 03/11/25 08:59 Last Admin: 02/09/25 08:54 Dose: 40 mg Folic Acid (Folic Acid 1 Mg Tab) 1 mg PO [facility] Stop: 03/11/25 08:59 Last Admin: 02/09/25 08:54 Dose: 1 mg Lorazepam 1 mg/ Syringe 1 mls @ 2 mls/min IV UD PRN; Protocol PRN Reason: AWSS 6,7 (Sx Triggered) Stop: 03/11/25 04:05 Lorazepam 2 mg/ Syringe 2 mls @ 2 mls/min IV UD PRN; Protocol PRN Reason: AWSS 8,9 (Sx Triggered) Stop: 03/11/25 04:05 Lorazepam 3 mg/ Syringe 3 mls @ 2 mls/min IV ONCE PRN; Protocol PRN Reason: AWSS 10 & Above(Sx Triggered) Stop: 03/11/25 04:05 Promethazine HCl (Phenergan) 6.25 mg in 50.25 mls @ 201 mls/hr IV Q6H PRN PRN Reason: Nausea And Vomiting Stop: 03/11/25 04:05 Multivitamins (Multivitamin Tab) 1 tab PO [facility] Stop: 03/11/25 08:59 Last Admin: 02/09/25 08:54 Dose: 1 tab Oxycodone HCl (Oxycodone Hcl Ir 5 Mg Tab (Immediate Release)) 5 mg PO Q4H PRN PRN Reason: Pain Stop: 02/23/25 04:05 Pantoprazole Sodium (Pantoprazole 40 Mg Tab) 40 mg PO QPM [facility] Stop: 03/11/25 20:59 Prednisone (Prednisone 20 Mg Tab) 40 mg PO DAILY [facility] Stop: 02/14/25 08:59 Rosuvastatin Calcium (Rosuvastatin Calcium 20 Mg Tab) 40 mg PO QPM [facility] Stop: 03/11/25 20:59 Thiamine HCl (Thiamine Hcl 100 Mg Tab) 100 mg PO QAM [facility] Stop: 03/12/25 08:59
[2025-02-09] MEDS: ROSUVASTATIN CALCIUM 20 MG TAB PO SCH (20:37)
[2025-02-10 06:28] LABS: Hematocrit (blood only) 39.9 % (42.0-52.0); Hemoglobin 14.0 g/dL (14.0-18.0); Immature Granulocytes # (auto) 0.14 K/uL (0.01-0.20); Immature Granulocytes % (auto) 0.8 %; Mean Corpuscular Hemoglobin 33.7 pg (25.0-34.0); Mean Corpuscular Volume 95.9 fL (80.0-100.0); Platelet Count 198 K/uL (130-400); RDW Standard Deviation 44.0 fL (36.4-46.3); Red Blood Count 4.16 M/uL (4.70-6.10); White Blood Count 18.65 K/ul (4.8-10.8)
[2025-02-10 06:57] LABS: Anion Gap 5.0 (3-11); Blood Urea Nitrogen 17.0 mg/dl (6-23); Calcium 8.7 mg/dl (8.6-10.3); Carbon Dioxide 30.0 mmol/L (21-32); Chloride 102.0 mmol/L (98-107); Creatinine Clr Calc Pharmacy 93.3 ml/min; Glucose 115.0 mg/dl (70-99(Fasting)); Magnesium 2.0 mg/dl (1.7-2.4); Potassium 4.3 mmol/L (3.5-5.1); Sodium 137.0 mmol/L (136-145)
[2025-02-10] MEDS: THIAMINE HCL 100 MG TAB PO SCH (07:45)
[2025-02-10] MEDS: predniSONE 20 MG TAB PO SCH (07:45)
[2025-02-10] MEDS: DOXYCYCLINE HYCLATE 100 MG CAP PO SCH (08:10)
--- NOTE | 2025-02-10 13:39 | Hospitalist Progress Note ---
Date of Service February 10, 2025 Assessment & Plan (1) Acute exacerbation of chronic obstructive pulmonary disease: Plan: History of COPD and was on oxygen before Presented with worsening shortness of breath for 2 days prior to admission No infection identified Received methylprednisone intravenously and now on oral prednisone Has been getting nebulized bronchodilators Clinically much better and would continue current management Has been on 2 L of oxygen and will need to have steps O2 saturation test prior to discharge Likely has acute bronchitis with increasing cough and also increasing white count Will add doxycycline Likely discharge tomorrow (2) Acute hypoxic respiratory failure: Plan: Assessment and plan below following discussion of case with ED provider and reviewing patient history/pertinent normal/abnormal diagnostic test results. Acute hypoxemic, hypercapnic respiratory failure secondary to COPD exacerbation No sepsis for now Has been requiring 2 L to maintain saturation Will get up to the steps O2 saturation test tomorrow Other significant medical conditions remained stable and are as below: CAD/PVD as per records Hypertension, slightly elevated- controlled now Hyperlipidemia, on statin Rx Alcohol abuse, last drink was yesterday Past tobacco abuse DVT prophylaxis. [email or web address] subcu Full code Text document was generated using [employer] voice recognition software. It may contain grammatical or spelling errors. Kindly contact undersigned for clarification of any documentation item in question. (3) HTN, goal below 130/80: (4) Dyslipidemia, goal LDL below 70: (5) History of AAA (abdominal aortic aneurysm) repair: Admission and Anticipated Discharge Date Admission Date: February 09, 2025 Subjective 02/09/2025 The patient was seen and examined in medical telemetry unit He has been feeling much better with improvement of shortness of breath and chest tightness Denies any wheezing, still has some cough without any phlegm No fever and no chills, no abdominal pain nausea no vomiting 02/10/2025 The patient was seen and examined in medical telemetry unit He has been better but complains to have cough productive of yellowish phlegm Denies any fever and or chills and saturating normally on 2 L Review of Systems Review of Systems: All systems reviewed and are unremarkable except as noted below Physical Exam Physical Exam: Lying in bed with minimal respiratory distress Constitutional: well developed, well nourished, + ill appearing and average body habitus Eyes: PERRL, conjunctivae normal, anicteric sclerae ENMT: external ear and nose normal, oropharynx normal Neck: trachea midline, no thyromegaly Respiratory: + respiratory distress ( minimal distres s at rest) Auscultation: + diminished lung sounds and + crackles (Minimal crackles at the bases more on the left); no wheezes Cardiovascular: Rate/Rhythm: regular rate and regular rhythm; not tachycardic Heart Sounds: normal S1 and normal S2; no murmur Extremities: no edema Gastrointestinal (Abdomen): Inspection/Auscultation: normal bowel sounds; abdomen not distended Percussion/Palpation: abdomen soft; abdomen nontender Neurologic: normal touch/pain/proprioception and moves all extremities; no focal motor deficits Lymphatic: no cervical or axillary lymphadenopathy Results & Data Results & Data Vital Signs (Past 12 Hours) Vital Signs Temp Pulse Pulse Resp BP Pulse Ox Pulse Ox 02/10/25 12:25 96 H 18 95 02/10/25 11:04 36.4 C L 94 H 20 111/68 92 02/10/25 10:28 02/10/25 08:03 36.5 C 91 H 20 104/63 99 02/10/25 07:27 92 H 20 97 02/10/25 05:37 97 H 02/10/25 04:59 93 02/10/25 02:00 36.4 C L 97 H 16 108/60 93 O2 Del Method O2 Del Method O2 Flow Rate O2 Flow Rate 02/10/25 12:25 Oxymask 2 02/10/25 11:04 Oxymask 1 02/10/25 10:28 Nasal Cannula 2 02/10/25 08:03 Room Air 02/10/25 07:27 Oxymask 3 02/10/25 05:37 02/10/25 04:59 Nasal Cannula 2 02/10/25 02:00 Oxymask 2 Laboratory Results Short CBC 02/10/25 Range/Units 05:42 WBC 18.65 H (4.8-10.8) K/ul Hgb 14.0 (14.0-18.0) g/dL Hct 39.9 L (42.0-52.0) % Plt Count 198 (130-400) K/uL BMP 02/10/25 05:42 Sodium 137 Potassium 4.3 Chloride 102 Carbon Dioxide 30 BUN 17 Creatinine 0.89 Glucose 115 H Calcium 8.7 Medications Administered Current Inpatient Medications Acetaminophen (Acetaminophen 325 Mg Tab) 650 mg PO QID PRN PRN Reason: pain/fever Stop: 03/11/25 04:05 Albuterol (Albut/Ipratrop 3mg/0.5mg Neb 3 Ml Vial) 3 ml NEB Q6R [facility]; Protocol Stop: 03/11/25 06:59 Last Admin: 02/10/25 12:25 Dose: 3 ml Amlodipine Besylate (Amlodipine Besylate 5 Mg Tab) 5 mg PO QPM [facility] Stop: 03/11/25 20:59 Last Admin: 02/09/25 20:38 Dose: 5 mg Doxycycline Hyclate (Doxycycline Hyclate 100 Mg Cap) 100 mg PO BID [facility] Stop: 02/15/25 08:59 Last Admin: 02/10/25 08:10 Dose: 100 mg Enoxaparin Sodium (Enoxaparin Inj 40 Mg/0.4 Ml Syr) 40 mg SQ [facility] Stop: 03/11/25 08:59 Last Admin: 02/10/25 07:45 Dose: 40 mg Folic Acid (Folic Acid 1 Mg Tab) 1 mg PO [facility] Stop: 03/11/25 08:59 Last Admin: 02/10/25 07:45 Dose: 1 mg Guaifenesin/Dextromethorphan (Guaifenesin/Dextrom Syrup 200mg/20mg 10ml Udc) 10 ml PO Q6H PRN PRN Reason: Cough Stop: 03/12/25 10:40 Lorazepam 1 mg/ Syringe 1 mls @ 2 mls/min IV UD PRN; Protocol PRN Reason: AWSS 6,7 (Sx Triggered) Stop: 03/11/25 04:05 Lorazepam 2 mg/ Syringe 2 mls @ 2 mls/min IV UD PRN; Protocol PRN Reason: AWSS 8,9 (Sx Triggered) Stop: 03/11/25 04:05 Lorazepam 3 mg/ Syringe 3 mls @ 2 mls/min IV ONCE PRN; Protocol PRN Reason: AWSS 10 & Above(Sx Triggered) Stop: 03/11/25 04:05 Promethazine HCl (Phenergan) 6.25 mg in 50.25 mls @ 201 mls/hr IV Q6H PRN PRN Reason: Nausea And Vomiting Stop: 03/11/25 04:05 Multivitamins (Multivitamin Tab) 1 tab PO [facility] Stop: 03/11/25 08:59 Last Admin: 02/10/25 07:45 Dose: 1 tab Oxycodone HCl (Oxycodone Hcl Ir 5 Mg Tab (Immediate Release)) 5 mg PO Q4H PRN PRN Reason: Pain Stop: 02/23/25 04:05 Pantoprazole Sodium (Pantoprazole 40 Mg Tab) 40 mg PO QPM [facility] Stop: 03/11/25 20:59 Last Admin: 02/09/25 20:38 Dose: 40 mg Prednisone (Prednisone 20 Mg Tab) 40 mg PO DAILY [facility] Stop: 02/14/25 08:59 Last Admin: 02/10/25 07:45 Dose: 40 mg Rosuvastatin Calcium (Rosuvastatin Calcium 20 Mg Tab) 40 mg PO QPM [facility] Stop: 03/11/25 20:59 Last Admin: 02/09/25 20:37 Dose: 40 mg Thiamine HCl (Thiamine Hcl 100 Mg Tab) 100 mg PO QAM [facility] Stop: 03/12/25 08:59 Last Admin: 02/10/25 07:45 Dose: 100 mg
[2025-02-11 07:16] LABS: Hematocrit (blood only) 40.9 % (42.0-52.0); Hemoglobin 14.1 g/dL (14.0-18.0); Immature Granulocytes # (auto) 0.23 K/uL (0.01-0.20); Immature Granulocytes % (auto) 1.9 %; Mean Corpuscular Hemoglobin 33.2 pg (25.0-34.0); Mean Corpuscular Volume 96.2 fL (80.0-100.0); Platelet Count 219 K/uL (130-400); RDW Standard Deviation 44.6 fL (36.4-46.3); Red Blood Count 4.25 M/uL (4.70-6.10); White Blood Count 12.17 K/ul (4.8-10.8)
[2025-02-11 07:29] LABS: Anion Gap 4.0 (3-11); Blood Urea Nitrogen 18.0 mg/dl (6-23); Calcium 8.8 mg/dl (8.6-10.3); Carbon Dioxide 32.0 mmol/L (21-32); Chloride 102.0 mmol/L (98-107); Creatinine Clr Calc Pharmacy 100.9 ml/min; Glucose 91.0 mg/dl (70-99(Fasting)); Potassium 4.0 mmol/L (3.5-5.1); Sodium 138.0 mmol/L (136-145)
[2025-02-11 07:52] VITALS: TEMP 97.5
[2025-02-11 10:08] VITALS: RESP 18
--- NOTE | 2025-02-11 11:00 | Hospitalist Progress Note ---
Date of Service February 11, 2025 Assessment & Plan (1) Acute exacerbation of chronic obstructive pulmonary disease: Plan: History of COPD and was on oxygen before Presented with worsening shortness of breath for 2 days prior to admission No infection identified Received methylprednisone intravenously and now on oral prednisone Has been getting nebulized bronchodilators Clinically much better and would continue current management Has been on 2 L of oxygen and will need to have steps O2 saturation test prior to discharge Likely has acute bronchitis with increasing cough and also increasing white count Will add doxycycline Clinically much better and has had 2 steps O2 saturation test He does not require any oxygen He will be discharged home this afternoon on oral doxycycline and a nebulizer machine at home (2) Acute hypoxic respiratory failure: Plan: Assessment and plan below following discussion of case with ED provider and reviewing patient history/pertinent normal/abnormal diagnostic test results. Acute hypoxemic, hypercapnic respiratory failure secondary to COPD exacerbation No sepsis for now Has been requiring 2 L to maintain saturation Will get up to the steps O2 saturation test tomorrow Saturating normally on room air and does not require any oxygen with ambulation Other significant medical conditions remained stable and are as below: CAD/PVD as per records Hypertension, slightly elevated- controlled now Hyperlipidemia, on statin Rx Alcohol abuse, last drink was yesterday Past tobacco abuse DVT prophylaxis. [id number] subcu Full code Text document was generated using [employer] voice recognition software. It may contain grammatical or spelling errors. Kindly contact undersigned for clarification of any documentation item in question. (3) HTN, goal below 130/80: (4) Dyslipidemia, goal LDL below 70: (5) History of AAA (abdominal aortic aneurysm) repair: Admission and Anticipated Discharge Date Admission Date: February 09, 2025 Subjective 02/09/2025 The patient was seen and examined in medical telemetry unit He has been feeling much better with improvement of shortness of breath and chest tightness Denies any wheezing, still has some cough without any phlegm No fever and no chills, no abdominal pain nausea no vomiting 02/10/2025 The patient was seen and examined in medical telemetry unit He has been better but complains to have cough productive of yellowish phlegm Denies any fever and or chills and saturating normally on 2 L 02/11/2025 The patient was seen and examined in medical telemetry unit He has been feeling much better denies any significant symptoms except some cough He denies any shortness of breath at rest or with ambulation He will be discharged home this afternoon Review of Systems Review of Systems: All systems reviewed and are unremarkable except as noted below Physical Exam Physical Exam: Lying in bed with minimal respiratory distress Constitutional: well developed, well nourished, + ill appearing and average body habitus Eyes: PERRL, conjunctivae normal, anicteric sclerae ENMT: external ear and nose normal, oropharynx normal Neck: trachea midline, no thyromegaly Respiratory: + respiratory distress ( minimal distres s at rest) Auscultation: + diminished lung sounds and + crackles (Minimal crackles at the bases more on the left); no wheezes Cardiovascular: Rate/Rhythm: regular rate and regular rhythm; not tachycardic Heart Sounds: normal S1 and normal S2; no murmur Extremities: no edema Gastrointestinal (Abdomen): Inspection/Auscultation: normal bowel sounds; abdomen not distended Percussion/Palpation: abdomen soft; abdomen nontender Neurologic: normal touch/pain/proprioception and moves all extremities; no focal motor deficits Lymphatic: no cervical or axillary lymphadenopathy Results & Data Results & Data Vital Signs (Past 12 Hours) Vital Signs Temp Pulse Pulse Pulse Pulse Resp Resp 02/11/25 09:56 89 86 20 02/11/25 07:52 36.4 C L 88 20 02/11/25 07:34 78 02/11/25 07:07 72 16 02/11/25 02:57 36.5 C 74 18 Resp BP Pulse Ox Pulse Ox Pulse Ox O2 Del Method O2 Flow Rate 02/11/25 09:56 18 92 90 02/11/25 07:52 125/75 95 Room Air 02/11/25 07:34 02/11/25 07:07 98 Oxymask 2 02/11/25 02:57 115/65 95 Oxymask 2 Laboratory Results Short CBC 02/11/25 Range/Units 06:34 WBC 12.17 H (4.8-10.8) K/ul Hgb 14.1 (14.0-18.0) g/dL Hct 40.9 L (42.0-52.0) % Plt Count 219 (130-400) K/uL BMP 02/11/25 06:34 Sodium 138 Potassium 4.0 Chloride 102 Carbon Dioxide 32 BUN 18 Creatinine 0.83 Glucose 91 Calcium 8.8 Medications Administered Current Inpatient Medications Acetaminophen (Acetaminophen 325 Mg Tab) 650 mg PO QID PRN PRN Reason: pain/fever Stop: 03/11/25 04:05 Albuterol (Albut/Ipratrop 3mg/0.5mg Neb 3 Ml Vial) 3 ml NEB Q6R [facility]; Protocol Stop: 03/11/25 06:59 Last Admin: 02/11/25 07:07 Dose: 3 ml Amlodipine Besylate (Amlodipine Besylate 5 Mg Tab) 5 mg PO QPM [facility] Stop: 03/11/25 20:59 Last Admin: 02/10/25 20:07 Dose: 5 mg Doxycycline Hyclate (Doxycycline Hyclate 100 Mg Cap) 100 mg PO BID [facility] Stop: 02/15/25 08:59 Last Admin: 02/11/25 08:41 Dose: 100 mg Enoxaparin Sodium (Enoxaparin Inj 40 Mg/0.4 Ml Syr) 40 mg SQ QAM [facility] Stop: 03/11/25 08:59 Last Admin: 02/11/25 08:41 Dose: Not Given Folic Acid (Folic Acid 1 Mg Tab) 1 mg PO QAM [facility] Stop: 03/11/25 08:59 Last Admin: 02/11/25 08:41 Dose: 1 mg Guaifenesin/Dextromethorphan (Guaifenesin/Dextrom Syrup 200mg/20mg 10ml Udc) 10 ml PO Q6H PRN PRN Reason: Cough Stop: 03/12/25 10:40 Last Admin: 02/10/25 17:40 Dose: 10 ml Lorazepam 1 mg/ Syringe 1 mls @ 2 mls/min IV UD PRN; Protocol PRN Reason: AWSS 6,7 (Sx Triggered) Stop: 03/11/25 04:05 Lorazepam 2 mg/ Syringe 2 mls @ 2 mls/min IV UD PRN; Protocol PRN Reason: AWSS 8,9 (Sx Triggered) Stop: 03/11/25 04:05 Lorazepam 3 mg/ Syringe 3 mls @ 2 mls/min IV ONCE PRN; Protocol PRN Reason: AWSS 10 & Above(Sx Triggered) Stop: 03/11/25 04:05 Promethazine HCl (Phenergan) 6.25 mg in 50.25 mls @ 201 mls/hr IV Q6H PRN PRN Reason: Nausea And Vomiting Stop: 03/11/25 04:05 [facility]ivit[facility] ([facility]amin Tab) [facility] Stop: 03/11/25 08:59 Last Admin: 02/11/25 08:41 Dose: 1 tab Oxycodone HCl (Oxycodone Hcl Ir 5 Mg Tab (Immediate Release)) 5 mg PO Q4H PRN PRN Reason: Pain Stop: 02/23/25 04:05 Pantoprazole Sodium (Pantoprazole 40 Mg Tab) 40 mg PO QPM [facility] Stop: 03/11/25 20:59 Last Admin: 02/10/25 20:06 Dose: 40 mg Prednisone (Prednisone 20 Mg Tab) 40 mg PO DAILY [facility] Stop: 02/14/25 08:59 Last Admin: 02/11/25 08:41 Dose: 40 mg Rosuvastatin Calcium (Rosuvastatin Calcium 20 Mg Tab) 40 mg PO QPM [facility] Stop: 03/11/25 20:59 Last Admin: 02/10/25 20:06 Dose: 40 mg Thiamine HCl (Thiamine Hcl 100 Mg Tab) [facility] Stop: 03/12/25 08:59 Last Admin: 02/11/25 08:41 Dose: 100 mg
[2025-02-11 11:57] VITALS: PULSE 83; O2SAT 93
[2025-02-11 13:09] VITALS: BP 123/69
--- NOTE | 2025-02-11 15:21 | Discharge Summary ---
Date of Service February 11, 2025 Admission HPI Per Admitting Provider History obtained from patient and records. Medical history significant for CAD/PVD, COPD, pulmonary nodules, hypertension, hyperlipidemia, alcohol abuse, past tobacco abuse. Recent confinement last December 2024 for respiratory failure secondary to COPD exacerbation. Patient had worsening shortness of breath the last 2 days. Chronic cough symptoms not any worse. Denies chest pain. Denies aspiration. Home O2 taken back by insurance as per patient because his oxygen was good. Not sure about sick contacts. O2 sats 80s upon arrival at the ER. Solu-Medrol, and neb treatment administered at the ER. Patient currently feeling much better. 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 Admission Exam Per Admitting Provider Physical Exam: GENERAL: Comfortable, slightly anxious, slightly hard of hearing, no respiratory distress SKIN: Normal color, warm HEENT: Roundup palpebral conjunctivae, no ptosis, dry buccal mucosa, O2 mask in place NECK : Supple, no tenderness CHEST : Decreased breath sounds, no tenderness HEART : RRR, no obvious murmurs ABDOMEN: Some distention, nontender EXTREMITIES : Minimal LE swelling/tenderness, palpable pulses, no other conspicuous deformities noted NEUROLOGIC : Coherent, no facial asymmetry, no other gross focality Principal Diagnosis Acute lower GI bleed- likely diverticular, colonoscopy negative for any acute bleeding Discharge Exam Lying in bed with minimal respiratory distress Constitutional well developed, well nourished, + ill appearing and average body habitus Eyes PERRL, conjunctivae normal, anicteric sclerae ENMT external ear and nose normal, oropharynx normal Neck trachea midline, no thyromegaly Respiratory + respiratory distress ( minimal distress at rest) Auscultation: + diminished lung sounds and + crackles (Minimal crackles at the bases more on the left); no wheezes Cardiovascular Rate/Rhythm: regular rate and regular rhythm; not tachycardic Heart Sounds: normal S1 and normal S2; no murmur Extremities: no edema Gastrointestinal (Abdomen) Inspection/Auscultation: normal bowel sounds; abdomen not distended Percussion/Palpation: abdomen soft; abdomen nontender Neurologic normal touch/pain/proprioception and moves all extremities; no focal motor deficits Lymphatic no cervical or axillary lymphadenopathy Discharge Data Allergies Allergy/AdvReac Type Severity Reaction Status Date / Time bee venom protein (honey bee) Allergy Severe EXTREME Verified 01/20/25 00:26 SWELLING AT STING SIGHTS. tree and shrub pollen Allergy Severe Difficulty Verified 01/20/25 00:26 Breathing pollen extracts Allergy Intermediate DIFFICULTY Verified 01/20/25 00:26 BREATHING/CONGESTION Consultations 02/09/25 03:28 ED Decision to Admit Stat Ordered Studies 02/08/25 23:13 CT angio chest PE protocol Stat Hospital Course (1) Acute exacerbation of chronic obstructive pulmonary disease: History of COPD and was on oxygen before Presented with worsening shortness of breath for 2 days prior to admission No infection identified Received methylprednisone intravenously and now on oral prednisone Has been getting nebulized bronchodilators Clinically much better and would continue current management Has been on 2 L of oxygen and will need to have steps O2 saturation test prior to discharge Likely has acute bronchitis with increasing cough and also increasing white count Will add doxycycline Clinically much better and has had 2 steps O2 saturation test He does not require any oxygen He will be discharged home this afternoon on oral doxycycline and a nebulizer machine at home (2) Acute hypoxic respiratory failure: Assessment and plan below following discussion of case with ED provider and reviewing patient history/pertinent normal/abnormal diagnostic test results. Acute hypoxemic, hypercapnic respiratory failure secondary to COPD exacerbation No sepsis for now Has been requiring 2 L to maintain saturation Will get up to the steps O2 saturation test tomorrow Saturating normally on room air and does not require any oxygen with ambulation Other significant medical conditions remained stable and are as below: CAD/PVD as per records Hypertension, slightly elevated- controlled now Hyperlipidemia, on statin Rx Alcohol abuse, last drink was yesterday Past tobacco abuse DVT prophylaxis. Lovenox subcu Full code Text document was generated using [employer] voice recognition software. It may contain grammatical or spelling errors. Kindly contact undersigned for clarification of any documentation item in question. (3) HTN, goal below 130/80: (4) Dyslipidemia, goal LDL below 70: (5) History of AAA (abdominal aortic aneurysm) repair: Total Time Total Time Spent Total Time Spent (In Minutes): 35 Minutes Discharge Plan Discharge Items Patient Disposition: Home - Self-Care Reason For Visit: RESP FAILURE Discharge Diagnosis: COPD exacerbation, acute bronchitis Condition on Discharge: Good Activity: Resume your previous activity Non-emergency contact: Primary Care Provider Call non-emergency contact if: you have any medication questions and your symptoms worsen Follow-up/Referrals: [facility] [Primary Care Provider] - (The [place] will call you with a follow up appointment.) Diet: Heart Healthy Addtl Attending Provider Instructions: Please take precautions to avoid fall Finish the course of antibiotic Use nebulized bronchodilator as advised Keep your appointment with your healthcare provider Pending Studies at Discharge: No Stand-Alone Forms: My [facility], Smoking Cessation Medications and DC Order Prescriptions: New doxycycline hyclate 100 mg Capsule 100 mg PO BID Qty: 12 0RF prednisone 20 mg Tablet 40 mg PO DAILY Qty: 8 0RF albuterol sulfate 0.63 mg/3 mL solution for nebulization 0.63 mg inhalation Q6H PRN (Reason: bronchospasm) Qty: 75 0RF Continued albuterol sulfate 90 mcg/actuation Hfa Aerosol Inhaler 2 puff INHALATION Q4H PRN (Reason: Shortness Of Breath Or Wheezing) rosuvastatin 40 mg Tablet 40 mg PO QPM folic acid 1 mg Tablet 1 mg PO QPM cholestyramine (with sugar) [Questran] 4 gram Powder In Packet 4 g PO DAILY PRN (Reason: NEEDED PER PT'S ) Rx Instructions: administer w/meal; avoid other meds within 1hr before or 4-6hr after dose fluticasone furoate-vilanterol 100-25 mcg/dose Blister With Device 1 inh INHALATION QPM amlodipine 5 mg tablet 5 mg PO QPM pantoprazole 40 mg tablet,delayed release (DR/EC) 40 mg PO QPM Discharge Orders: Discharge Order (Routine); Ordered 02/11/25 Ordered By: Joy Urban Admission Data Admit Date/Time: 02/09/25 03:40 Attending Provider: Joy Urban Admit Provider: Moe Hammer Primary Care Provider: [facility] Other Providers: Moe Hammer Other Interventions: Discharge Summary Assessment (RN) Last Done: 02/11/25 13:08
== END 2025-02-11 13:34 | disposition home or self-care (01) | DRG 189 ==
LOC: ED 22:53 → 2N 02-09 03:40